=== PATIENT | female | born 1965 | race Caucasian/White ===

== ENCOUNTER 2020-04-07 02:32 | Outpatient (CLI) | payer BC, SELFPAY ==
[2020-04-07 19:47] LABS: SARS-CoV-2 RNA PCR Negative
== END 2020-04-07 02:33 | disposition home or self-care (01) ==
LOC: ANHCOVIDDT 02:33
PROVIDERS: PCP Internal Medicine; Visit Provider Podiatrist Foot & Ankle Surgery
DX: Z01.818 Encounter for other preprocedural examination (principal); Z20.828 Contact with and (suspected) exposure to other viral communicable diseases
CPT/HCPCS: 87635; C9803; U0003

== ENCOUNTER 2020-04-10 04:03 | Day surgery (SDC) | payer BC, SELFPAY ==
[2020-04-06 13:32] VITALS: BMI 35.4
--- NOTE | 2020-04-09 08:36 | WPDANESEPPF ---
Anes - Initial Pre Proc Eval Procedure: Operation Date: 04/10/20 07:30 Proposed Procedures p Lapidus Bunionectomy Left Foot, - Garcia Carrillo JR, MD s Lenard Phalangeal Osteotomy Left Hallux, Parker Shortening Second Metatarsal Osteotomy Left Foot - Garcia Carrillo JR, MD <Clarence Ortez DO - Last Filed: 04/09/20 08:37> Date/Time: 04/09/20 08:36 <Clarence Ortez DO - Last Filed: 04/09/20 08:37> Surgeon: Garcia Carrillo JR, MD <Clarence Ortez DO - Last Filed: 04/09/20 08:37> Pre Op Diagnosis: bunion left foot,metatarsaligia sub 2nd MPJ left <Clarence Ortez DO - Last Filed: 04/09/20 08:37> Patient Data Age: 54 Gender: F Height: 1.66 m Weight: 98 kg <Clarence Ortez DO - Last Filed: 04/09/20 08:37> Allergies Allergy/AdvReac Type Severity Reaction Status Date / Time No Known Allergies Allergy Unverified 04/06/20 13:29 <Clarence Ortez DO - Last Filed: 04/09/20 08:37> Home Medications Medication Instructions Recorded Confirmed Type doxepin 10 mg PO HS PRN 04/06/20 04/06/20 History escitalopram oxalate [Lexapro] 10 mg PO HS 04/06/20 04/06/20 History <Clarence Ortez DO - Last Filed: 04/09/20 08:37> Patient hx anesthesia problems: none <Gabe Avila MD - Last Filed: 04/10/20 07:03> Family hx anesthesia problems: none <Gabe Avila MD - Last Filed: 04/10/20 07:03> [facility] Past Medical History Medical History: Medical History (Updated 04/10/20 @ 07:02 by Gabe Avila MD) Depression with anxiety ETOH abuse 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 Obesity (BMI 30-39.9) Pure hypercholesterolemia <Clarence Ortez DO - Last Filed: 04/09/20 08:37> Surgical History Surgical History: Surgical History (Updated 12/20/19 @ 08:43 by Pamela Christy CMA) History of cholecystectomy <Clarence Ortez DO - Last Filed: 04/09/20 08:37> Family History Family History: Family History (Updated 10/30/17 @ 15:33 by DOCTOR UNKNOWN) Father Family history of lung cancer Family history of malignant neoplasm of kidney Family history of malignant neoplasm Other Family history of cardiovascular disease Family history of rheumatoid arthritis <Clarence Ortez DO - Last Filed: 04/09/20 08:37> Social History Social History: Social History (Updated 12/20/19 @ 08:44 by Pamela Christy [facility]) Smoking status: Never smoker Alcohol intake: current Drinks per week: 16 Substance use: never Living arrangements: with family Spiritual care concerns: No <Clarence Ortez DO - Last Filed: 04/09/20 08:37> Anes - Eval Final PreProcedure Day of Procedure 04/09/20 08:36 <Clarence Ortez DO - Last Filed: 04/09/20 08:37> Patient weight: obese <Clarence Ortez DO - Last Filed: 04/09/20 08:37> obese <Gabe Avila MD - Last Filed: 04/10/20 07:03> Heart: regular rate and rhythm <Clarence Ortez DO - Last Filed: 04/09/20 08:37> regular rate and rhythm <Gabe Avila MD - Last Filed: 04/10/20 07:03> Lungs: clear to auscultation and normal air movement <Clarence Ortez DO - Last Filed: 04/09/20 08:37> clear to auscultation and normal air movement <Gabe Avila MD - Last Filed: 04/10/20 07:03> Airway: Mallampati scale class II <Clarence Ortez DO - Last Filed: 04/09/20 08:37> Mallampati scale class II <Gabe Avila MD - Last Filed: 04/10/20 07:03> Neurological: alert and oriented <Clarence Ortez DO - Last Filed: 04/09/20 08:37> alert and oriented <Gabe Avila MD - Last Filed: 04/10/20 07:03> Last oral intake: >/= 8 hours <Clarence Ortez DO - Last Filed: 04/09/20 08:37> >/= 8 hours <Gabe Avila MD - Last Filed: 04/10/20 07:03> ASA classification: II <Clarence Ortez DO - Last Filed: 04/09/20 08:37
--- NOTE | 2020-04-09 08:37 | WPDANESPNB ---
Anes - Peripheral Nerve Block Date/Time: 04/09/20 08:37 <Clarence Ortez DO - Last Filed: 04/14/20 10:22> I have discussed with the patient/family/POA the placement of a peripheral nerve block for post-operative pain management, including associated risks, benefits, complications, and side effects. Alternative methods of post-operative analgesia were detailed. Questions were solicited and answers provided to the satisfaction of the patient/family/POA. <Clarence Ortez DO - Last Filed: 04/14/20 10:22> Time-Out: A pre-procedural Time-Out was completed immediately before starting the procedure and confirmed: Patient Identification, Site, Procedure, Patient Position and the Availability of Requisite Equipment. <Clarence Ortez DO - Last Filed: 04/14/20 10:22> Clinical Indications: Acute post-operative pain management requested by the operative surgeon. <Clarence Ortez DO - Last Filed: 04/14/20 10:22> Nerve Block Insertion Note Anes-nerve block: posterior fossa sciatic left and adductor canal left <Clarence Ortez DO - Last Filed: 04/14/20 10:22> posterior fossa sciatic (20cc) left and adductor canal (10cc) left <Gabe Avila MD - Last Filed: 04/10/20 08:22> Patient position: supine (for adductor canal) and other (right lateral for popliteal) <Clarence Ortez DO - Last Filed: 04/14/20 10:22> supine <Gabe Avila MD - Last Filed: 04/10/20 08:22> Skin prep: chlorhexidine <Clarence Ortez DO - Last Filed: 04/14/20 10:22> chlorhexidine <Gabe Avila MD - Last Filed: 04/10/20 08:22> Needle: 22 gauge, stimulating, insulated echogenic needle. <Clarence Ortez DO - Last Filed: 04/14/20 10:22> Needle length: 80 mm <Clarence Ortez DO - Last Filed: 04/14/20 10:22> 80 mm <Gabe Avila MD - Last Filed: 04/10/20 08:22> Technique: nerve stimulation lost at (mA) (for popliteal lost at 0.2) and ultrasound <Clarence Ortez DO - Last Filed: 04/14/20 10:22> ultrasound (in plane) <Gabe Avila MD - Last Filed: 04/10/20 08:22> Injectate: bupivacaine 0.5% with epi 5 mcg/ml (20 mL for popliteal, 10 mL for adductor canal) <Clarence Ortez DO - Last Filed: 04/14/20 10:22> bupivacaine 0.25% with epi 5 mcg/ml <Gabe Avila MD - Last Filed: 04/10/20 08:22> Observations: tolerated well <Clarence Ortez DO - Last Filed: 04/14/20 10:22> tolerated well <Gabe Avila MD - Last Filed: 04/10/20 08:22> Complications: none <Clarence Ortez DO - Last Filed: 04/14/20 10:22> none <Gabe Avila MD - Last Filed: 04/10/20 08:22> Procedure start time:: 725 <Gabe Avila MD - Last Filed: 04/10/20 08:22> Procedure end time:: 730 <Gabe Avila MD - Last Filed: 04/10/20 08:22>
[2020-04-10] VITALS (10 sets, daily range): BP systolic 100–137; BP diastolic 58–98; PULSE 56–83; RESP 12–18; TEMP 36.3–36.7; O2SAT 93–100
--- NOTE | ~2020-04-10 | XR_ITS ---
EXAMINATION: XR surgery orthopedic EXAM DATE: 04/10/2020 09:33 INDICATION: Left foot bunionectomy. TECHNIQUE: Fluoroscopy used during XR surgery orthopedic performed by Dr. Garcia Carrillo JR MD. The DAP for this procedure was 26 cGycm2. FINDINGS: Frontal and lateral images demonstrate an orthopedic hardware, with 1st proximal phalangea l osteotomy and internal fixation, and probably surgical changes at the 1st metatarsal head. There ar e 2 small screws in the neck of the 2nd metatarsal head. There is orthopedic hardware bridging the 1s t tarsometatarsal joint. Correlate with procedure note. IMPRESSION: Fluoroscopy used during left bunionectomy surgery. Reviewed, dictated and finalized at location A. PER BEATER
[2020-04-10] MEDS: LACTATED RINGERS 1,000 ML 30 ML IV CONT ×2 (06:40→11:03)
--- NOTE | 2020-04-10 07:18 | WPDHPUPDATE1 ---
History and Physical Update Update Date/Time: 04/10/20 07:18 History and Physical has been reviewed, including an updated exam of the patient. There are NO changes in the patient's condition. Risks, benefits, and alternatives have been discussed and questions answered. Patient agrees to proceed with procedure.
[2020-04-10] MEDS: SCOPOLAMINE 1.5 MG PATCH TRANSDERM (07:35)
[2020-04-10] MEDS: ceFAZolin 2 GM/D5W 50 ML 2 GM/50 ML BAG IVPB (07:42)
[2020-04-10] MEDS: fentaNYL CITRATE INJ (*CRX) 100 MCG/2 ML VIAL 25 MCG IV PUSH ×8 (10:12→10:29)
--- NOTE | 2020-04-10 10:13 | PM.OP ---
Procedure Note - Brief Procedure Note - Brief Date of procedure: 04/10/20 Pre-op diagnosis: bunion left foot,metatarsaligia sub 2nd MPJ left Post-op diagnosis: same Procedure performed: 1. Lapidus bunionectomy left foot 2. Lenard phalangeal osteotomy left hallux 3. Parker shortening 2nd metatarsal osteotomy left foot Anesthesia: GLMA Surgeon: Garcia Carrillo JR, DPM Estimated blood loss (mL): 1 Complications: No immediate complications Condition: stable Disposition: same day
[2020-04-10] MEDS: HYDROmorphone HCL INJ (*CRX) 1 MG/ML SYR 0.5 MG IV PUSH ×2 (10:32→10:40)
[2020-04-10] MEDS: MIDAZOLAM HCL (*CRX) 2 MG/2 ML VIAL IV PUSH (10:59)
[2020-04-10] MEDS: oxyCODONE HCL (*CRX) 5 MG TAB IR PO (12:08)
--- NOTE | 2020-04-10 14:06 | SUR.PHASEII ---
NURYS RN INSTRUCTED PT RE: SQ INJECTION OF ANTI-COAGULANT MED PRESCRIBED TODAY BY DR. MEYER; PT RETURNED DEMONSTRATION WITH GOOD TECHNIQUE.
--- NOTE | 2020-04-10 23:04 | OP_ITS ---
DATE OF PROCEDURE: 04/10/2020 PREOPERATIVE DIAGNOSES: 1. Hallux abductovalgus deformity, left foot. 2. Metatarsalgia, 2nd metatarsophalangeal joint, left foot. POSTOPERATIVE DIAGNOSES: 1. Hallux abductovalgus deformity, left foot. 2. Metatarsalgia, 2nd metatarsophalangeal joint, left foot. PROCEDURE: 1. Lapidus bunionectomy, left foot. 2. Lenard phalangeal osteotomy of the left hallux. 3. Parker shortening, 2nd metatarsal osteotomy, left foot. PATHOLOGY: None. ANESTHESIA: General with popliteal fossa block. HEMOSTASIS: Pneumatic ankle tourniquet at 250 mmHg. ESTIMATED BLOOD LOSS: Minimal. MATERIALS USED: One Treace lapiplasty system with two 4-hole plates and 8 locking screws, 1 David 8 mm Nitinol staple, 2 Norman 2.0 mm cannulated screws, 3-0 PDS, 2-0 Vicryl, 3-0 Vicryl, 4-0 Vicryl, and 4-0 Monocryl. INJECTABLES: None. COMPLICATIONS: None. PROCEDURE IN DETAIL: Under mild sedation, the patient was brought into the operative room, placed on the operating room table in the supine position. Pneumatic ankle tourniquet was placed about the patient's left ankle. Following general anesthesia and a previous popliteal fossa block, the foot was then scrubbed, prepped, and draped in the usual aseptic manner. An Esmarch bandage was then used to examine the patient's left foot and pneumatic ankle tourniquet was then inflated. Surgery began in the following manner. Attention was directed to the dorsal aspect of the 1st metatarsocuneiform joint of the left foot where a 4 cm incision was made just medial to the extensor hallucis longus tendon. Incision was continued deep down through the subcutaneous tissues using sharp and blunt dissection. All bleeders were ligated and cauterized as necessary. At this point, a full length periosteal incision was made. The full-length of the skin incision exposing the 1st metatarsal cuneiform joint. At this point, a sagittal saw blade was used to free up any adhesions to the 1st metatarsocuneiform joint. A Steinmann pin was placed along the medial aspect of the base of the 1st metatarsal and the 1st metatarsal was rotated in order to demonstrate the full frontal plane rotation of the bunion deformity could be achieved. A fulcrum was placed along the lateral aspect of the 1st metatarsal. A 1 cm incision was made along the lateral aspect of the 1st metatarsophalangeal joint. At this point, a lateral capsule release was performed. I also freed up the adductor hallucis tendon as well as the fibular sesamoid both laterally, proximally, and distally. At this point, the lateral contracture present to the bunion deformity was noted to be slightly reduced. Attention was then redirected back to the 1st metatarsocuneiform joint. The lapiplasty positioner was placed along the base of the 1st metatarsal and also through a small stab incision that was made overlying the base of the 2nd metatarsal. The positioner was tightened in order to reduce the 1st intermetatarsal angle as well as the frontal plane rotation of the 1st metatarsal. The joint seeker was placed within the 1st metatarsocuneiform joint as well as the cutting guide. Fluoroscopy was used to make sure that adequate position of the cutting guide was positioned atop the 1st metatarsocuneiform joint as well as in order to make sure that adequate resection of the base of the 1st metatarsal as well as the anterior lateral aspect of the cuneiform will be resected. After fluoroscopic imaging was used to make sure that the resection was noted, the sagittal bone saw was used to resect the articular surface to the anterior aspect of the medial cuneiform as well as the base of the 1st metatarsal. At this point, the cutting guide was removed and the resection of the articular carti
== END 2020-04-10 13:05 | disposition home or self-care (01) ==
PROVIDERS: PCP Internal Medicine; Visit Provider Podiatrist Foot & Ankle Surgery
PROC: (CPT 28299; principal; 2020-04-10 07:30)
PROC: (CPT 28750; 2020-04-10 07:30)
DX: M20.12 Hallux valgus (acquired), left foot (principal); M77.42 Metatarsalgia, left foot; G89.18 Other acute postprocedural pain
CPT/HCPCS: 28298; 28308; 28297; 64447; 64445; A9270; C1713; C9290; J0690; J1100; J1170; J1885; J2250; J2405; J2704; J3010; J7120

== ENCOUNTER 2022-02-15 07:52 | Outpatient (CLI) | payer BC, SELFPAY ==
--- NOTE | 2022-02-28 19:43 | WPDHOMESLEEP ---
Sleep Study - Home Unattended Date of Study: 02/15/22 Ordering Provider: Alexa Sosa NP Interpreting Provider: Merced Hagan, DO Home Sleep Study Type: Apnea Link Air Height: 1.65 m Weight: 88.451 kg Body Mass Index: 32.4 Neck Circumference (inches): 15.25 [place]ino: 5 Reason for Sleep Study Unable to stay asleep Sleep History The patient is a 56-year-old female with anxiety, depression, GERD, hyperlipidemia, alcohol abuse, insomnia and obesity that had a sleep study ordered by her primary care for evaluation sleep apnea. The patient rarely awakens from sleep short of breath. She occasionally awakens at night with heartburn, belching or cough. She frequently snores and is occasionally loud enough others complain. She occasionally has trouble sleeping when she has a cold. He denies waking up gasping for air throughout the night. She denies having breathing problems at night observed by herself or others. She frequently sweats excessively at night. She occasionally has heart palpitations or irregular heartbeats during the night. She rarely falls asleep during the day. She rarely falls asleep while driving. She rarely experiences loss of muscle tone when extremely emotional. She occasionally has trouble at school or work due to sleepiness. She denies feeling unable to move while waking up or falling asleep. She rarely experiences vivid dreamlike scenes upon awakening or falling asleep. She denies feeling afraid of going to sleep. She rarely has nightmares. She rarely remembers her dreams. She frequently has thoughts racing through her mind. She frequently feels sad, depressed and anxious. She rarely has muscular tension. She rarely notices parts of her body jerk. She rarely kicks during the night. She rarely has crawling and aching feelings in her legs and occasionally has leg pain during the night. He denies grinding her teeth during sleep and awakening with morning jaw pain. She denies being bothered by pain during the day and denies being awakened by pain during the night. She denies waking up feeling stiff in the morning. She denies waking up with sore achy muscles. She occasionally wakes up with pain in the neck, spine or other joints. She goes to bed at 10:00 p.m. on both weekdays and weekends. He can take her several hours to fall asleep. She wakes up several times throughout the night for unknown reasons. He can take hours for her to fall back asleep. She wakes up between 6-7 a.m. on both weekdays and weekends. She typically gets 4 hours of sleep per night. She does not stay in bed after waking up in morning. She currently lives with her . She denies consuming any caffeinated beverages within 2 hours of bedtime. She denies engaging in physical exercise before bedtime. She will watch television before falling asleep. She denies taking naps in the afternoon or She drinks 2 caffeinated beverages per day. She drinks 2-3 alcoholic beverages per day. She denies tobacco and recreational drug use. 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
[2022-02-28 19:45] VITALS: BMI 32.4
== END 2022-02-16 15:17 | disposition home or self-care (01) ==
LOC: ANHCSM 07:55
PROVIDERS: PCP Internal Medicine; Visit Provider Nurse Practitioner
DX: G47.33 Obstructive sleep apnea (adult) (pediatric) (principal)
CPT/HCPCS: 95806

== ENCOUNTER 2022-07-11 14:24 | Outpatient (CLI) | payer BC, SELFPAY ==
--- NOTE | ~2022-07-11 | XR_ITS ---
EXAMINATION: XR chest 2V 07/11/2022 14:37 INDICATION: Cough PROCEDURE: 2 view chest COMPARISON: 01/10/2015 FINDINGS: The lungs are clear. The cardiomediastinal silhouette is within normal limits. There are no pleural effusions. There is no pneumothorax suspected. IMPRESSION: 1: NO ACUTE CARDIOPULMONARY DISEASE. Reviewed, dictated and finalized at location B. PLANNER
== END 2022-07-11 14:25 ==
PROVIDERS: PCP Internal Medicine; Visit Provider Nurse Practitioner
DX: R05.9 Cough, unspecified (principal)
CPT/HCPCS: 71046

== ENCOUNTER 2022-11-17 08:29 | Outpatient (CLI) | payer BC, SELFPAY ==
--- NOTE | ~2022-11-17 | US_ITS ---
EXAMINATION: US venous doppler [facility] DATE: 11/17/2022 09:09 INDICATION: Left lower limb pain TECHNIQUE: Segal scale images without and with compression and Doppler images of the left lower extrem ity veins were obtained. COMPARISON: None FINDINGS: The left common femoral vein, profunda femoral vein, femoral vein, popliteal vein, peroneal trunk, posterior tibial veins, and greater saphenous vein are patent. There is partial thrombosis of the lesser saphenous vein. IMPRESSION: 1. No evidence of deep venous thrombosis. 2. Partial thrombosis of the lesser saphenous vein, a superficial lower extremity vein. Reviewed, dictated and finalized at location L. IMPRESSION: 1. No evidence of deep venous thrombosis. 2. Partial thrombosis of the lesser saphenous vein, a superficial lower extremi ty vein.
== END 2022-11-17 08:30 | disposition home or self-care (01) ==
PROVIDERS: PCP Internal Medicine; Visit Provider Nurse Practitioner
DX: M79.605 Pain in left leg (principal); M25.562 Pain in left knee; I82.812 Embolism and thrombosis of superficial veins of left lower extremity
CPT/HCPCS: 73564; 93971

== ENCOUNTER → 2022-11-24 09:46 | Outpatient (CLI) | payer BC, SELFPAY ==
--- NOTE | ~2022-11-24 | US_ITS ---
EXAMINATION: US venous doppler [facility] DATE: 11/24/2022 10:10 INDICATION: Embolism and thrombosis of the superficial veins of the left lower limb TECHNIQUE: Grayscale ultrasound images without and with compression and Doppler ultrasound images of the left lower extremity veins were obtained. COMPARISON: 11/17/2022 FINDINGS: The visualized portions of left common femoral vein, profunda (deep) femoral vein, femoral vein, popl iteal vein, peroneal veins, posterior tibial veins, gastrocnemius vein and greater saphenous vein out flow are patent. Noncompressible nonocclusive appearing thrombus in the left lesser saphenous vein. 2 .2 x 1.6 x 0.7 cm Lynne's cyst. IMPRESSION: 1. Persistent thrombosis of the left lesser saphenous vein which is a superficial vein. No deep veno us necrosis in the left lower limb. Reviewed, dictated and finalized at location L. IMPRESSION: 1. Persistent thrombosis of the left lesser saphenous vein which is a superfic ial vein. No deep venous necrosis in the left lower limb.
== END ==
PROVIDERS: PCP Internal Medicine; Visit Provider Nurse Practitioner
DX: I82.812 Embolism and thrombosis of superficial veins of left lower extremity (principal)
CPT/HCPCS: 93971

== ENCOUNTER 2022-11-25 10:33 | Outpatient (CLI) | payer BC, SELFPAY ==
[2022-11-25 18:31] LABS: Basophils Absolute Auto 0.1 K/mm3 (0.0-0.1); Basophils Percent Auto 1.3 % (0.2-1.2); Eosinophils Absolute Auto 0.2 K/mm3 (0-0.3); Eosinophils Percent Auto 3.4 % (0-4.4); Hematocrit 39.8 % (37.0-47.0); Hemoglobin 13.1 g/dL (12.0-15.0); Immature Granulocyte Absolute 0.01 K/mm3 (0.00-0.031); Immature Granulocyte Percent A 0.2 % (0-0.5); Lymphocytes Absolute Auto 2.09 K/mm3 (0.9-3.2); Lymphocytes Percent Auto 39.7 % (18.3-44.2); Mean Corpuscular HGB Conc 32.9 g/dl (32-36); Mean Corpuscular Hemoglobin 31.6 pg (26-34); Mean Corpuscular Volume 95.9 fl (80-100); Mean Platelet Volume 10.2 fl (7.4-10.4); Monocytes Absolute Auto 0.5 K/mm3 (0.1-0.6); Monocytes Percent Auto 8.7 % (2.6-8.5); Neutrophils Absolute Auto 2.5 K/mm3 (1.3-6.7); Neutrophils Percent Auto 46.7 % (45.5-73.1); Platelet Count Result 291 k/mm3 (150-375); Red Blood Count 4.15 M/mm3 (4.2-5.4); Red Cell Distribution Width 12.5 % (11.5-14.5); White Blood Count 5.3 K/mm3 (4.5-10.0)
[2022-11-25 18:41] LABS: Alanine Aminotransferase 26 U/L (6-35); Albumin Level 4.2 g/dL (3.5-5.1); Alkaline Phosphatase 82 U/L (38-126); Anion Gap 3 mmol/L (8-16); Aspartate Amino Transferase 29 U/L (14-36); Bilirubin,Total 0.5 mg/dL (0.2-1.3); Blood Urea Nitrogen 11 mg/dL (7-17); Calcium 9.1 mg/dL (8.4-10.2); Carbon Dioxide 34 mmol/L (22-30); Chloride 102 mmol/L (98-107); Cholesterol 223 mg/dL (0-200); Estimated Glomerular Filt Rate > 60; Glucose 105 mg/dL (65-110); HDL Direct 90 mg/dL; Potassium 4.5 mmol/L (3.4-5.0); Sodium 139 mmol/L (137-145); Triglycerides 92 mg/dL (<150)
[2022-11-25 18:56] LABS: LDL Cholesterol Direct 92 mg/dL
[2022-12-01 22:42] LABS: Factor V (Leiden) Mutation NEGATIVE
== END 2022-11-25 10:34 | disposition home or self-care (01) ==
LOC: ANHGOSHLAB 10:34
PROVIDERS: PCP Internal Medicine; Visit Provider Nurse Practitioner
DX: I82.812 Embolism and thrombosis of superficial veins of left lower extremity (principal)
CPT/HCPCS: 36415; 80053; 80061; 81241; 84443; 85025

== ENCOUNTER 2023-01-19 08:50 | Outpatient (CLI) | payer BC, SELFPAY ==
--- NOTE | ~2023-01-19 | US_ITS ---
EXAMINATION: US venous doppler [facility] DATE: 01/19/2023 09:07 INDICATION: Left lesser saphenous vein superficial venous thrombosis TECHNIQUE: Grayscale ultrasound images without and with compression and Doppler ultrasound images of the left lower extremity veins were obtained. COMPARISON: None. FINDINGS: The visualized portions of left common femoral vein, profunda (deep) femoral vein, femoral vein, popl iteal vein, peroneal veins, posterior tibial veins, gastrocnemius vein and greater saphenous vein out flow are patent. Superficial venous thrombus within the distal left lesser saphenous vein which is on ly partially compressible. The previously thrombosed or proximal left lesser saphenous vein is now pa tent and compressible. IMPRESSION: 1. Decrease in the amount of superficial venous thrombosis now isolated to the distal left lesser sap henous vein. 2. No deep venous thrombosis in the left lower limb. Reviewed, dictated and finalized at location A. IMPRESSION: 1. Decrease in the amount of superficial venous thrombosis now isolated to the distal left lesser saphenous vein. 2. No deep venous thrombosis in the left lower limb.
== END 2023-01-19 08:51 ==
LOC: GOSHIMG 08:51
PROVIDERS: PCP Internal Medicine; Visit Provider Nurse Practitioner
DX: I82.812 Embolism and thrombosis of superficial veins of left lower extremity (principal)
CPT/HCPCS: 93971

== ENCOUNTER 2023-01-31 14:55 | Outpatient (NON) | payer BC, SELFPAY ==
[2023-01-31 16:21] LABS: Toxigenic C. Diff NEGATIVE (NEGATIVE)
[2023-02-02 20:44] LABS: H pylori Ag Stool Not Detected (Not Detected)
[2023-02-06 19:03] LABS: Calprotectin, Stool 29 mcg/g
[2023-02-08 20:13] LABS: Pancreatic Elastase, Stool >500 mcg/g
== END 2023-01-31 14:56 | disposition home or self-care (01) ==
PROVIDERS: PCP Internal Medicine; Visit Provider Nurse Practitioner
DX: K52.831 Collagenous colitis (principal); R14.0 Abdominal distension (gaseous); R19.7 Diarrhea, unspecified; A04.8 Other specified bacterial intestinal infections
CPT/HCPCS: 82653; 83993; 87045; 87269; 87338; 87427; 87449; 87493

== ENCOUNTER 2023-03-02 10:37 | Outpatient (CLI) | payer BC, SELFPAY ==
--- NOTE | ~2023-03-02 | US_ITS ---
EXAMINATION: US venous doppler [facility] DATE: 03/02/2023 11:02 INDICATION: Left lower limb pain TECHNIQUE: Segal scale images without and with compression and Doppler images of the left lower extrem ity veins were obtained. COMPARISON: None FINDINGS: The left common femoral vein, profunda femoral vein, femoral vein, popliteal vein, peroneal trunk, posterior tibial veins, and greater saphenous vein are patent. The lesser saphenous vein is n ormal. IMPRESSION: 1. Patent left lower extremity veins. No evidence of deep venous thrombosis. Reviewed, dictated and finalized at location L.
== END 2023-03-02 10:38 | disposition home or self-care (01) ==
LOC: ANHIMG 10:42
PROVIDERS: PCP Internal Medicine; Visit Provider Internal Medicine
DX: M79.605 Pain in left leg (principal); I82.812 Embolism and thrombosis of superficial veins of left lower extremity
CPT/HCPCS: 93971

== ENCOUNTER 2023-04-03 09:32 | Outpatient (CLI) | payer BC, SELFPAY ==
--- NOTE | ~2023-04-03 | XR_ITS ---
Right Knee Technique: AP, lateral, and sunrise views were obtained. Clinical History: Pain Findings: No fracture or dislocation is seen. Osseous alignment is anatomic. Minimal patellar spurrin g noted. Soft tissues are unremarkable. No joint effusion is seen. Impression: Minimal patellar spurring. Reviewed, dictated and finalized at location . MING MACHINE OPERATOR Impression: Minimal patellar spurring.
--- NOTE | ~2023-04-03 | XR_ITS ---
Left Knee Technique: AP, lateral, and sunrise views were obtained. Clinical History: Pain Findings: No fracture or dislocation is seen. Osseous alignment is anatomic. Joint spaces are preserv ed without degenerative or erosive change. Small joint effusion is seen. Impression: No fracture or dislocation. Small joint effusion. Reviewed, dictated and finalized at [facility]. TRUCKER Impression: No fracture or dislocation. Small joint effusion.
--- NOTE | ~2023-04-03 | US_ITS ---
EXAMINATION: US venous doppler [facility] DATE: 04/03/2023 10:33 INDICATION: Left lower limb pain and swelling. Acute embolism and thrombosis of unspecified veins. TECHNIQUE: Grayscale ultrasound images without and with compression and Doppler ultrasound images of the left lower extremity veins were obtained. COMPARISON: Ultrasound 03/02/2023 FINDINGS: The visualized portions of left common femoral vein, profunda (deep) femoral vein, femoral vein, popl iteal vein, peroneal veins, posterior tibial veins, and greater saphenous vein outflow are patent. Th ere is a moderate-sized Lynne's cyst. IMPRESSION: 1. No deep venous thrombosis. 2. Moderate-sized Lynne's cyst. Reviewed, dictated and finalized at location A. ITY SYSTEMS TECHNICIAN
== END 2023-04-03 09:33 | disposition home or self-care (01) ==
PROVIDERS: PCP Internal Medicine; Visit Provider Internal Medicine
DX: I82.402 Acute embolism and thrombosis of unspecified deep veins of left lower extremity (principal); M25.561 Pain in right knee; M71.22 Synovial cyst of popliteal space [Baker], left knee
CPT/HCPCS: 73562; 93971

== ENCOUNTER 2023-06-01 08:33 | Outpatient (CLI) | payer BC, SELFPAY ==
[2023-06-01 15:21] LABS: Alanine Aminotransferase 20 U/L (6-35); Alkaline Phosphatase 88 U/L (38-126); Anion Gap 4 mmol/L (8-16); Aspartate Amino Transferase 41 U/L (14-36); Bilirubin,Total 0.5 mg/dL (0.2-1.3); Blood Urea Nitrogen 16 mg/dL (7-17); Calcium 9.2 mg/dL (8.4-10.2); Carbon Dioxide 32 mmol/L (22-30); Chloride 102 mmol/L (98-107); Estimated Glomerular Filt Rate > 60; Glucose 88 mg/dL (65-110); Potassium 4.3 mmol/L (3.4-5.0); Sodium 138 mmol/L (137-145)
[2023-06-01 19:44] LABS: Hemoglobin A1C 5.5 % (<5.7)
== END 2023-06-01 08:34 | disposition home or self-care (01) ==
LOC: ANHGOSHLAB 08:34
PROVIDERS: PCP Internal Medicine; Visit Provider Nurse Practitioner
DX: E66.9 Obesity, unspecified (principal)
CPT/HCPCS: 36415; 80053; 83036

== ENCOUNTER 2023-07-06 00:10 | Day surgery (SDC) | payer BC, SELFPAY ==
[2023-06-15 10:10] VITALS: BMI 31.1
--- NOTE | 2023-07-04 09:44 | SUR.PREOP ---
Patient called regarding upcoming procedure. Reviewed preop instructions, appointment times, and procedure prep.
--- NOTE | 2023-07-05 16:37 | PM.HPGS ---
History of Present Illness History of Present Illness Consent: Risks, benefits, and alternatives have been discussed and questions answered. Patient agrees to proceed with procedure. Chief complaint: diarrhea,gaseous,Collagenous colitis Narrative: Leslee Olivares is a 57 year old female with chronic diarrhea. Her last colonoscopy was 7 years ago. At that time random biopsies showed lymphocytic colitis with collagenous colitis. She has been on budesonide for that. she remembers taking budesonide for a while and got better she has been off it now for several years. She had restarted it when it was prescribed a few months ago but it ran out. It did seem to help but now her stools are again loose and frequent especially after meals, as she has been off the medication. 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 Sibling No problems noted. Other Family history of cardiovascular disease Family history of rheumatoid arthritis Social History Social History Social History: Caffeine-daily Smoking status: Never smoker Alcohol intake: current Drinks per week: 28 Alcohol use details: BEER Substance use: never Substance use type: does not use Lack of Transportation: No Lack of Food: Never True Current Housing: I Have Housing Concerned About Future Housing: No Difficulty Paying Gas/Electric Bills: No Difficulty Paying for Meds: No Currently Unemployed: No Education: Bachelor's Degree Difficulty w/ Childcare or Family Care: No Living arrangements: with family Spiritual care concerns: No Meds Home Medications and Allergies Home Medications Medication Instructions Recorded Confirmed Type vilazodone 10 mg tablet 20 mg PO DAILY 12/23/21 07/06/23 History trazodone 50 mg tablet 100 mg PO QHS 01/26/23 07/06/23 History budesonide 3 mg See Rx Instructions .Route 03/06/23 07/06/23 Rx capsule,delayed,extended release .COMPLEX #180 caps semaglutide (weight loss) 0.25 0.25 mg (0.5 mL) subcut WEEKLY #2 06/01/23 07/06/23 Rx mg/0.5 mL subcutaneous pen mL injector (Wegovy) Allergies Allergy/AdvReac Type Severity Reaction Status Date / Time No Known Allergies Allergy Verified 07/06/23 07:16 Exam Resp: Auscultation: clear to auscultation bilaterally Cardio: Rate: regular rate Rhythm: regular rhythm GI: GI Palp: Yes Soft to palpation and No Tenderness to palpation present (GI) Assessment and Plan Assessment and plan (1) Diarrhea: Qualifiers: Diarrhea type: unspecified type Qualified Code(s): R19.7 - Diarrhea, unspecified Code(s): R19.7 - Diarrhea, unspecified Status: Acute Assessment and Plan: Colonoscopy with possible biopsy or polypectomy or cautery or injection of substances.
[2023-07-06 07:19] VITALS: BP 116/76; PULSE 101; RESP 18; TEMP 36.3; O2SAT 100
[2023-07-06] MEDS: LACTATED RINGERS 1,000 ML 150 ML IV CONT (07:21)
--- NOTE | 2023-07-06 08:16 | WPDANESEPPF ---
Anes - Initial Pre Proc Eval Procedure: Operation Date: 07/06/23 08:30 Proposed Procedures p Colonoscopy - Migel Wise MD Date/Time: 07/06/23 08:16 Surgeon: Migel Wise MD Pre Op Diagnosis: diarrhea,gaseous,Collagenous colitis Patient Data Age: 57 Gender: F Height: 1.65 m Weight: 84.7 kg Last Vital Signs Temp 97.4 F L 07/06/23 07:19 Pulse 101 H 07/06/23 07:19 Resp 18 07/06/23 07:19 BP 116/76 07/06/23 07:19 Pulse Ox 100 07/06/23 07:19 O2 Del Method Room Air 07/06/23 07:19 Allergies Allergy/AdvReac Type Severity Reaction Status Date / Time No Known Allergies Allergy Verified 07/06/23 07:16 Home Medications Medication Instructions Recorded Confirmed Type vilazodone 10 mg tablet 20 mg PO DAILY 12/23/21 07/06/23 History trazodone 50 mg tablet 100 mg PO QHS 01/26/23 07/06/23 History budesonide 3 mg See Rx Instructions .Route 03/06/23 07/06/23 Rx capsule,delayed,extended release .COMPLEX #180 caps semaglutide (weight loss) 0.25 0.25 mg (0.5 mL) subcut WEEKLY #2 06/01/23 07/06/23 Rx mg/0.5 mL subcutaneous pen mL injector (Wegovy) Patient hx anesthesia problems: none Family hx anesthesia problems: none Results Review: All pre-operative results and documents have been reviewed as part of the pre-operative evaluation. 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 Sibling No problems noted. Other Family history of cardiovascular disease Family history of rheumatoid arthritis Social History Social History Social History: Caffeine-daily Smoking status: Never smoker Alcohol intake: current Drinks per week: 28 Alcohol use details: BEER Substance use: never Substance use type: does not use Lack of Transportation: No Lack of Food: Never True Current Housing: I Have Housing Concerned About Future Housing: No Difficulty Paying Gas/Electric Bills: No Difficulty Paying for Meds: No Currently Unemployed: No Education: Bachelor's Degree Difficulty w/ Childcare or Family Care: No Living arrangements: with family Spiritual care concerns: No Anes - Eval Final PreProcedure Day of Procedure 07/06/23 08:16 Patient weight: obese Heart: regular rate and rhythm Lungs: clear to auscultation Airway: Mallampati scale class II Neurological: alert and oriented Last oral intake: >/= 8 hours ASA classification: III Emergent: no Anesthetic plan: proceed Anesthesia type and monitoring: general GIVS and standard monitoring Results Review: All pre-operative results and documents have been reviewed as part of the pre-operative evaluation. Informed Consent: The patient's anesthetic plan and its attendant risks and benefits were discussed with the patient/family/POA. Questions were solicited and answers provided to the satisfaction of the patient/family/POA.
[2023-07-06 08:40] VITALS: BP 124/71; PULSE 80; RESP 22; O2SAT 100
[2023-07-06 08:50] VITALS: BP 106/69; PULSE 75; RESP 21; O2SAT 100
[2023-07-06 09:00] VITALS: BP 106/69; PULSE 73; RESP 18; O2SAT 100
[2023-07-06] MEDS: DICYCLOMINE HCL INJ 20 MG/2 ML VIAL IM (09:24)
== END 2023-07-06 09:35 | disposition home or self-care (01) ==
PROVIDERS: PCP Internal Medicine; Visit Provider Internal Medicine Gastroenterology
PROC: 0DJD8ZZ Inspection of Lower Intestinal Tract, Via Natural or Artificial Opening Endoscopic (ICD-10-PCS; CPT 45378; principal; 2023-07-06 08:30)
DX: R19.7 Diarrhea, unspecified (principal); F41.8 Other specified anxiety disorders; K21.9 Gastro-esophageal reflux disease without esophagitis; E78.00 Pure hypercholesterolemia, unspecified; F19.982 Other psychoactive substance use, unspecified with psychoactive substance-induced sleep disorder; E66.9 Obesity, unspecified; Z68.31 Body mass index [BMI] 31.0-31.9, adult; Z79.85 Long-term (current) use of injectable non-insulin antidiabetic drugs; Z90.49 Acquired absence of other specified parts of digestive tract; Z82.49 Family history of ischemic heart disease and other diseases of the circulatory system; Z80.1 Family history of malignant neoplasm of trachea, bronchus and lung; Z80.51 Family history of malignant neoplasm of kidney
CPT/HCPCS: 45380; 88305; J0500; J2704; J7120

== ENCOUNTER 2023-07-24 09:06 | Outpatient (CLI) | payer BC, SELFPAY ==
--- NOTE | ~2023-07-24 | MR_ITS ---
EXAMINATION: MR knee LT wo con DATE: 07/24/2023 10:02 INDICATION: Chondromalacia of the left patellofemoral joint TECHNIQUE: Magnetic resonance imaging (MRI) of the left knee was performed without intravenous contra st. Sequences included coronal PD-weighted FSE, coronal PD-weighted FS FSE, sagittal T2-weighted FSE , sagittal PD-weighted FS FSE and axial PD weighted fat saturated FSE. COMPARISON: None. FINDINGS: Medial compartment: Full-thickness radial tear at the lateral side of the posterior horn of the medial meniscus. Full-thi ckness chondral ulceration and fissuring with chondral surface irregularity and underlying subarticul ar edema-like signal change along the anterior to central weightbearing medial femoral condyle and an terior third of the medial tibial plateau. Lateral compartment: Lateral meniscus is normal. Partial-thickness chondral ulceration involving up to 50% the cartilage t hickness with smooth chondral surface and without degenerative subchondral changes at the medial side of the junction of the mid to posterior weightbearing medial femoral condyle. Remaining cartilage ap pears relatively preserved. Patellofemoral compartment: There is deep chondral ulceration and fissuring at the patella centered along the apical ridge and im mediately adjacent medial and lateral patellar facets. There is some underlying subarticular edema-li ke signal change. Additional deep chondral ulceration and fissuring with subtle underlying cortical i rregularity at the trochlear groove and medial trochlea and without degenerative subchondral changes at the medial side of the lateral trochlea. Ligaments and tendons: Anterior and posterior cruciate ligaments are normal. The medial collateral ligament and fibular sadaf ateral ligament complex are normal. The extensor mechanism is normal. The visualized medial and later al hamstring tendons as well as the iliotibial band are normal. Fluid: Moderate-sized knee joint effusion with scattered synovitis at the suprapatellar pouch on the posteri or margin of Hoffa's fat pad. There is some soft tissue edema along the margins of a 5.8 x 2.6 x 2.4 cm Lynne's cyst at the medial side of the popliteal fossa. No loose osteochondral bodies identified. Osseous/other: Bone alignment is normal. No fracture or pathologic marrow replacing process. IMPRESSION: 1. Full-thickness radial tear at the posterior horn of the medial meniscus. 2. Tricompartmental osteoarthritis, moderate severity with high-grade chondral malacia in the medial compartment, mild to moderate with additional high-grade chondral malacia in the patellofemoral belem rtment and mild with small region of moderate grade chondral malacia the lateral compartment. 3. Moderate-sized left knee joint effusion and moderate-sized Lynne's cyst. Reviewed, dictated and finalized at location A. [facility] IMPRESSION: 1. Full-thickness radial tear at the posterior horn of the medial meniscus. 2. Tricompartmental osteoarthritis, moderate severity with high-grade chondral malacia in the medial compartment, mild to moderate with additional high-grade chondral malacia in the patellofemoral compartment and mild with small region o f moderate grade chondral malacia the lateral compartment. 3. Moderate-sized left knee joint effusion and moderate-sized Lynne's cyst.
== END 2023-07-24 09:07 ==
LOC: GOSHIMG 09:08
PROVIDERS: PCP Family Medicine Sports Medicine; Visit Provider Family Medicine Sports Medicine
DX: M22.42 Chondromalacia patellae, left knee (principal); M71.22 Synovial cyst of popliteal space [Baker], left knee; M25.462 Effusion, left knee; S83.242A Other tear of medial meniscus, current injury, left knee, initial encounter; X58.XXXA Exposure to other specified factors, initial encounter; M17.12 Unilateral primary osteoarthritis, left knee
CPT/HCPCS: 73721

== ENCOUNTER 2023-09-04 08:52 | Outpatient (CLI) | payer BC, SELFPAY ==
[2023-09-04 11:01] LABS: Alanine Aminotransferase 19 U/L (6-35); Albumin Level 4.5 g/dL (3.5-5.1); Alkaline Phosphatase 78 U/L (38-126); Anion Gap 4 mmol/L (4-12); Aspartate Amino Transferase 34 U/L (14-36); Bilirubin,Total 0.5 mg/dL (0.2-1.3); Blood Urea Nitrogen 15 mg/dL (7-17); Calcium 9.4 mg/dL (8.4-10.2); Carbon Dioxide 30 mmol/L (22-30); Chloride 103 mmol/L (98-107); Estimated Glomerular Filt Rate > 60; Glucose 109 mg/dL (65-110); Potassium 4.4 mmol/L (3.4-5.0); Sodium 137 mmol/L (137-145)
[2023-09-04 12:04] LABS: Basophils Percent Auto 0.6 % (0.2-1.2); Eosinophils Absolute Auto 0.3 K/mm3 (0-0.3); Eosinophils Percent Auto 6.4 % (0-4.4); Hematocrit 39.5 % (37.0-47.0); Hemoglobin 12.5 g/dL (12.0-15.0); Immature Granulocyte Absolute 0.01 K/mm3 (0.00-0.031); Immature Granulocyte Percent A 0.2 % (0-0.5); Lymphocytes Absolute Auto 1.22 K/mm3 (0.9-3.2); Lymphocytes Percent Auto 25.4 % (18.3-44.2); Mean Corpuscular HGB Conc 31.6 g/dl (32-36); Mean Corpuscular Hemoglobin 31.2 pg (26-34); Mean Corpuscular Volume 98.5 fl (80-100); Mean Platelet Volume 10.6 fl (7.4-10.4); Monocytes Absolute Auto 0.7 K/mm3 (0.1-0.6); Monocytes Percent Auto 13.7 % (2.6-8.5); Neutrophils Absolute Auto 2.6 K/mm3 (1.3-6.7); Neutrophils Percent Auto 53.7 % (45.5-73.1); Platelet Count Result 263 k/mm3 (150-375); Red Blood Count 4.01 M/mm3 (4.2-5.4); Red Cell Distribution Width 12.6 % (11.5-14.5); White Blood Count 4.8 K/mm3 (4.5-10.0)
== END 2023-09-04 08:53 | disposition home or self-care (01) ==
PROVIDERS: PCP Internal Medicine; Visit Provider Clinical Nurse Specialist
DX: F10.90 Alcohol use, unspecified, uncomplicated (principal); Z01.818 Encounter for other preprocedural examination
CPT/HCPCS: 36415; 80053; 85025

== ENCOUNTER 2023-09-06 00:22 | Day surgery (SDC) | payer BC, SELFPAY ==
[2023-08-30 09:40] VITALS: BMI 31.1
--- NOTE | 2023-08-30 09:45 | PC.NURSE ---
Report to the Outpatient Waiting Room, entrance under the green pavilion located off [facility], at time 1000 on date 09/06/23. Planned Procedure Time: 1200. Time changes happen often and if your time is changed the preop area will call you the afternoon before. - You and your visitor will be asked to self-screen and do not enter if you have any COVID symptoms. - A mask is optional within the hospital at this time. Patients may have clear liquids (water, carbonated beverages, clear teas, apple juice) until 3 hours prior to surgery with a maximum of 20 ounces. - No food from midnight until time of surgery Take the following medications with a SIP of water the morning of surgery: VILAZODONE DO NOT STOP ANY OF YOUR OTHER PRESCRIPTION MEDICATIONS PRIOR TO SURGERY ?EXCEPT THE FOLLOWING Medications to discontinue per physician: MELOXICAM Date to take last dose: PER DR. EWING Please no make-up, nail frisian, hairspray, perfume, deodorant, or body powder the day of surgery. No jewelry (including any body piercings) or valuables the day of surgery, leave them at home. Please take a shower or bath the night before, or the morning of, surgery with an antibacterial soap. Wear comfortable, loose fitting clothing. - Jewelry must be removed prior to entering the operating room. Rings and piercings that are not removed may be cut off. - The hospital will not accept responsibility for valuables. - Please leave all valuables, including medications, at home the day of surgery. If you are going home after surgery, a licensed car driver must drive you home. - NO public transportation without another adult if you receive anesthesia. - We recommend that an adult stay with you for 24 hours following discharge. - We also recommend that you do not drive, make important decision, drink alcoholic beverages, or take any drugs that were not prescribed by your health care provider for at least 24 hours after your discharge time. Follow any additional instructions given to you from your surgeon. If you or anyone in your household have experienced Covid symptoms in the past week, please notify your surgeon or the nurse liaison at the phone number below for possible testing. Telephone instructions given to PT - BO and asked if any additional questions and then verbalized understanding. Patient advised to call surgeon office or pre surgery nurse liaison [phone] if any additional questions.
[2023-09-06] VITALS (11 sets, daily range): BP systolic 102–131; BP diastolic 68–78; PULSE 67–74; RESP 9–20; TEMP 36.2–36.3; O2SAT 99–100
--- NOTE | 2023-09-06 07:09 | WPDHPUPDATE1 ---
History and Physical Update Update Date/Time: 09/06/23 07:09 History and Physical has been reviewed, including an updated exam of the patient. There are NO changes in the patient's condition. Risks, benefits, and alternatives have been discussed and questions answered. Patient agrees to proceed with procedure.
[2023-09-06] MEDS: ACETAMINOPHEN 500 MG TABLET 1000 MG PO (10:58)
[2023-09-06] MEDS: CELECOXIB 200 MG CAPSULE PO (10:58)
[2023-09-06] MEDS: LACTATED RINGERS 1,000 ML 30 ML IV CONT ×2 (11:12→13:29)
--- NOTE | 2023-09-06 11:20 | WPDANESEPPF ---
Anes - Initial Pre Proc Eval Procedure: Operation Date: 09/06/23 12:00 Proposed Procedures p Left Knee Arthroscopy - Александр Rodas MD Date/Time: 09/06/23 11:20 Surgeon: Александр Rodas MD Pre Op Diagnosis: left knee medial meniscus tear Patient Data Age: 57 Gender: F Height: 1.66 m Weight: 87 kg Last Vital Signs Temp 97.2 F L 09/06/23 11:13 Pulse 73 09/06/23 11:13 Resp 16 09/06/23 11:13 BP 102/78 09/06/23 11:13 Pulse Ox 100 09/06/23 11:13 O2 Del Method Room Air 09/06/23 11:13 Allergies Allergy/AdvReac Type Severity Reaction Status Date / Time No Known Allergies Allergy Verified 09/06/23 10:35 Home Medications Medication Instructions Recorded Confirmed Type vilazodone 10 mg tablet 20 mg PO DAILY 12/23/21 09/06/23 History trazodone 50 mg tablet 100 mg PO QHS 01/26/23 09/06/23 History chlorhexidine gluconate 4 % 1 applic topical ONCE #237 mL 08/30/23 09/06/23 Rx topical liquid (Hibiclens) meloxicam 15 mg tablet 15 mg PO DAILY PRN Pain 08/30/23 09/06/23 History hydrocodone 5 mg-acetaminophen 325 1 tablet PO Q12H PRN pain #20 tabs 09/06/23 Rx mg tablet Patient hx anesthesia problems: post op nausea/vomiting Family hx anesthesia problems: none Results Review: All pre-operative results and documents have been reviewed as part of the pre-operative evaluation. 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 Sibling No problems noted. Other Family history of cardiovascular disease Family history of rheumatoid arthritis Social History Social History Social History: Caffeine-daily Smoking status: Never smoker Alcohol intake: current Drinks per week: 8 Alcohol use details: BEER Substance use: never Substance use type: does not use Lack of Transportation: No Lack of Food: Never True Current Housing: I Have Housing Concerned About Future Housing: No Difficulty Paying Gas/Electric Bills: No Difficulty Paying for Meds: No Currently Unemployed: No Education: Bachelor's Degree Difficulty w/ Childcare or Family Care: No Living arrangements: with family Occupation/Education: occupation 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 ) Neurological: alert and oriented and unresponsive Last oral intake: >/= 8 hours ASA classification: II Emergent: no Anesthetic plan: proceed Anesthesia type and monitoring: general LMA and standard monitoring Results Review: All pre-operative results and documents have been reviewed as part of the pre-operative evaluation. ETOH use, typically 6 beers/day. Informed Consent: The patient's anesthetic plan and its attendant risks and benefits were discussed with the patient/family/POA. Questions were solicited and answers provided to the satisfaction of the patient/family/POA.
[2023-09-06] MEDS: ceFAZolin 2 GM/D5W 50 ML 2 GM/50 ML BAG IVPB (12:08)
[2023-09-06] MEDS: BUPivacaine HCL 0.5% 10 ML AMP 30 ML INFILTRATE (12:45)
[2023-09-06] MEDS: methylPREDNISolone ACETATE 80 MG/ML VIAL IM (12:45)
--- NOTE | 2023-09-06 13:31 | P.OP_ITS ---
Procedure Note - Detailed Date of Procedure 09/06/23 Pre-op Diagnosis left knee medial meniscus tear Post-op Diagnosis Other (medial and patello femoral djd) Procedure Performed LEFT KNEE SCOPE Surgeon Александр Rodas MD Anesthesia General Description of Procedure PATIENT WAS TAKEN TO THE OR. LEFT LEG WAS PREPPED AND DRAPED STERILE. TROCARS WERE PLACED IN THE USUAL FASHION. CAMERA WAS INTRODUCED. THERE WAS CHONDROMALACIA TO THE PATELLA FEMORAL JOINT. THERE WERE AREAS OF FULL THICKNESS CARTILAGE LOSS IN THE TROCHLEA AND PATELLA. THERE WAS A LOT OF SYNOVITIS IN ALL COMPARTMENTS. THE MEDIAL COMPARTMENT SHOWED CHONDROMALACIA TO THE MEDIAL FEMORAL CONDYLE. THERE WAS AN AREA OF FULL THICKNESS CARTILAGE LOSS AROUND THE WEIGHT BEARING REGION OF THE MEDIAL FEMORAL CONDYLE. A SHAVER WAS USED TO PREFORM A CHONDROPLASTY. THERE WAS A COMPLEX MEDIAL MENISCUS TEAR IN THE POSTERIOR HORN OF THE MENISCUS.THIS WAS RESECTED WITH A BITER AND A SHAVER DOWN TO A SMOOTH BASE. THE ACL WAS INTACT. THE LATERAL MENISCUS WAS NOT TORN. THE LAT COMPARTMENT HAD MINIMAL CHONDROMALACIA. CHONDROPLASTY WAS PREFORMED. A SY NOVECTOMY WAS PREFORMED WELL. THE PATELLO FEMORAL JOINT UNDERWENT CHONDROPLASTY. THERE WAS GRADE 2 CHONDROMALACIA IN PART OF THE TROCHLEA AND PART OF THE PATELLA. SYNOVECTOMY WAS PREFORMED IN THE SUPERIOR MEDIAL COMPARTMENT. THE WOUNDS WERE APPROXIMATED WITH 4.0 NYLON. STERILE DRESSING WAS APPLIED. PATIENT WAS EXTUBATED. Estimated Blood Loss 5 Complications No immediate complications Condition Stable Disposition PACU
[2023-09-06] MEDS: fentaNYL CITRATE INJ (*CRX) 100 MCG/2 ML VIAL 25 MCG IV PUSH ×8 (13:41→15:45)
[2023-09-06] MEDS: fentaNYL CITRATE INJ (*CRX) 100 MCG/2 ML VIAL 50 MCG IV PUSH (13:46)
--- NOTE | 2023-09-06 13:46 | SUR.PHASEI ---
50 MCG FENTANYL GIVEN IVP BY CONNIE FOSTER CRNA.
[2023-09-06] MEDS: CALCIUM CARBONATE (TUMS) 500 MG (200 MG ELEMENTAL) PO ×2 (14:26→14:39)
[2023-09-06] MEDS: KETOROLAC 30 MG/ML VIAL (*BKC) IV PUSH (15:08)
[2023-09-06] MEDS: oxyCODONE HCL (*CRX) 5 MG TAB IR PO (15:09)
--- NOTE | 2023-09-06 15:52 | SUR.PHASEII ---
1551 - dr. yeung in room talking with pt and pt's family
== END 2023-09-06 16:20 | disposition home or self-care (01) ==
PROVIDERS: PCP Internal Medicine; Visit Provider Orthopaedic Surgery
PROC: (CPT 29870; principal; 2023-09-06 12:00)
DX: S83.232A Complex tear of medial meniscus, current injury, left knee, initial encounter (principal); M65.862 Other synovitis and tenosynovitis, left lower leg; M17.12 Unilateral primary osteoarthritis, left knee; M22.42 Chondromalacia patellae, left knee; W19.XXXA Unspecified fall, initial encounter; F41.8 Other specified anxiety disorders
CPT/HCPCS: 29881; 29876; 36415; 80053; 85025; A9270; J0690; J1010; J1100; J1885; J2250; J2704; J3010; J7120

== ENCOUNTER 2023-12-29 10:39 | Outpatient (CLI) | payer BC, SELFPAY ==
--- NOTE | 2023-12-29 11:04 | ECG_ITS ---
Test Date: 2023-12-29 11:09:05 Measurements Intervals Petal Rate: 61 P: 21 RI: 157 QRS: 13 QRSD: 102 T: 18 QT: 409 QTc: 413 Interpretive Statements SINUS RHYTHM NORMAL ELECTROCARDIOGRAM No previous ECG available for comparison Electronically Signed On 12-29-2023 15:03:20 CDT by Michael Everett M.D.
[2023-12-29 11:17] LABS: Basophils Absolute Auto 0.1 K/mm3 (0.0-0.1); Basophils Percent Auto 1.4 % (0.2-1.2); Eosinophils Absolute Auto 0.1 K/mm3 (0-0.3); Eosinophils Percent Auto 2.8 % (0-4.4); Hematocrit 39.4 % (37.0-47.0); Hemoglobin 12.8 g/dL (12.0-15.0); Immature Granulocyte Absolute 0.01 K/mm3 (0.00-0.031); Immature Granulocyte Percent A 0.2 % (0-0.5); Lymphocytes Absolute Auto 2.11 K/mm3 (0.9-3.2); Lymphocytes Percent Auto 41.5 % (18.3-44.2); Mean Corpuscular HGB Conc 32.5 g/dl (32-36); Mean Corpuscular Hemoglobin 32.2 pg (26-34); Mean Corpuscular Volume 99.2 fl (80-100); Mean Platelet Volume 9.9 fl (7.4-10.4); Monocytes Absolute Auto 0.5 K/mm3 (0.1-0.6); Monocytes Percent Auto 9.2 % (2.6-8.5); Neutrophils Absolute Auto 2.3 K/mm3 (1.3-6.7); Neutrophils Percent Auto 44.9 % (45.5-73.1); Platelet Count Result 306 k/mm3 (150-375); Red Blood Count 3.97 M/mm3 (4.2-5.4); Red Cell Distribution Width 13.1 % (11.5-14.5); White Blood Count 5.1 K/mm3 (4.5-10.0)
[2023-12-29 11:35] LABS: Anion Gap 9 mmol/L (4-12); Blood Urea Nitrogen 18 mg/dL (7-17); Calcium 9.3 mg/dL (8.4-10.2); Carbon Dioxide 27 mmol/L (22-30); Chloride 102 mmol/L (98-107); Estimated Glomerular Filt Rate > 60; Glucose 100 mg/dL (65-110); Potassium 4.5 mmol/L (3.4-5.0); Sodium 138 mmol/L (137-145)
[2023-12-29 11:43] LABS: Add Urine Microscopic? NO; Appearance Urine Clear (Clear); Bilirubin Urine Negative (Negative); Blood Urine Negative (Negative); Color Urine Yellow (Yellow); Glucose Urine UA Negative (Negative); Ketones Urine Negative (Negative); Leukocyte Esterase Ur Negative LEU/UL (Negative); Nitrate Urine Negative (Negative); Protein Urine Negative (Negative); Specific Grav Ur 1.023 (1.001-1.035); Urobilinogen Urine 0.2 mg/dL (<2.0); pH Urine 5.5 (5.0-9.0)
== END 2023-12-29 10:40 | disposition home or self-care (01) ==
LOC: ANHLAB 10:42
PROVIDERS: PCP Internal Medicine; Visit Provider Orthopaedic Surgery
DX: M17.12 Unilateral primary osteoarthritis, left knee (principal); E66.9 Obesity, unspecified; Z01.818 Encounter for other preprocedural examination
CPT/HCPCS: 36415; 80048; 81003; 85025; 93005

== ENCOUNTER 2024-02-29 08:04 | Outpatient (CLI) | payer BC, SELFPAY ==
[2024-02-29 09:07] LABS: Basophils Absolute Auto 0.1 K/mm3 (0.0-0.1); Basophils Percent Auto 1.1 % (0.2-1.2); Eosinophils Absolute Auto 0.2 K/mm3 (0-0.3); Hematocrit 41.4 % (37.0-47.0); Hemoglobin 13.3 g/dL (12.0-15.0); Lymphocytes Absolute Auto 1.81 K/mm3 (0.9-3.2); Lymphocytes Percent Auto 34.4 % (18.3-44.2); Mean Corpuscular HGB Conc 32.1 g/dl (32-36); Mean Corpuscular Hemoglobin 31.7 pg (26-34); Mean Corpuscular Volume 98.8 fl (80-100); Mean Platelet Volume 9.9 fl (7.4-10.4); Monocytes Absolute Auto 0.4 K/mm3 (0.1-0.6); Monocytes Percent Auto 8.4 % (2.6-8.5); Neutrophils Absolute Auto 2.7 K/mm3 (1.3-6.7); Neutrophils Percent Auto 52.1 % (45.5-73.1); Platelet Count Result 285 k/mm3 (150-375); Red Blood Count 4.19 M/mm3 (4.2-5.4); Red Cell Distribution Width 12.8 % (11.5-14.5); White Blood Count 5.3 K/mm3 (4.5-10.0)
[2024-02-29 09:08] LABS: Add Urine Microscopic? NO; Appearance Urine Clear (Clear); Bilirubin Urine Negative (Negative); Blood Urine Negative (Negative); Color Urine Yellow (Yellow); Glucose Urine UA Negative (Negative); Ketones Urine Negative (Negative); Leukocyte Esterase Ur Negative LEU/UL (Negative); Nitrate Urine Negative (Negative); Protein Urine Negative (Negative); Specific Grav Ur 1.016 (1.001-1.035); Urobilinogen Urine 0.2 mg/dL (<2.0)
[2024-02-29 09:18] LABS: INR 0.9; Prothrombin Time 13.1 Seconds (11.1-14.7)
[2024-02-29 09:19] LABS: Partial Thromboplastin Time 25.1 Seconds (22.3-36.8)
[2024-02-29 09:21] LABS: Albumin Level 4.5 g/dL (3.5-5.1); Anion Gap 5 mmol/L (4-12); Blood Urea Nitrogen 13 mg/dL (7-17); Calcium 9.3 mg/dL (8.4-10.2); Carbon Dioxide 31 mmol/L (22-30); Chloride 101 mmol/L (98-107); Estimated Glomerular Filt Rate > 60; Glucose 105 mg/dL (65-110); Potassium 4.2 mmol/L (3.4-5.0); Sodium 137 mmol/L (137-145)
[2024-02-29 09:28] LABS: Urine Cotinine NEGATIVE
[2024-02-29 10:09] LABS: Hemoglobin A1C 5.3 % (<5.7)
[2024-02-29 10:51] LABS: MRSA (PCR) NOT DETECTED (NOT DETECTE)
== END 2024-02-29 08:05 | disposition home or self-care (01) ==
LOC: ANHSURGERY 08:07
PROVIDERS: PCP Internal Medicine; Visit Provider Orthopaedic Surgery
DX: M17.12 Unilateral primary osteoarthritis, left knee (principal); Z01.818 Encounter for other preprocedural examination
CPT/HCPCS: 80048; 80307; 81003; 82040; 83036; 85025; 85610; 85730; 86850; 86900; 86901; 87641

== ENCOUNTER 2024-03-13 16:19 | Observation (INO) | payer BC, SELFPAY ==
[2024-02-29 08:10] VITALS: BMI 31.1
--- NOTE | 2024-02-29 08:33 | PC.NURSE ---
Report to the Outpatient Waiting Room, entrance under the green pavilion located off [facility], at time 10 AM on date 03/12/24 . Planned Procedure Time: __1200 NOON .? Time changes happen often and if your time is changed the preop area will call you the afternoon before. - You and your visitor will be asked to self-screen and do not enter if you have any COVID symptoms. Please call surgeon if you need to reschedule. - A mask is optional within the hospital at this time. Patients may have clear liquids (water, carbonated beverages, clear teas, apple juice) until 3 hours prior to surgery( 9AM) with a maximum of 20 ounces. - No food from midnight until time of surgery and no smoking - Infants may have breast milk until 4 hours before surgery, infant formula 6 hours prior to surgery. - Children will be allowed to drink immediately following surgery.? If applicable, please bring a bottle or sippy cup to assist with drinking. Juice, water, soda, and popsicles are readily available.? For infants on formula, please bring formula the day of surgery.? Pacifiers are allowed. Take only the following medications with a SIP of water on the morning of surgery: ___NONE DO NOT STOP ANY OF YOUR OTHER PRESCRIPTION MEDICATIONS PRIOR TO SURGERY EXCEPT THE FOLLOWING Medications to discontinue per physician ____HOLD MELOXICAM PER DR EWING Please no make-up, nail yakut, hairspray, perfume, deodorant, or body powder the day of surgery.? No jewelry (including any body piercings) or valuables the day of surgery, leave them at home.? Please take a shower or bath the night before, or the morning of, surgery with an antibacterial soap.? Wear comfortable, loose fitting clothing.? Children are encouraged to wear pajamas. - Jewelry must be removed prior to entering the operating room.? Rings and piercings that are not removed may be cut off. - The hospital will not accept responsibility for valuables.? - Please leave all valuables, including medications, at home the day of surgery. If you are going home after surgery, a licensed taxi driver must drive you home.? - NO public transportation without another adult if you receive anesthesia. - We recommend that an adult stay with you for 24 hours following discharge. - We also recommend that you do not drive, make important decision, drink alcoholic beverages, or take any drugs that were not prescribed by your health care provider for at least 24 hours after your discharge time Follow any additional instructions given to you from your surgeon. VERBAL AND WRITTEN instructions given to __PATIENT and asked if any additional questions and then verbalized understanding. Patient advised to call surgeon office or pre surgery nurse liaison [phone] if any additional questions.
[2024-02-29 08:44] VITALS: BP 120/89; PULSE 66; RESP 18; TEMP 36.9; O2SAT 100
[2024-03-12] VITALS (14 sets, daily range): BP systolic 110–168; BP diastolic 65–98; PULSE 70–90; RESP 12–18; TEMP 36.4–36.8; O2SAT 97–100; BMI 31.0
--- NOTE | 2024-03-12 08:49 | WPDHPUPDATE1 ---
History and Physical Update Update Date/Time: 03/12/24 08:49 History and Physical has been reviewed, including an updated exam of the patient. There are NO changes in the patient's condition. Risks, benefits, and alternatives have been discussed and questions answered. Patient agrees to proceed with procedure.
[2024-03-12] MEDS: ACETAMINOPHEN 500 MG TABLET 1000 MG PO (11:01)
[2024-03-12] MEDS: TRANEXAMIC ACID 1,000MG/ISO100 1,000 MG/100 ML BAG 200 MG IVPB (11:55)
[2024-03-12] MEDS: ceFAZolin 2 GM/D5W 50 ML 2 GM/50 ML BAG IVPB ×2 (13:31→21:53)
--- NOTE | 2024-03-12 13:32 | WPDANESPNB ---
Anes - Peripheral Nerve Block Date/Time: 03/12/24 13:32 I have discussed with the patient/family/POA the placement of a peripheral nerve block for post-operative pain management, including associated risks, benefits, complications, and side effects. Alternative methods of post-operative analgesia were detailed. Questions were solicited and answers provided to the satisfaction of the patient/family/POA. Time-Out: A pre-procedural Time-Out was completed immediately before starting the procedure and confirmed: Patient Identification, Site, Procedure, Patient Position and the Availability of Requisite Equipment. Clinical Indications: Acute post-operative pain management requested by the operative surgeon. Nerve Block Insertion Note Anes-nerve block: adductor canal left Patient position: supine Skin prep: chlorhexidine Needle: 22 gauge, stimulating, insulated echogenic needle. Needle length: 80 mm Technique: ultrasound Injectate: other (Bupiv 0.5%, 15 mls. ) Observations: tolerated well Complications: none Procedure start time:: 1323 Procedure end time:: 1330
--- NOTE | 2024-03-12 13:33 | WPDANESEPPF ---
Anes - Initial Pre Proc Eval Procedure: Operation Date: 03/12/24 12:00 Proposed Procedures p Left Total Knee Arthroplasty - Александр Rodas MD Date/Time: 03/12/24 13:33 Surgeon: Александр Rodas MD Pre Op Diagnosis: Lt Knee DJD Patient Data Age: 58 Gender: F Height: 1.66 m Weight: 86 kg Last Vital Signs Temp 97.5 F L 03/12/24 10:59 Pulse 70 03/12/24 10:59 Resp 16 03/12/24 10:59 BP 119/73 03/12/24 10:59 Pulse Ox 98 03/12/24 10:59 O2 Del Method Room Air 03/12/24 10:59 Allergies Allergy/AdvReac Type Severity Reaction Status Date / Time No Known Allergies Allergy Verified 03/12/24 10:30 Home Medications Medication Instructions Recorded Confirmed Type trazodone 50 mg tablet 100 mg PO QHS 01/26/23 03/04/24 History meloxicam 15 mg tablet 15 mg PO PRN PRN Pain 08/30/23 03/04/24 History chlorhexidine gluconate 4 % 1 applic topical ONCE #237 mL 02/28/24 03/04/24 Rx topical liquid (Hibiclens) vilazodone 40 mg tablet 40 mg PO QPM 02/29/24 03/04/24 History Patient hx anesthesia problems: post op nausea/vomiting Family hx anesthesia problems: none Results Review: All pre-operative results and documents have been reviewed as part of the pre-operative evaluation. 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 Sibling No problems noted. Other Family history of cardiovascular disease Family history of rheumatoid arthritis Social History Social History Social History: Caffeine-daily Smoking status: Never smoker Additional smoking assessment comments: DENIES ANY FORM OF TOBACCO USE Alcohol intake: current Drinks per week: 28 Alcohol use details: BEER/WINE Substance use: never Substance use type: does not use Lack of Transportation: No Lack of Food: Never True Current Housing: I Have Housing Concerned About Future Housing: No Difficulty Paying Gas/Electric Bills: No Difficulty Paying for Meds: No Currently Unemployed: No Education: Bachelor's Degree Difficulty w/ Childcare or Family Care: No Living arrangements: with family Occupation/Education: occupation Additional occupation/education comments: executive- [employer] Gender identity (if verbalized by the patient): Female Spiritual care concerns: No Anes - Eval Final PreProcedure Day of Procedure 03/12/24 13:33 Patient weight: obese Heart: regular rate and rhythm Lungs: clear to auscultation Airway: Mallampati scale and special considerations (Upper and lower crowns. ) Neurological: alert and oriented Last oral intake: >/= 8 hours ASA classification: III Emergent: no Anesthetic plan: proceed Anesthesia type and monitoring: general ETT and standard monitoring Results Review: All pre-operative results and documents have been reviewed as part of the pre-operative evaluation. MATTHEW, never started CPAP, anxiety, ETOH use (6-7 beers/day plus wine). Informed Consent: The patient's anesthetic plan and its attendant risks and benefits were discussed with the patient/family/POA. Questions were solicited and answers provided to the satisfaction of the patient/family/POA.
[2024-03-12] MEDS: TRANEXAMIC ACID 1,000 MG/10 ML AMPUL 1000 MG IV PUSH (14:15)
[2024-03-12] MEDS: SODIUM CHLORIDE 0.9% IV 37.7 ML, MORPHINE SULFATE INJ (*CRX) 2 MG, ROPivacaine HCL 1% 2... INFILTRATE (14:24)
[2024-03-12] MEDS: LACTATED RINGERS 1,000 ML 30 ML IV CONT ×2 (16:06→16:52)
--- NOTE | 2024-03-12 16:11 | P.OP_ITS ---
Procedure Note - Detailed Date of Procedure 03/12/24 Pre-op Diagnosis Lt Knee DJD Post-op Diagnosis Same Procedure Performed L TKA Surgeon Александр Rodas MD Anesthesia General Description of Procedure THE LEFT KNEE WAS PREPPED AND DRAPED IN THE STERILE FASHION. A MIDLINE SKIN INCISION WAS MADE. A MEDIAL PARAPATELLAR ARTHROTOMY WAS MADE. THE PATELLA WAS EVERTED. THERE WAS TRICOMPARTMENT DJD. THERE WAS MINIMAL PATELLA DJD. AN INTRAMEDULLARY ARETHA WAS PLACED IN THE FEMUR. A DISTAL FEMORAL CUT WAS MADE IN 5 DEGREES OF VALGUS REMOVING APPROXIMATELY 9 MM OF BONE FROM THE DISTAL FEMUR. THE FEMUR WAS SIZED TO 4. A 4 FEMORAL CUTTING BLOCK WAS PLACED IN 3 DEGREES OF EXTERNAL ROTATION AND IN ALIGNMENT WITH ALONDRA'S LINE AND THE TRANSEPICONDYLAR AXIS. ANTERIOR POSTERIOR AND CHAMFER CUTS WERE MADE. THE CUTS WERE EXCELLENT. NEXT AN INTRAMEDULLARY CUTTING GUIDE WAS PLACED IN THE TIBIA. A TRANS TIBIAL CUT WAS MADE ALONG THE LONG AXIS OF THE TIBIA. APPROXIMATELY 8 MM OF BONE WAS REMOVED FROM THE HIGH SIDE OF THE TIBIA. THE TIBIA WAS THEN PLANED TO A SMOOTH SURFACE. POSTERIOR FEMORAL OSTEOPHYTES WERE REMOVED FROM THE FEMORAL CONDYLES. A 4 TIBIAL TRIAL WAS PLACED IN ALIGNMENT WITH THE 1/3 MEDIAL ASPECT OF THE TIBIAL TUBERCLE. THEN A 4 FEMORAL TRIAL COMPONENT WAS PLACED. BOTH HAD EXCELLENT FITS. EVENTUALLY A 10 CS POLYETHYLENE TRIAL COMPONENT WAS PLACED. THE KNEE WAS TAKEN THROUGH A RANGE OF MOTION. THE KNEE CAME OUT TO FULL EXTENSION. THERE WAS NO ABNORMAL TILT TO THE PATELLA. THERE WAS GOOD A/P AND VARUS/VALGUS STABILITY. THERE WAS NO EXCESSIVE ROLL BACK WITH FLEXION. THE TRIAL COMPONENTS WERE REMOVED. THEN A DEL 4 FEMORAL COMPONENT AND 4 TIBIAL COMPONENT WITH A 10 CS POLYETHYLENE COMPONENT WERE PRESS FIT INTO PLACE. THE KNEE WAS TAKEN THROUGH A ROM AGAIN AND FOUND TO BE STABLE WITH NO PATELLA TILT NO EXCESSIVE ROLL BACK WITH FLEXION AND GOOD STABILITY WITH COMPLETE AND FULL EXTENSION. THE KNEE WAS IRRIGATED WITH STERILE BETADINE AND WATER FOR ABOUT 3 MINUTES. THE BLEEDERS WERE CAUTERIZED. THE ARTHROTOMY WAS REPAIRED WITH NUMBER 1 VICRYL AND QUIL. THE SUB CUTANEOUS LAYER WITH 2-0 VICRYL AND THE SKIN WITH 3- 0 QUIL AND DERMABOND. THE WOUND WAS WASHED AND A STERILE DRESSING WAS APPLIED. PATIENT WAS EXTUBATED. Estimated Blood Loss -150.0 Pathology None sent Complications No immediate complications Condition Stable Disposition PACU
[2024-03-12] MEDS: KETOROLAC 30 MG/ML VIAL (*BKC) IV PUSH (16:20)
[2024-03-12] MEDS: fentaNYL CITRATE INJ (*CRX) 100 MCG/2 ML VIAL 25 MCG IV PUSH ×6 (16:24→16:54)
[2024-03-12] MEDS: diazePAM INJ (*CRX) 10 MG/2 ML SYRINGE 5 MG IV PUSH (16:42)
--- NOTE | 2024-03-12 17:36 | ADMGEN ---
This patient, Leslee Olivares, was admitted to Medical Room 247-. Patient/family oriented to hospital policies and general routines including ID bracelet, bed and alarms, visiting hours, pain management, procedures, bathroom and other care routines, personal items, smoking policy, room service/diet, and visiting hours. Information on how to activate the Rapid Response Team has been discussed. Patient/Family are encouraged to report perceived risks to care and to ask questions if they do not understand what they are told or what they should do.
[2024-03-12] MEDS: SENNA/DOCUSATE SODIUM TABLET 2 TAB PO (17:42)
[2024-03-12] MEDS: oxyCODONE/ACETAMINOPHEN (*CRX) 10-325 MG TABLET 1 TAB PO (17:42)
[2024-03-12] MEDS: SODIUM CHLORIDE 0.9% IV 1,000 ML 125 ML IV CONT (17:43)
[2024-03-12] MEDS: KETOROLAC 15 MG/ML VIAL (*BKC) IV PUSH (17:43)
[2024-03-12] MEDS: HYDROmorphone HCL INJ (*CRX) 1 MG/ML SYR IV PUSH ×2 (18:36→20:05)
[2024-03-12] MEDS: traZODone HCL 50 MG TABLET 100 MG PO (20:20)
[2024-03-12] MEDS: FAMOTIDINE 20 MG TABLET PO (20:20)
[2024-03-12] MEDS: RIVAROXABAN 10 MG TABLET PO (21:53)
[2024-03-12] MEDS: diphenhydrAMINE HCl INJ 50 MG/ML VIAL 25 MG IV PUSH (23:41)
[2024-03-12] MEDS: ONDANSETRON INJ 4 MG/2 ML VIAL IV PUSH (23:47)
[2024-03-13] VITALS (7 sets, daily range): BP systolic 91–109; BP diastolic 52–68; PULSE 71–88; RESP 12–20; TEMP 36–37.3; O2SAT 94–99
--- NOTE | ~2024-03-13 | US_ITS ---
LEFT LOWER EXTREMITY VENOUS ULTRASOUND Ordering provider: Александр Rodas MD History: . rule out bood clot . Comparison: None. FINDINGS: --COMMON FEMORAL: Patent and free of thrombus. Normal compressibility, phasic flow and augmentation. --PROXIMAL SUPERFICIAL FEMORAL: Patent and free of thrombus. Normal compressibility, phasic flow and augmentation. --DISTAL SUPERFICIAL FEMORAL: Patent and free of thrombus. Normal compressibility, phasic flow and au gmentation. --POPLITEAL: Patent and free of thrombus. Normal compressibility, phasic flow and augmentation. --POSTERIOR TIBIAL: Patent and free of thrombus. Normal compressibility, phasic flow and augmentation . IMPRESSION: Negative left lower extremity venous US. No deep vein thrombosis. Reviewed, dictated and finalized at location A.
--- NOTE | ~2024-03-13 | XR_ITS ---
EXAMINATION: [id number] DATE: 03/12/2024 16:52 CDT INDICATION: Left total knee arthroplasty TECHNIQUE: 2 views left knee FINDINGS: There is a left total knee arthroplasty in expected position. Subcutaneous gas with fluid and air in the joint and overlying skin destini are consistent with recent surgery. No evidence of pe riprosthetic fracture. IMPRESSION: 1. Recent left total knee arthroplasty. Reviewed, dictated and finalized at location B.
[2024-03-13] MEDS: KETOROLAC 15 MG/ML VIAL (*BKC) IV PUSH ×4 (00:05→17:51)
--- NOTE | 2024-03-13 00:22 | PC.NURSE ---
Patient up to bathroom with 2 stand-by assist, gait belt and walker. Sat in chair at 2330 for 30 minutes, tolerated weight bearing as tolerated with left total knee replacement. Back to bed 0005, bed in lowest position, call light within reach, and ice therapy left knee and pillow below knee to support leg..
[2024-03-13] MEDS: HYDROmorphone HCL INJ (*CRX) 1 MG/ML SYR IV PUSH ×2 (01:29→16:04)
[2024-03-13 05:32] LABS: Basophils Percent Auto 0.4 % (0.2-1.2); Eosinophils Percent Auto 0.1 % (0-4.4); Hematocrit 30.8 % (37.0-47.0); Hemoglobin 9.5 g/dL (12.0-15.0); Immature Granulocyte Absolute 0.03 K/mm3 (0.00-0.031); Immature Granulocyte Percent A 0.4 % (0-0.5); Lymphocytes Absolute Auto 0.97 K/mm3 (0.9-3.2); Lymphocytes Percent Auto 13.5 % (18.3-44.2); Mean Corpuscular HGB Conc 30.8 g/dl (32-36); Mean Corpuscular Hemoglobin 32.3 pg (26-34); Mean Corpuscular Volume 104.8 fl (80-100); Mean Platelet Volume 10.2 fl (7.4-10.4); Monocytes Absolute Auto 0.6 K/mm3 (0.1-0.6); Monocytes Percent Auto 8.2 % (2.6-8.5); Neutrophils Absolute Auto 5.6 K/mm3 (1.3-6.7); Neutrophils Percent Auto 77.4 % (45.5-73.1); Platelet Count Result 223 k/mm3 (150-375); Red Blood Count 2.94 M/mm3 (4.2-5.4); Red Cell Distribution Width 12.5 % (11.5-14.5); White Blood Count 7.2 K/mm3 (4.5-10.0)
[2024-03-13 05:45] LABS: Anion Gap 3 mmol/L (4-12); Blood Urea Nitrogen 9 mg/dL (7-17); Calcium 8.2 mg/dL (8.4-10.2); Carbon Dioxide 30 mmol/L (22-30); Chloride 101 mmol/L (98-107); Estimated CRCL calculation 115 ml/min; Estimated Glomerular Filt Rate > 60; Glucose 137 mg/dL (65-110); Potassium 3.7 mmol/L (3.4-5.0); Sodium 134 mmol/L (137-145)
[2024-03-13] MEDS: ceFAZolin 2 GM/D5W 50 ML 2 GM/50 ML BAG IVPB ×2 (05:52→13:43)
[2024-03-13] MEDS: diphenhydrAMINE HCl INJ 50 MG/ML VIAL 25 MG IV PUSH (06:10)
[2024-03-13] MEDS: SENNA/DOCUSATE SODIUM TABLET 2 TAB PO ×2 (07:41→17:51)
[2024-03-13] MEDS: FAMOTIDINE 20 MG TABLET PO ×2 (07:41→20:00)
[2024-03-13] MEDS: polyethylene glycoL 3350 17 GM POWD.PACK PO (07:42)
[2024-03-13] MEDS: oxyCODONE/ACETAMINOPHEN (*CRX) 10-325 MG TABLET 1 TAB PO ×3 (07:42→23:55)
[2024-03-13] MEDS: ONDANSETRON INJ 4 MG/2 ML VIAL IV PUSH (08:21)
[2024-03-13] MEDS: diazePAM (*CRX) 5 MG TABLET PO (09:42)
[2024-03-13] MEDS: HYDROmorphone HCL INJ (*CRX) 1 MG/ML SYR 0.5 MG IV PUSH (11:55)
--- NOTE | 2024-03-13 12:24 | PM.PNORT ---
Progress Note: A&P Assessment and Plan (1) Left knee DJD: Code(s): M17.12 - Unilateral primary osteoarthritis, left knee Status: Acute Plan POD 1 WITH PAIN CONTROL ISSUES. WE WILL TRY AND GET HER PAIN BETTER CONTROLLED AND SEE IF SHE CAN BE DISCHARGED TODAY AFTER PT. IF NOT SHE WILL NEED TO STAY ANOTHER DAY. SHE IS STILL REQUIRING DILAUDID FOR PAIN CONTROL. Subjective Subjective Date/Time Seen: 03/13/24 12:24 Interval history: POD 1 DOING WELL WITH PT. SHE IS HAVING PAIN CONTROL ISSUES. DOES NOT APPEAR THAT HER FEMORAL NERVE BLOCK IS WORKING, NO CALF PAIN Exam Extrem: Other: VSS AFEBRILE DRESSING DRY NV INTACT NEG HOMANS SIGN, CALF AND THIGH SOFT NON TENDER Objective Data Vital Signs Vital Signs: Vital Signs - 24 hr 03/12/24 16:06 03/12/24 16:20 03/12/24 16:35 Temperature 36.6 C Pulse Rate 90 85 88 Respiratory Rate 12 15 17 Blood Pressure 113/90 126/82 122/98 H Pulse Oximetry 100 100 100 Oxygen Delivery Simple Face Mask Simple Face Mask Simple Face Mask Oxygen Flow Rate 8 8 8 03/12/24 16:50 03/12/24 17:05 03/12/24 17:13 Temperature 36.4 C L Pulse Rate 80 72 90 Respiratory Rate 14 12 16 Blood Pressure 123/79 118/71 125/76 Pulse Oximetry 99 99 100 Oxygen Delivery Room Air Nasal Cannula Nasal Cannula Oxygen Flow Rate 1 1 03/12/24 17:30 03/12/24 17:45 03/12/24 18:15 Temperature 36.5 C 36.6 C 36.6 C Pulse Rate 82 73 78 Respiratory Rate 18 16 18 Blood Pressure 137/83 168/91 H 138/80 Pulse Oximetry 100 100 100 Oxygen Delivery Oxygen Flow Rate 03/12/24 17:35 03/12/24 19:01 03/12/24 20:15 Temperature 36.8 C Pulse Rate 73 Respiratory Rate 16 Blood Pressure 110/65 Pulse Oximetry 100 100 100 Oxygen Delivery Nasal Cannula Nasal Cannula Oxygen Flow Rate 1 1 03/12/24 23:01 03/13/24 03:01 03/13/24 06:49 Temperature 36.8 C 36.4 C Pulse Rate 70 80 Respiratory Rate 16 20 Blood Pressure 111/70 101/60 Pulse Oximetry 97 99 99 Oxygen Delivery Room Air Oxygen Flow Rate 03/13/24 07:48 03/13/24 07:01 03/13/24 07:40 Temperature 36.0 C L Pulse Rate 71 Respiratory Rate 12 Blood Pressure 96/57 L Pulse Oximetry 98 Oxygen Delivery Room Air Room Air Oxygen Flow Rate 03/13/24 11:01 Temperature 36.1 C L Pulse Rate 80 Respiratory Rate 16 Blood Pressure 100/52 L Pulse Oximetry 98 Oxygen Delivery Oxygen Flow Rate Intake/Output Intake/Output: Intake & Output 03/10/24 03/11/24 03/12/24 03/13/24 23:59 23:59 23:59 23:59 Intake Total 520 290 Output Total 400 500 Balance 120 -210 Meds/Results Medications: Active Medications Generic Name Dose Route Start Last Admin Trade Name Freq PRN Reason Stop Dose Admin Acetaminophen 500 mg 03/12/24 17:16 Acetaminophen 500 Mg Tablet PO Q6H PRN Pain Rated 1-3 Diazepam 5 mg 03/12/24 17:16 03/13/24 09:42 Diazepam (*Crx) 5 Mg Tablet PO 5 mg Q8H PRN Administration Spasms Diphenhydramine HCl 25 mg 03/12/24 17:16 03/13/24 06:10 Diphenhydramine Hcl Inj 50 Mg/Ml Vial IV PUSH 25 mg Q6H PRN Administration Itching Famotidine 20 mg 03/12/24 21:00 03/13/24 07:41 Famotidine 20 Mg Tablet PO 20 mg Q12HR ELOISA Administration Hydromorphone HCl 1 mg 03/12/24 17:16 03/13/24 01:29 Hydromorphone Hcl Inj (*Crx) 1 Mg/Ml Syr IV PUSH 1 mg Q2H PRN Administration Breakthrough Pain Rated 7-10 or NPO Hydromorphone HCl 0.5 mg 03/12/24 17:16 03/13/24 11:55 Hydromorphone Hcl Inj (*Crx) 1 Mg/Ml Syr IV PUSH 0.5 mg Q2H PRN Administration Breakthrough Pain Rated 4-6 or NPO Hydroxyzine Pamoate 100 mg 03/13/24 06:54 Hydroxyzine Pamoate 25 Mg Capsule PO Q6HR PRN Itching Cefazolin Sodium 2 gm in 50 mls @ 100 mls/hr 03/12/24 22:00 03/13/24 06:22 Ancef 2 Gm/D5w 50 Ml IVPB 03/13/24 14:29 Infused Q8H [facility] Infusion Ibuprofen 800 mg in 200 mls @ 400 mls/hr 03/14/24 00:00 Caldolor 800 Mg/200 Ml IVPB Q6H PRN Breakthrough Pain Rated 1-3 or NPO Ketorolac Tromethamine 15 mg 03/12/24 18:00 03/13/24 11:52 Ketorolac 15 Mg/Ml Vial (*Bkc) IV PUSH 03/13/24 18:01 15 mg Q6HR ELOISA Administration Miscellaneous Information 1 each 03/13/24 00:01 Med Rec Order Clarification XX 04/12/24 00:00 CLARIFY [facility] Miscellaneous Information 1 each 03/13/24 00:01 Med Rec Order Clarification XX 04/12/24 00:00 CLARIFY [facility] Naloxone HCl 0.1 mg 03/12/24 17:16 Naloxone Hcl 0.4 Mg/Ml Vial IV PUSH Q2M PRN Opiate Reversal Non-Formulary Medication 15 mg 03/12/24 17:16 Meloxicam PO PRN PRN Pain Non-Formulary Medication 40 mg 03/12/24 18:00 Vilazodone PO 04/11/24 17:59 QPM [facility] Ondansetron HCl 4 mg 03/12/24 17:16 03/13/24 08:21 Ondansetron Inj 4 Mg/2 Ml Vial IV PUSH 4 mg Q4H PRN Administration Nausea And Vomiting Oxycodone/Acetaminophen 1 tablet 03/12/24 17:16 Oxycodone/Acetaminophen (*Crx) 5-325 Mg Tablet PO Q4H PRN Pain Rated 4-6 Oxycodone/Acetaminophen 1 tab 03/12/24 17:16 03/13/24 07:42 Oxycodone/Acetaminophen (*Crx) 10-325 Mg Tablet PO 1 tab Q6H PRN Administration Pain Rated 7-10 Polyethylene Glycol 17 gm 03/13/24 09:00 03/13/24 07:42 Polyethylene Glycol 3350 17 Gm Powd.Pack PO 17 gm QAM [facility] Administration Rivaroxaban 10 mg 03/12/24 22:00 03/12/24 21:53 Rivaroxaban 10 Mg Tablet PO 03/23/24 17:01 10 mg DAILY@17 [facility] Administration Senna/Docusate Sodium 2 tab 03/12/24 17:16 03/13/24 07:41 Senna/Docusate Sodium Tablet PO 2 tab BID ELOISA Administration Trazodone HCl 100 mg 03/12/24 21:00 03/12/24 20:20 Trazodone Hcl 50 Mg Tablet PO 100 mg QHS ELOISA Administration Radiology Results: ITS Impressions Knee X-Ray 03/12/24 16:52 IMPRESSION: 1. Recent left total knee arthroplasty. Labs Labs: Laboratory Results - last 24 hr 03/13/24 04:59 WBC 7.2 RBC 2.94 L Hgb 9.5 L D Hct 30.8 L MCV 104.8 H MCH 32.3 MCHC 30.8 L RDW 12.5 Plt Count 223 MPV 10.2 Immature Gran % (Auto) 0.4 Neut % (Auto) 77.4 H Lymph % (Auto) 13.5 L Swain % (Auto) 8.2 Eos % (Auto) 0.1 Baso % (Auto) 0.4 Lymph # (Auto) 0.97 Swain # (Auto) 0.6 Eos # (Auto) 0.0 Baso # (Auto) 0.0 Abs Immat Gran (auto) 0.03 Absolute Neuts (auto) 5.6 Absolute Nucleated RBC 0.000 Nucleated RBC % 0.0 Sodium 134 L Potassium 3.7 Chloride 101 Carbon Dioxide 30 Anion Gap 3 L BUN 9 Creatinine 0.50 L Estim Creat Clear Calc 115 Estimated GFR > 60 Glucose 137 H Calcium 8.2 L
[2024-03-13] MEDS: hydrOXYzine pamoate 25 MG CAPSULE 100 MG PO (12:47)
--- NOTE | 2024-03-13 14:15 | WPDANESPN ---
Anes - Prog Note Post-Op Date/Time: 03/13/24 14:15 Cardiovascular status: normal Respiratory status: normal Airway patency: baseline Mental status: baseline Post-Op hydration status: normal Vital Signs: Last Vital Signs Temp 36.1 C L 03/13/24 11:01 Pulse 80 03/13/24 11:01 Resp 16 03/13/24 11:01 BP 100/52 L 03/13/24 11:01 Pulse Ox 98 03/13/24 11:01 O2 Del Method Room Air 03/13/24 07:48 O2 Flow Rate 1 03/12/24 20:15 Pain Score (VAS): Patient asleep, no nonverbals of pain present at this time. I/O: Intake & Output 03/12/24 03/13/24 03/13/24 23:59 07:59 15:59 Intake Total 470 50 480 Output Total 400 500 Balance 70 -450 480 Laboratory Tests 03/13/24 04:59 03/13/24 04:59 03/13/24 04:59 WBC 7.2 RBC 2.94 L Hgb 9.5 L D Hct 30.8 L MCV 104.8 H MCH 32.3 MCHC 30.8 L RDW 12.5 Plt Count 223 MPV 10.2 Immature Gran % (Auto) 0.4 Neut % (Auto) 77.4 H Lymph % (Auto) 13.5 L Mcdowell % (Auto) 8.2 Eos % (Auto) 0.1 Baso % (Auto) 0.4 Lymph # (Auto) 0.97 Mcdowell # (Auto) 0.6 Eos # (Auto) 0.0 Baso # (Auto) 0.0 Abs Immat Gran (auto) 0.03 Absolute Neuts (auto) 5.6 Absolute Nucleated RBC 0.000 Nucleated RBC % 0.0 Sodium 134 L Potassium 3.7 Chloride 101 Carbon Dioxide 30 Anion Gap 3 L BUN 9 Creatinine 0.50 L Estim Creat Clear Calc 115 Estimated GFR > 60 Glucose 137 H Calcium 8.2 L Post-procedural complaints: none Patient Feedback: Patient satisfied with anesthetic care.
[2024-03-13] MEDS: RIVAROXABAN 10 MG TABLET PO (17:51)
--- NOTE | 2024-03-13 19:56 | PHAR ---
Addendum entered by Adonis Chawla.Ph. 03/14/24 21:06: VILAZODONE 20MG Color:?[place] Shape:?Oval Imprint:??MV?;?15 Form:?Oral Tablet Original Note: PHARMACY VERIFIED HOME MED VILAZODONE 20 MG TAB #1 PILL DUE TO MEDICATION STORED IN A WEEKLY PILL CONTAINER
[2024-03-13] MEDS: traZODone HCL 50 MG TABLET 100 MG PO (20:00)
[2024-03-13] MEDS: oxyCODONE/ACETAMINOPHEN (*CRX) 5-325 MG TABLET 1 TABLET PO (20:00)
[2024-03-13] MEDS: VILAZODONE HCL 20 MG 1 EACH PO (20:04)
[2024-03-14] MEDS: oxyCODONE/ACETAMINOPHEN (*CRX) 5-325 MG TABLET 1 TABLET PO ×2 (04:40→21:35)
[2024-03-14 08:20] VITALS: BP 105/60
[2024-03-14 08:21] VITALS: BP 92/49; PULSE 94; RESP 18; TEMP 37; O2SAT 91
[2024-03-14] MEDS: oxyCODONE/ACETAMINOPHEN (*CRX) 10-325 MG TABLET 1 TAB PO ×2 (08:41→14:12)
[2024-03-14] MEDS: FAMOTIDINE 20 MG TABLET PO ×2 (08:41→21:35)
[2024-03-14] MEDS: SENNA/DOCUSATE SODIUM TABLET 2 TAB PO ×2 (08:42→17:47)
[2024-03-14] MEDS: polyethylene glycoL 3350 17 GM POWD.PACK PO (08:42)
--- NOTE | 2024-03-14 08:50 | PCOTNOTE ---
Attempted to see Patient for OT treatment session this session. Patient states she is in 9/10 pain lying in the bed. Patient's breakfast has arrived and therapist talked her into getting out of bed to eat. Patient performed bed to chair transfer with Contact Guard Assist. Patient sat and reqfused to stay in the chair and went right back to bed. Patient refusign to participate due to pain is not managed.
[2024-03-14 09:05] LABS: Hematocrit 24.3 % (37.0-47.0); Hemoglobin 7.9 g/dL (12.0-15.0); Mean Corpuscular HGB Conc 32.5 g/dl (32-36); Mean Corpuscular Hemoglobin 32.6 pg (26-34); Mean Corpuscular Volume 100.4 fl (80-100); Mean Platelet Volume 9.9 fl (7.4-10.4); Platelet Count Result 175 k/mm3 (150-375); Red Blood Count 2.42 M/mm3 (4.2-5.4); Red Cell Distribution Width 12.1 % (11.5-14.5); White Blood Count 5.1 K/mm3 (4.5-10.0)
[2024-03-14] MEDS: IBUPROFEN IV 800 MG/200 ML 800 MG/200 ML BAG 400 MG IVPB (09:15)
[2024-03-14 09:16] LABS: Anion Gap 3 mmol/L (4-12); Blood Urea Nitrogen 9 mg/dL (7-17); Calcium 8.3 mg/dL (8.4-10.2); Carbon Dioxide 27 mmol/L (22-30); Chloride 102 mmol/L (98-107); Estimated CRCL calculation 97 ml/min; Estimated Glomerular Filt Rate > 60; Glucose 110 mg/dL (65-110); Potassium 3.4 mmol/L (3.4-5.0); Sodium 132 mmol/L (137-145)
--- NOTE | 2024-03-14 09:55 | PM.PNORT ---
Progress Note: A&P Assessment and Plan (1) S/P total knee arthroplasty: Qualifiers: Laterality: left Qualified Code(s): Z96.652 - Presence of left artificial knee joint Code(s): Z96.659 - Presence of unspecified artificial knee joint Status: Acute Assessment and Plan: POD #2 :Left TKA Continue PT/OT. WBAT. Walker. HIGH FALL RISK. Continue pain control. Ice Knee. Protect skin. DVT prophylaxis with Xarelto due to history of DVT after a flight. Doppler of the LLE obtained today, negative for DVT. Plan to HOLD Xarelto per Dr. Rodas. Will decrease to 81mg Aspirin BID. Pending resolution of pain, will plan to increase to 325 mg Aspirin BID. SCDs. Incentive Spirometry Use reviewed. Monitor Dressing. Change prior to discharge. Bowel Regimen. HgB 7.9 today. Will repeat CBC in the AM. Dispo: Home with Home Health pending progress with PT/OT and improvement in pain control Time Spent With Patient Time: Reviewed history, exam, radiographs and current labs with attending MD and covering surgeon, Dr. Rodas, who agrees with current plan as indicated above. Dr. Rodas present for assessment and decision for plan of care. No further recommendations from Dr. Rodas at this time. Subjective Subjective Date/Time Seen: 03/14/24 09:55 Post Op day: 2 Principal diagnosis: Left Knee DJD Interval history: POD #2: Left TKA Patient having difficulty with pain control and slow progress with PT/OT. Requiring IV pain medication. Limited ability to work with PT due to pain and/or sitting for a prolonged period of time due to pain in the LLE and buttocks. Review of Systems Review of Systems: All systems reviewed & are unremarkable except as noted in HPI and below Constitutional: Constitutional: Denies fever(s) and Denies headache(s) ENT: Denies headache(s) Cardiovascular: Cardiovascular: Denies chest pain, Denies diaphoresis, Reports lightheadedness, Denies palpitations and Denies dyspnea Respiratory: Respiratory: Denies dyspnea Gastrointestinal: Gastrointestinal: Denies abdominal pain, Denies constipation, Denies nausea and Denies vomiting Genitourinary: Genitourinary: Reports nocturia and Denies dysuria Musculoskeletal: Musculoskeletal: Reports arthralgias (Left Knee ), Reports joint swelling (Left Knee ) and Reports limited range of motion (ROM limited due to recent surgical intervention LEFT Knee ) Neurologic: Denies headache(s) Endocrine: Endocrine: Denies palpitations Exam Const: General: comfortable and no acute distress Resp: Effort & Inspection: normal respiratory effort Cardio: Rate: regular rate Rhythm: regular rhythm GI: GI Palp: Yes Soft to palpation, No Tenderness to palpation present (GI) and No Guarding due to palpation present (GI) Skin: General skin exam: wounds noted (see extremity assessment ) Wounds: wounds noted (see extremity assessment ) Neuro: Cognition (Neuro): normal cognition Other: NV intact aside from block. Moves toes. Sensation intact to light touch. +ankle dorsiflexion/plantarflexion. Extrem: Left lower extremity: normal to inspection, normal capillary refill, knee Details: tenderness (diffuse ) Location: of the patella, swelling (moderate consistent to recent surgery ), abnormal ROM (limited due to recent surgery ) Details: pain with active ROM and pain with passive ROM and ecchymosis (as expected with recent surgery. NO hematoma. ), lower leg (Negative Susan's Sign ), ankle (+ankle dorsiflexion/plantarflexion ) Details: normal to inspection, no edema and normal ROM; no tenderness and no swelling and foot Details: normal capillary refill, toes with normal ROM, vascular exam Details: dorsalis pedis pulse present and motor-sensory exam light-touch normal; no tenderness Other: Incision left TKA dressing c/d/i. Left knee swelling, soft. Thigh soft. No signs of infection. No wound dehiscence. Psych: Mental Status: mental status grossly normal Objective Data Vital Signs Vital Signs: Vital Signs - 24 hr 03/13/24 11:01 03/13/24 15:01 03/13/24 19:01 Temperature 36.1 C L 36.3 C L 37.3 C Pulse Rate 80 83 88 Respiratory Rate 16 16 18 Blood Pressure 100/52 L 91/52 L 100/68 Pulse Oximetry 98 99 94 Oxygen Delivery 03/13/24 20:02 03/14/24 08:20 03/14/24 08:21 Temperature 37.3 C 37.0 C Pulse Rate 88 94 Respiratory Rate 18 18 Blood Pressure 109/68 105/60 92/49 L Pulse Oximetry 94 91 Oxygen Delivery 03/14/24 08:40 Temperature Pulse Rate Respiratory Rate Blood Pressure Pulse Oximetry Oxygen Delivery Room Air Intake/Output Intake/Output: Intake & Output 03/11/24 03/12/24 03/13/24 03/14/24 23:59 23:59 23:59 23:59 Intake Total 520 530 Output Total 400 500 Balance 120 30 Meds/Results Medications: Active Medications Generic Name Dose Route Start Last Admin Trade Name Freq PRN Reason Stop Dose Admin Acetaminophen 500 mg 03/12/24 17:16 Acetaminophen 500 Mg Tablet PO Q6H PRN Pain Rated 1-3 Diazepam 5 mg 03/12/24 17:16 03/13/24 09:42 Diazepam (*Crx) 5 Mg Tablet PO 5 mg Q8H PRN Administration Spasms Diphenhydramine HCl 25 mg 03/12/24 17:16 03/13/24 06:10 Diphenhydramine Hcl Inj 50 Mg/Ml Vial IV PUSH 25 mg Q6H PRN Administration Itching Famotidine 20 mg 03/12/24 21:00 03/14/24 08:41 Famotidine 20 Mg Tablet PO 20 mg Q12HR ELOISA Administration Hydromorphone HCl 1 mg 03/12/24 17:16 03/13/24 16:04 Hydromorphone Hcl Inj (*Crx) 1 Mg/Ml Syr IV PUSH 1 mg Q2H PRN Administration Breakthrough Pain Rated 7-10 or NPO Hydromorphone HCl 0.5 mg 03/12/24 17:16 03/13/24 11:55 Hydromorphone Hcl Inj (*Crx) 1 Mg/Ml Syr IV PUSH 0.5 mg Q2H PRN Administration Breakthrough Pain Rated 4-6 or NPO Hydroxyzine Pamoate 100 mg 03/13/24 06:54 03/13/24 12:47 Hydroxyzine Pamoate 25 Mg Capsule PO 100 mg Q6HR PRN Administration Itching Ibuprofen 800 mg in 200 mls @ 400 mls/hr 03/14/24 00:00 03/14/24 09:15 Caldolor 800 Mg/200 Ml IVPB 400 mls/hr Q6H PRN Administration Breakthrough Pain Rated 1-3 or NPO Miscellaneous Information 1 each 03/13/24 00:01 Med Rec Order Clarification XX 04/12/24 00:00 CLARIFY [facility] Miscellaneous Information 1 each 03/13/24 00:01 Med Rec Order Clarification XX 04/12/24 00:00 [facility] Naloxone HCl 0.1 mg 03/12/24 17:16 Naloxone Hcl 0.4 Mg/Ml Vial IV PUSH Q2M PRN Opiate Reversal Non-Formulary Medication 15 mg 03/12/24 17:16 Meloxicam PO PRN PRN Pain Ondansetron HCl 4 mg 03/12/24 17:16 03/13/24 08:21 Ondansetron Inj 4 Mg/2 Ml Vial IV PUSH 4 mg Q4H PRN Administration Nausea And Vomiting Oxycodone/Acetaminophen 1 tablet 03/12/24 17:16 03/14/24 04:40 Oxycodone/Acetaminophen (*Crx) 5-325 Mg Tablet PO 1 tablet Q4H PRN Administration Pain Rated 4-6 Oxycodone/Acetaminophen 1 tab 03/12/24 17:16 03/14/24 08:41 Oxycodone/Acetaminophen (*Crx) 10-325 Mg Tablet PO 1 tab Q6H PRN Administration Pain Rated 7-10 Polyethylene Glycol 17 gm 03/13/24 09:00 03/14/24 08:42 Polyethylene Glycol 3350 17 Gm Powd.Pack PO 17 gm QAM ELOISA Administration Rivaroxaban 10 mg 03/12/24 22:00 03/13/24 17:51 Rivaroxaban 10 Mg Tablet PO 03/23/24 17:01 10 mg DAILY@17 ELOISA Administration Senna/Docusate Sodium 2 tab 03/12/24 17:16 03/14/24 08:42 Senna/Docusate Sodium Tablet PO 2 tab BID ELOISA Administration Trazodone HCl 100 mg 03/12/24 21:00 03/13/24 20:00 Trazodone Hcl 50 Mg Tablet PO 100 mg QHS ELOISA Administration Radiology Results: ITS Impressions Knee X-Ray 03/12/24 16:52 IMPRESSION: 1. Recent left total knee arthroplasty. Labs Labs: Laboratory Results - last 24 hr 03/14/24 09:00 WBC 5.1 RBC 2.42 L Hgb 7.9 L Hct 24.3 L MCV 100.4 H MCH 32.6 MCHC 32.5 RDW 12.1 Plt Count 175 MPV 9.9 Sodium 132 L Potassium 3.4 Chloride 102 Carbon Dioxide 27 Anion Gap 3 L BUN 9 Creatinine 0.60 L Estim Creat Clear Calc 97 Estimated GFR > 60 Glucose 110 Calcium 8.3 L Quality VTE Prophylaxis VTE prophylaxis: pharmacologic ordered
--- NOTE | 2024-03-14 10:52 | PCOTNOTE ---
The patient treatment was not able to be completed. Patient doing testing. Will plan to continue treatment per plan of care.
[2024-03-14 12:00] VITALS: BP 110/60; PULSE 74; RESP 20; TEMP 36.5; O2SAT 94
[2024-03-14] MEDS: ONDANSETRON INJ 4 MG/2 ML VIAL IV PUSH (14:12)
[2024-03-14] MEDS: TRANEXAMIC ACID 1,000MG/ISO100 1,000 MG/100 ML BAG 150 MG IVPB (14:47)
--- NOTE | 2024-03-14 14:47 | PCOTNOTE ---
Attempted again this afternoon. Patient recently finished PT session, back into bed and getting pain medications and an IV hung at this time. Patient refusefd to participate in OT services, stated she is not leaving this date, will be here in the morning and will participate in dressing. Patient states she is in to much pain.
[2024-03-14 15:48] LABS: Hematocrit 22.7 % (37.0-47.0); Hemoglobin 7.4 g/dL (12.0-15.0); Mean Corpuscular HGB Conc 32.6 g/dl (32-36); Mean Corpuscular Hemoglobin 32.7 pg (26-34); Mean Corpuscular Volume 100.4 fl (80-100); Mean Platelet Volume 9.6 fl (7.4-10.4); Platelet Count Result 164 k/mm3 (150-375); Red Blood Count 2.26 M/mm3 (4.2-5.4)
[2024-03-14 15:58] LABS: Anion Gap 2 mmol/L (4-12); Blood Urea Nitrogen 8 mg/dL (7-17); Calcium 8.3 mg/dL (8.4-10.2); Carbon Dioxide 33 mmol/L (22-30); Chloride 102 mmol/L (98-107); Estimated CRCL calculation 85 ml/min; Estimated Glomerular Filt Rate > 60; Glucose 99 mg/dL (65-110); Potassium 3.6 mmol/L (3.4-5.0); Sodium 137 mmol/L (137-145)
[2024-03-14 16:10] VITALS: BP 103/57; PULSE 81; RESP 18; TEMP 36.4; O2SAT 97
[2024-03-14] MEDS: ASPIRIN 81 MG ENTERIC TABLET PO (17:47)
[2024-03-14] MEDS: diazePAM (*CRX) 5 MG TABLET PO (17:47)
[2024-03-14] MEDS: IBUPROFEN IV 800 MG/200 ML 800 MG/200 ML BAG 150 MG IVPB (17:50)
[2024-03-14 19:40] VITALS: BP 109/65; PULSE 83; RESP 18; TEMP 36.9; O2SAT 97
[2024-03-14] MEDS: traZODone HCL 50 MG TABLET 100 MG PO (21:35)
[2024-03-15] MEDS: oxyCODONE/ACETAMINOPHEN (*CRX) 5-325 MG TABLET 1 TABLET PO ×3 (01:57→14:10)
[2024-03-15] MEDS: IBUPROFEN IV 800 MG/200 ML 800 MG/200 ML BAG 300 MG IVPB (05:51)
[2024-03-15 07:30] VITALS: BP 109/55; PULSE 83; RESP 12; O2SAT 94
[2024-03-15] MEDS: SENNA/DOCUSATE SODIUM TABLET 2 TAB PO (08:45)
[2024-03-15] MEDS: FAMOTIDINE 20 MG TABLET PO (08:46)
[2024-03-15] MEDS: ASPIRIN 81 MG ENTERIC TABLET PO (08:46)
[2024-03-15] MEDS: diazePAM (*CRX) 5 MG TABLET PO (08:46)
[2024-03-15] MEDS: polyethylene glycoL 3350 17 GM POWD.PACK PO (08:46)
--- NOTE | 2024-03-15 08:47 | PM.PNORT ---
Progress Note: A&P Assessment and Plan (1) S/P total knee arthroplasty: Qualifiers: Laterality: left Qualified Code(s): Z96.652 - Presence of left artificial knee joint Code(s): Z96.659 - Presence of unspecified artificial knee joint Status: Acute Assessment and Plan: postoperative day 3 left knee arthroplasty. Expected amount of swelling about the knee. No signs infection. Negative Homans sign and Doppler negative. Continue pain control. Continue PT/OT. Weightbear as tolerated. We will see how she does today. If her pain is under control and she is able to mobilize plan for home with home health. (2) Acute postoperative anemia due to expected blood loss: Code(s): D62 - Acute posthemorrhagic anemia Status: Acute Assessment and Plan: H&H trending down however remains stable. Will continue To monitor. Subjective Subjective Date/Time Seen: 03/15/24 08:47 Post Op day: 3 Principal diagnosis: Left knee arthritis Interval history: patient reports pain and swelling left knee. Difficulty moving the leg. Difficulty getting out of bed. Reports swelling slightly improved today. Pain better with IV ibuprofen. Exam Const: General: comfortable and no acute distress Resp: Effort & Inspection: normal respiratory effort Cardio: Rate: regular rate Rhythm: regular rhythm Extrem: Left lower extremity: normal to inspection, normal capillary refill, knee Details: tenderness (diffuse ) Location: of the patella, swelling (moderate consistent to recent surgery ), abnormal ROM (limited due to recent surgery ) Details: pain with active ROM and pain with passive ROM and ecchymosis (as expected with recent surgery. NO hematoma. ), lower leg (Negative Susan's Sign ), ankle (+ankle dorsiflexion/plantarflexion ) Details: normal to inspection, no edema and normal ROM; no tenderness and no swelling and foot Details: normal capillary refill, toes with normal ROM, vascular exam Details: dorsalis pedis pulse present and motor-sensory exam light-touch normal; no tenderness Other: Incision left TKA dressing Clean, dry and intact. Left knee swelling, soft. Thigh soft. No signs of infection. No wound dehiscence. moves toes. Good capillary refill and sensation to touch throughout. Negative Homans sign Psych: Mental Status: mental status grossly normal Objective Data Vital Signs Vital Signs: Vital Signs - 24 hr 03/14/24 12:00 03/14/24 16:10 03/14/24 19:40 Temperature 97.7 F 97.6 F 98.5 F Pulse Rate 74 81 83 Respiratory Rate 20 18 18 Blood Pressure 110/60 103/57 L 109/65 Pulse Oximetry 94 97 97 Intake/Output Intake/Output: Intake & Output 03/12/24 03/13/24 03/14/24 03/15/24 23:59 23:59 23:59 23:59 Intake Total 520 530 640 200 Output Total 400 500 Balance 120 30 640 200 Meds/Results Medications: Active Medications Generic Name Dose Route Start Last Admin Trade Name Freq PRN Reason Stop Dose Admin Acetaminophen 500 mg 03/12/24 17:16 Acetaminophen 500 Mg Tablet PO Q6H PRN Pain Rated 1-3 Aspirin 81 mg 03/14/24 17:00 03/15/24 08:46 Aspirin 81 Mg Enteric Tablet PO 81 mg BID ELOISA Administration Diazepam 5 mg 03/12/24 17:16 03/15/24 08:46 Diazepam (*Crx) 5 Mg Tablet PO 5 mg Q8H PRN Administration Spasms Diphenhydramine HCl 25 mg 03/12/24 17:16 03/13/24 06:10 Diphenhydramine Hcl Inj 50 Mg/Ml Vial IV PUSH 25 mg Q6H PRN Administration Itching Famotidine 20 mg 03/12/24 21:00 03/15/24 08:46 Famotidine 20 Mg Tablet PO 20 mg Q12HR ELOISA Administration Hydromorphone HCl 1 mg 03/12/24 17:16 03/13/24 16:04 Hydromorphone Hcl Inj (*Crx) 1 Mg/Ml Syr IV PUSH 1 mg Q2H PRN Administration Breakthrough Pain Rated 7-10 or NPO Hydromorphone HCl 0.5 mg 03/12/24 17:16 03/13/24 11:55 Hydromorphone Hcl Inj (*Crx) 1 Mg/Ml Syr IV PUSH 0.5 mg Q2H PRN Administration Breakthrough Pain Rated 4-6 or NPO Hydroxyzine Pamoate 100 mg 03/13/24 06:54 03/13/24 12:47 Hydroxyzine Pamoate 25 Mg Capsule PO 100 mg Q6HR PRN Administration Itching Ibuprofen 800 mg in 200 mls @ 400 mls/hr 03/14/24 00:00 03/15/24 06:31 Caldolor 800 Mg/200 Ml IVPB Infused Q6H PRN Infusion Breakthrough Pain Rated 1-3 or NPO Miscellaneous Information 1 each 03/13/24 00:01 Med Rec Order Clarification XX 04/12/24 00:00 CLARIFY [facility] Miscellaneous Information 1 each 03/13/24 00:01 Med Rec Order Clarification XX 04/12/24 00:00 CLARIFY [facility] Naloxone HCl 0.1 mg 03/12/24 17:16 Naloxone Hcl 0.4 Mg/Ml Vial IV PUSH Q2M PRN Opiate Reversal Non-Formulary Medication 15 mg 03/12/24 17:16 Meloxicam PO PRN PRN Pain Ondansetron HCl 4 mg 03/12/24 17:16 03/14/24 14:12 Ondansetron Inj 4 Mg/2 Ml Vial IV PUSH 4 mg Q4H PRN Administration Nausea And Vomiting Oxycodone/Acetaminophen 1 tablet 03/12/24 17:16 03/15/24 08:46 Oxycodone/Acetaminophen (*Crx) 5-325 Mg Tablet PO 1 tablet Q4H PRN Administration Pain Rated 4-6 Oxycodone/Acetaminophen 1 tab 03/12/24 17:16 03/14/24 14:12 Oxycodone/Acetaminophen (*Crx) 10-325 Mg Tablet PO 1 tab Q6H PRN Administration Pain Rated 7-10 Polyethylene Glycol 17 gm 03/13/24 09:00 03/15/24 08:46 Polyethylene Glycol 3350 17 Gm Powd.Pack PO 17 gm QAM ELOISA Administration Rivaroxaban 10 mg 03/12/24 22:00 03/13/24 17:51 Rivaroxaban 10 Mg Tablet PO 10 mg DAILY@17 [facility] Administration Senna/Docusate Sodium 2 tab 03/12/24 17:16 03/15/24 08:45 Senna/Docusate Sodium Tablet PO 2 tab BID ELOISA Administration Trazodone HCl 100 mg 03/12/24 21:00 03/14/24 21:35 Trazodone Hcl 50 Mg Tablet PO 100 mg QHS ELOISA Administration Radiology Results: ITS Impressions Knee X-Ray 03/12/24 16:52 IMPRESSION: 1. Recent left total knee arthroplasty. Venous Doppler Study 03/14/24 11:42 IMPRESSION: Negative left lower extremity venous US. No deep vein thrombosis. Labs Labs: Laboratory Results - last 24 hr 03/14/24 03/14/24 09:00 15:36 WBC 5.1 4.0 L RBC 2.42 L 2.26 L Hgb 7.9 L 7.4 L Hct 24.3 L 22.7 L MCV 100.4 H 100.4 H MCH 32.6 32.7 MCHC 32.5 32.6 RDW 12.1 12.0 Plt Count 175 164 MPV 9.9 9.6 Sodium 132 L 137 Potassium 3.4 3.6 Chloride 102 102 Carbon Dioxide 27 33 H Anion Gap 3 L 2 L BUN 9 8 Creatinine 0.60 L 0.70 Estim Creat Clear Calc 97 85 Estimated GFR > 60 > 60 Glucose 110 99 Calcium 8.3 L 8.3 L
[2024-03-15 08:50] LABS: Basophils Percent Auto 0.6 % (0.2-1.2); Eosinophils Absolute Auto 0.2 K/mm3 (0-0.3); Eosinophils Percent Auto 2.4 % (0-4.4); Hematocrit 24.7 % (37.0-47.0); Hemoglobin 7.8 g/dL (12.0-15.0); Immature Granulocyte Absolute 0.02 K/mm3 (0.00-0.031); Immature Granulocyte Percent A 0.3 % (0-0.5); Lymphocytes Absolute Auto 1.03 K/mm3 (0.9-3.2); Lymphocytes Percent Auto 15.6 % (18.3-44.2); Mean Corpuscular HGB Conc 31.6 g/dl (32-36); Mean Corpuscular Hemoglobin 31.8 pg (26-34); Mean Corpuscular Volume 100.8 fl (80-100); Mean Platelet Volume 9.5 fl (7.4-10.4); Monocytes Absolute Auto 0.7 K/mm3 (0.1-0.6); Monocytes Percent Auto 10.5 % (2.6-8.5); Neutrophils Absolute Auto 4.7 K/mm3 (1.3-6.7); Neutrophils Percent Auto 70.6 % (45.5-73.1); Platelet Count Result 201 k/mm3 (150-375); Red Blood Count 2.45 M/mm3 (4.2-5.4); Red Cell Distribution Width 11.9 % (11.5-14.5); White Blood Count 6.6 K/mm3 (4.5-10.0)
[2024-03-15 09:01] LABS: Alanine Aminotransferase 72 U/L (6-35); Albumin Level 3.7 g/dL (3.5-5.1); Alkaline Phosphatase 106 U/L (38-126); Anion Gap 6 mmol/L (4-12); Aspartate Amino Transferase 75 U/L (14-36); Bilirubin,Total 0.7 mg/dL (0.2-1.3); Blood Urea Nitrogen 6 mg/dL (7-17); Calcium 8.4 mg/dL (8.4-10.2); Carbon Dioxide 32 mmol/L (22-30); Chloride 98 mmol/L (98-107); Estimated CRCL calculation 97 ml/min; Estimated Glomerular Filt Rate > 60; Glucose 109 mg/dL (65-110); Potassium 3.2 mmol/L (3.4-5.0); Sodium 136 mmol/L (137-145)
[2024-03-15] MEDS: ACETAMINOPHEN 500 MG TABLET PO (11:29)
--- NOTE | 2024-03-15 13:43 | PM.PNORT ---
Progress Note: A&P Assessment and Plan (1) S/P total knee arthroplasty: Qualifiers: Laterality: left Qualified Code(s): Z96.652 - Presence of left artificial knee joint Code(s): Z96.659 - Presence of unspecified artificial knee joint Status: Acute Assessment and Plan: Postoperative day 3 left total knee arthroplasty. Patient reports pain improved today. Discussion with physical therapy - patient passed therapy for discharge home. Leg lift strap dispensed. Reviewed activity limitations and recommendations. Per floor nursing- patient stable for discharge. Patient would like to be discharged to return home. home health with therapy in place. Discharge home. Discharge instructions reviewed. Valium p.r.n. muscle spasm added to medication regimen. Subjective Subjective Date/Time Seen: 03/15/24 13:43 Objective Data Vital Signs Vital Signs: Vital Signs - 24 hr 03/14/24 16:10 03/14/24 19:40 03/15/24 07:30 Temperature 97.6 F 98.5 F Pulse Rate 81 83 83 Respiratory Rate 18 18 12 Blood Pressure 103/57 L 109/65 109/55 L Pulse Oximetry 97 97 94 Oxygen Delivery 03/15/24 08:46 Temperature Pulse Rate Respiratory Rate Blood Pressure Pulse Oximetry Oxygen Delivery Room Air Intake/Output Intake/Output: Intake & Output 03/12/24 03/13/24 03/14/24 03/15/24 23:59 23:59 23:59 23:59 Intake Total 520 530 640 200 Output Total 400 500 Balance 120 30 640 200 Meds/Results Medications: Active Medications Generic Name Dose Route Start Last Admin Trade Name Freq PRN Reason Stop Dose Admin Acetaminophen 500 mg 03/12/24 17:16 03/15/24 11:29 Acetaminophen 500 Mg Tablet PO 500 mg Q6H PRN Administration Pain Rated 1-3 Aspirin 81 mg 03/14/24 17:00 03/15/24 08:46 Aspirin 81 Mg Enteric Tablet PO 81 mg BID ELOISA Administration Diazepam 5 mg 03/12/24 17:16 03/15/24 08:46 Diazepam (*Crx) 5 Mg Tablet PO 5 mg Q8H PRN Administration Spasms Diphenhydramine HCl 25 mg 03/12/24 17:16 03/13/24 06:10 Diphenhydramine Hcl Inj 50 Mg/Ml Vial IV PUSH 25 mg Q6H PRN Administration Itching Famotidine 20 mg 03/12/24 21:00 03/15/24 08:46 Famotidine 20 Mg Tablet PO 20 mg Q12HR ELOISA Administration Hydromorphone HCl 1 mg 03/12/24 17:16 03/13/24 16:04 Hydromorphone Hcl Inj (*Crx) 1 Mg/Ml Syr IV PUSH 1 mg Q2H PRN Administration Breakthrough Pain Rated 7-10 or NPO Hydromorphone HCl 0.5 mg 03/12/24 17:16 03/13/24 11:55 Hydromorphone Hcl Inj (*Crx) 1 Mg/Ml Syr IV PUSH 0.5 mg Q2H PRN Administration Breakthrough Pain Rated 4-6 or NPO Hydroxyzine Pamoate 100 mg 03/13/24 06:54 03/13/24 12:47 Hydroxyzine Pamoate 25 Mg Capsule PO 100 mg Q6HR PRN Administration Itching Ibuprofen 800 mg in 200 mls @ 400 mls/hr 03/14/24 00:00 03/15/24 06:31 Caldolor 800 Mg/200 Ml IVPB Infused Q6H PRN Infusion Breakthrough Pain Rated 1-3 or NPO Miscellaneous Information 1 each 03/13/24 00:01 Med Rec Order Clarification XX 04/12/24 00:00 CLARIFY [facility] Miscellaneous Information 1 each 03/13/24 00:01 Med Rec Order Clarification XX 04/12/24 00:00 CLARIFY [facility] Naloxone HCl 0.1 mg 03/12/24 17:16 Naloxone Hcl 0.4 Mg/Ml Vial IV PUSH Q2M PRN Opiate Reversal Non-Formulary Medication 15 mg 03/12/24 17:16 Meloxicam PO PRN PRN Pain Ondansetron HCl 4 mg 03/12/24 17:16 03/14/24 14:12 Ondansetron Inj 4 Mg/2 Ml Vial IV PUSH 4 mg Q4H PRN Administration Nausea And Vomiting Oxycodone/Acetaminophen 1 tablet 03/12/24 17:16 03/15/24 08:46 Oxycodone/Acetaminophen (*Crx) 5-325 Mg Tablet PO 1 tablet Q4H PRN Administration Pain Rated 4-6 Oxycodone/Acetaminophen 1 tab 03/12/24 17:16 03/14/24 14:12 Oxycodone/Acetaminophen (*Crx) 10-325 Mg Tablet PO 1 tab Q6H PRN Administration Pain Rated 7-10 Polyethylene Glycol 17 gm 03/13/24 09:00 03/15/24 08:46 Polyethylene Glycol 3350 17 Gm Powd.Pack PO 17 gm QAM EOLISA Administration Rivaroxaban 10 mg 03/12/24 22:00 03/13/24 17:51 Rivaroxaban 10 Mg Tablet PO 10 mg DAILY@17 [facility] Administration Senna/Docusate Sodium 2 tab 03/12/24 17:16 03/15/24 08:45 Senna/Docusate Sodium Tablet PO 2 tab BID ELOISA Administration Trazodone HCl 100 mg 03/12/24 21:00 03/14/24 21:35 Trazodone Hcl 50 Mg Tablet PO 100 mg QHS ELOISA Administration Radiology Results: ITS Impressions Knee X-Ray 03/12/24 16:52 IMPRESSION: 1. Recent left total knee arthroplasty. Venous Doppler Study 03/14/24 11:42 IMPRESSION: Negative left lower extremity venous US. No deep vein thrombosis. Labs Labs: Laboratory Results - last 24 hr 03/14/24 03/15/24 15:36 08:42 WBC 4.0 L 6.6 RBC 2.26 L 2.45 L Hgb 7.4 L 7.8 L Hct 22.7 L 24.7 L MCV 100.4 H 100.8 H MCH 32.7 31.8 MCHC 32.6 31.6 L RDW 12.0 11.9 Plt Count 164 201 MPV 9.6 9.5 Immature Gran % (Auto) 0.3 Neut % (Auto) 70.6 Lymph % (Auto) 15.6 L [place] % (Auto) 10.5 H Eos % (Auto) 2.4 Baso % (Auto) 0.6 Lymph # (Auto) 1.03 [place] # (Auto) 0.7 H Eos # (Auto) 0.2 Baso # (Auto) 0.0 Abs Immat Gran (auto) 0.02 Absolute Neuts (auto) 4.7 Absolute Nucleated RBC 0.000 Nucleated RBC % 0.0 Sodium 137 136 L Potassium 3.6 3.2 L Chloride 102 98 Carbon Dioxide 33 H 32 H Anion Gap 2 L 6 BUN 8 6 L Creatinine 0.70 0.60 L Estim Creat Clear Calc 85 97 Estimated GFR > 60 > 60 Glucose 99 109 Calcium 8.3 L 8.4 Total Bilirubin 0.7 AST 75 H ALT 72 H Alkaline Phosphatase 106 Total Protein 7.0 Albumin 3.7
== END 2024-03-15 14:10 | disposition home health service (06) ==
LOC: ANHSURGERY 03-14 08:27 → ANH2MED 03-14 08:27
PROVIDERS: Nurse Practitioner Family; Admitting Provider Orthopaedic Surgery; PCP Internal Medicine; Visit Provider Orthopaedic Surgery
PROC: (CPT 27447; principal; 2024-03-12 12:00)
DX: M17.12 Unilateral primary osteoarthritis, left knee (principal); D62 Acute posthemorrhagic anemia; G89.18 Other acute postprocedural pain; F41.8 Other specified anxiety disorders; E66.9 Obesity, unspecified; Z68.31 Body mass index [BMI] 31.0-31.9, adult; Z86.718 Personal history of other venous thrombosis and embolism
CPT/HCPCS: 27447; 64447; 36415; 73560; 80048; 80053; 85025; 85027; 93971; 97110; 97116; 97161; 97165; 97530; 97535; A9270; C1713; C1776; G0378; J0171; J0690; J1100; J1171; J1200; J1741; J1885; J2003; J2250; J2270; J2405; J2704; J2795; J3010; J3360; J3370; J7030; J7120

== ENCOUNTER 2024-03-18 12:23 | Outpatient (CLI) | payer BC, SELFPAY ==
--- NOTE | ~2024-03-18 | US_ITS ---
EXAMINATION: US venous doppler [facility] DATE: 03/18/2024 13:12 INDICATION: Lower limb pain. TECHNIQUE: Grayscale ultrasound images without and with compression and Doppler ultrasound images of the bilateral lower extremity veins were obtained. COMPARISON: Ultrasound 03/14/2024 FINDINGS: The visualized portions of right common femoral vein, profunda (deep) femoral vein, femoral vein, pop liteal vein, peroneal veins, posterior tibial veins, and greater saphenous vein outflow are patent. The visualized portions of left common femoral vein, profunda femoral vein, femoral vein, popliteal v ein, peroneal veins, posterior tibial veins, and greater saphenous vein outflow are patent. IMPRESSION: 1. No deep venous thrombosis. Reviewed, dictated and finalized at location B.
== END 2024-03-18 12:24 | disposition home or self-care (01) ==
LOC: ANHIMG 12:26
PROVIDERS: PCP Internal Medicine; Visit Provider Orthopaedic Surgery
DX: M79.661 Pain in right lower leg (principal); M79.662 Pain in left lower leg
CPT/HCPCS: 93970

== ENCOUNTER 2024-04-04 10:31 | Outpatient (CLI) | payer BC, SELFPAY ==
[2024-04-04 13:58] LABS: Add Urine Microscopic? NO; Appearance Urine Clear (Clear); Bilirubin Urine Negative (Negative); Blood Urine Negative (Negative); Color Urine Yellow (Yellow); Glucose Urine UA Negative (Negative); Ketones Urine Negative (Negative); Leukocyte Esterase Ur Negative LEU/UL (Negative); Nitrate Urine Negative (Negative); Protein Urine Negative (Negative); Specific Grav Ur 1.022 (1.001-1.035); pH Urine 6.5 (5.0-9.0)
[2024-04-04 14:04] LABS: Basophils Absolute Auto 0.1 K/mm3 (0.0-0.1); Basophils Percent Auto 1.7 % (0.2-1.2); Eosinophils Absolute Auto 0.2 K/mm3 (0-0.3); Eosinophils Percent Auto 3.1 % (0-4.4); Hemoglobin 11.1 g/dL (12.0-15.0); Immature Granulocyte Absolute 0.02 K/mm3 (0.00-0.031); Immature Granulocyte Percent A 0.3 % (0-0.5); Lymphocytes Absolute Auto 1.72 K/mm3 (0.9-3.2); Lymphocytes Percent Auto 29.9 % (18.3-44.2); Mean Corpuscular HGB Conc 30.8 g/dl (32-36); Mean Corpuscular Hemoglobin 30.2 pg (26-34); Mean Corpuscular Volume 98.1 fl (80-100); Mean Platelet Volume 9.5 fl (7.4-10.4); Monocytes Absolute Auto 0.5 K/mm3 (0.1-0.6); Monocytes Percent Auto 8.2 % (2.6-8.5); Neutrophils Absolute Auto 3.3 K/mm3 (1.3-6.7); Neutrophils Percent Auto 56.8 % (45.5-73.1); Platelet Count Result 569 k/mm3 (150-375); Red Blood Count 3.67 M/mm3 (4.2-5.4); Red Cell Distribution Width 12.9 % (11.5-14.5); White Blood Count 5.8 K/mm3 (4.5-10.0)
[2024-04-04 14:26] LABS: Alanine Aminotransferase 24 U/L (6-35); Albumin Level 4.5 g/dL (3.5-5.1); Alkaline Phosphatase 103 U/L (38-126); Anion Gap 6 mmol/L (4-12); Aspartate Amino Transferase 54 U/L (14-36); Bilirubin,Total 0.5 mg/dL (0.2-1.3); Blood Urea Nitrogen 13 mg/dL (7-17); Calcium 9.4 mg/dL (8.4-10.2); Carbon Dioxide 29 mmol/L (22-30); Chloride 103 mmol/L (98-107); Estimated Glomerular Filt Rate > 60; Glucose 102 mg/dL (65-110); Potassium 4.6 mmol/L (3.4-5.0); Sodium 138 mmol/L (137-145)
[2024-04-04 14:32] LABS: Erythrocyte Sedimentation Rate 61 mm/hr (0-20)
[2024-04-04 15:16] LABS: Rheumatoid Factor < 12.0 IU/ML (<12)
[2024-04-08 12:58] LABS: Anti Cyclic Citrullinated Pept <16 UNITS
== END 2024-04-04 10:32 | disposition home or self-care (01) ==
LOC: ANHGOSHLAB 10:32
PROVIDERS: PCP Internal Medicine; Visit Provider Orthopaedic Surgery
DX: R53.83 Other fatigue (principal); M06.9 Rheumatoid arthritis, unspecified
CPT/HCPCS: 36415; 80053; 81003; 85025; 85652; 86038; 86039; 86200; 86430

== ENCOUNTER 2024-07-22 08:34 | Outpatient (CLI) | payer BC, SELFPAY ==
[2024-07-22 14:00] LABS: Basophils Absolute Auto 0.1 K/mm3 (0.0-0.1); Basophils Percent Auto 1.1 % (0.2-1.2); Eosinophils Absolute Auto 0.2 K/mm3 (0-0.3); Eosinophils Percent Auto 4.3 % (0-4.4); Hematocrit 41.2 % (37.0-47.0); Hemoglobin 13.2 g/dL (12.0-15.0); Immature Granulocyte Absolute 0.02 K/mm3 (0.00-0.031); Immature Granulocyte Percent A 0.4 % (0-0.5); Lymphocytes Percent Auto 39.5 % (18.3-44.2); Mean Corpuscular Hemoglobin 30.3 pg (26-34); Mean Corpuscular Volume 94.7 fl (80-100); Mean Platelet Volume 10.2 fl (7.4-10.4); Monocytes Absolute Auto 0.5 K/mm3 (0.1-0.6); Monocytes Percent Auto 10.2 % (2.6-8.5); Neutrophils Absolute Auto 2.4 K/mm3 (1.3-6.7); Neutrophils Percent Auto 44.5 % (45.5-73.1); Platelet Count Result 311 k/mm3 (150-375); Red Blood Count 4.35 M/mm3 (4.2-5.4); Red Cell Distribution Width 14.3 % (11.5-14.5); White Blood Count 5.3 K/mm3 (4.5-10.0)
[2024-07-22 15:00] LABS: Alanine Aminotransferase 23 U/L (6-35); Albumin Level 4.4 g/dL (3.5-5.1); Alkaline Phosphatase 82 U/L (38-126); Anion Gap 6 mmol/L (4-12); Aspartate Amino Transferase 38 U/L (14-36); Bilirubin,Total 0.5 mg/dL (0.2-1.3); Blood Urea Nitrogen 16 mg/dL (7-17); Calcium 9.8 mg/dL (8.4-10.2); Carbon Dioxide 32 mmol/L (22-30); Chloride 100 mmol/L (98-107); Cholesterol 236 mg/dL (0-200); Estimated Glomerular Filt Rate > 60; Glucose 92 mg/dL (65-110); HDL Direct 101 mg/dL; Potassium 4.6 mmol/L (3.4-5.0); Sodium 138 mmol/L (137-145); Triglycerides 61 mg/dL (<150)
[2024-07-22 15:11] LABS: LDL Cholesterol Direct 90 mg/dL
[2024-07-22 21:51] LABS: Hemoglobin A1C 5.6 % (<5.7)
== END 2024-07-22 08:35 | disposition home or self-care (01) ==
LOC: ANHGOSHLAB 08:35
PROVIDERS: PCP Internal Medicine; Visit Provider Clinical Nurse Specialist
DX: R73.9 Hyperglycemia, unspecified (principal); E78.00 Pure hypercholesterolemia, unspecified; R53.83 Other fatigue; Z13.29 Encounter for screening for other suspected endocrine disorder
CPT/HCPCS: 36415; 80053; 80061; 82306; 83036; 84443; 85025

== ENCOUNTER 2024-12-13 10:08 | Outpatient (CLI) | payer BC, SELFPAY ==
--- OUTSIDE RECORDS SUMMARY | 2024-12-13 10:13 | XMS_ITS | Referral Summary ---
Author Organization [facility] [place] [address] Address [address] [place] [id number] Care Team Providers Care Pocketed Spring Machine Operator Name Role Phone Bree Montemayor MD Unavailable [phone] Dick Kent DO Primary Care Provider [phone] Allergies No known active allergies Medications vilazodone (VIIBRYD) 10 mg tablet Take 1 tablet (10 mg total) by mouth every morning 3 Active traZODone (DESYREL) 100 mg tablet Take 1 tablet (100 mg total) by mouth nightly Active meloxicam (MOBIC) 15 mg tabletIndications:C hondromalacia of left patellofemoral joint,Synovial cyst of left popliteal space,Acute pain of left knee TAKE 1 TABLET (15 MG TOTAL) BY MOUTH DAILY WITH FOOD NEEDED FOR PAIN 30 tablet 4 Active Active Problems Problem Noted Date Diagnosed Date Chondromalacia of left patellofemoral joint 04/22 Family history of rheumatoid arthritis 3 Synovial cyst of left popliteal space 05/05/2023 Social History Tobacco Use Types Packs/Day Years Used Date Smoking Tobacco: Never Smokeless Tobacco: Never Tobacco Cessation:Counseling Given: Not Answered Comments Unknown Sex and Gender Information Value Date Recorded Sex Assigned at Not on file Legal Sex Female 3:06 AM QUALITY ASSURANCE DIRECTOR Gender Identity Female 05/11/2021 11:56 PM QUALITY ASSURANCE DIRECTOR Sexual Orientation Straight 05/11/2021 11 :56 PM QUALITY ASSURANCE DIRECTOR Last Filed Vital Signs Vital Sign Reading Time Taken Comments Blood Pressure 126/87 08/25/2023 10:12 AM CDT Pulse 69 08/25/2023 10:12 AM CDT Temperature - - Respiratory Rate - - Oxygen Saturation - - Inhaled Oxygen Concentration - - Weight 89 kg (196 lb 3.2 oz) 08/25/2023 10:12 AM CDT Height 166.4 cm (5' 5.5) 08/25/2023 10:12 AM CD T Body Mass Index 32.15 08/25/2023 10:12 AM CDT Plan of Treatment Not on file Procedures Procedure Name Priority Date/Time Associated Diagnosis Comments SCREENING MAMMOGRAM BILATERAL W PANCHO Schedule Routine, Read Routine (OP Routine) 05/07/2024 9:44 AM QUALITY ASSURANCE DIRECTOR Screening mammogram, encounter for from Last 3 Months or Most Recently Relevant to Health Maintenance Results * Screening Mammogram Bilateral W Pancho (05/07/2024 9:44 AM QUALITY ASSURANCE DIRECTOR) Anatomical Region Laterality Modality Breast Bilateral Mammography Narrative 05/08/2024 9:52 AM QUALITY ASSURANCE DIRECTOR Mammogram Technique: Bilateral Digital Breast Tomosynthesis, Bilateral C-view 2D Screening mammogram. Views obtained: bilateral craniocaudal and bilateral mediolateral oblique. Computer Aided Detection was performed. Mammogram Findings: The present examination has been compared to prior imaging studies performed at [facility] on 01/16/2021, 03/31/2022 and 05/02/2023. There are scattered areas of fibroglandular density. There is no suspicious abnormality in either breast. Impression: There is no mammographic evidence of malignancy. Annual screening mammography is recommended. OVERALL FINAL ASSESSMENT: BI-RADS CATEGORY 1: Negative. Procedure Note Víctor Gaines MD - 05/08/2024 Mammogram Technique: Bilateral Digital Breast Tomosynthesis, Bilateral C-view 2D Screening mammogram. Views obtained: bilateral craniocaudal and bilateral mediolateral oblique. Computer Aided Detection was performed. Mammogram Findings: The present examination has been compared to prior imaging studies performed at [facility] on 01/16/2021, 03/31/2022 and 05/02/2023. There are scattered areas of fibroglandular density. There is no suspicious abnormality in either breast. Impression: There is no mammographic evidence of malignancy. Annual screening mammography is recommended. OVERALL FINAL ASSESSMENT: BI-RADS CATEGORY 1: Negative. us Self Screening Mammogram IMG MAMMO PROCEDURES Fi nal Result from Last 3 Months or Most Recently Relevant to Health Maintenance Insurance [employer] ACCESS CHOICE [employer] ACCESS CHOICE [facility] ACCESS CHOICE Care Teams Pocketed Spring Machine Operator Relationship Specialty Start Date End Date Dick Kent DO [address] [place], [place] [id number] PCP - General Internal Medicine 05/02/23 Bree Montemayor MD [address] [place] [address] Referring Physician Gynecology 03/31/22
--- OUTSIDE RECORDS SUMMARY | 2024-12-13 10:13 | XMS_ITS | Clinical Summary ---
Author Organization [facility] [place] [address] Address [address] [place] [id number] Care Team Providers Care Credit Risk Specialist Name Role Phone Bree Montemayor MD Unavailable [phone] Dick Kent DO Primary Care Provider [phone] Allergies No known active allergies Medications vilazodone [...] Synovial cyst of left popliteal space 05/05/2023 Surgical History Surgery Date Site/Laterality Comments CHOLECYSTECTOMY BUNIONECTOMY Left Medical History Medical History Date Comments Deep vein thrombosis (HCC) Family History Medical History Relation Name Comments Arthritis Father Cancer Father Cancer Other Rheum arthritis Other Heart disease Paternal Grandmother Relation Name Status Comments Father Other Paternal Grandmother Social History Tobacco Use Types Packs/Day Years Used Date Smoking Tobacco: Never Smokeless Tobacco: Never Tobacco Cessation:Counseling Given: Not Answered Comments Unknown Sex and Gender Information Value Date Recorded Sex Assigned at Not on file Legal Sex Female 3:06 AM MARINE PILOT Gender Identity Female 05/11/2021 11:56 PM MARINE PILOT Sexual Orientation Straight 05/11/2021 11 :56 PM MARINE PILOT Obstetrics History Last Filed Vital Signs Vital Sign Reading [...] 08/25/2023 10:12 AM CDT Plan of Treatment Health Maintenance Due Date Last Done Comments Cervical Cancer Screening 1967 Colon Cancer Screening-Colonoscopy 1967 Depression Screening 1967 Hepatitis C Screening 1967 Hepatitis B Screening 10/17/1985 Regular Well Visit/Exam 18-64 10/17/1985 Zoster Vaccine (1 of 2) 10/17/2017 Influenza Vaccine (#1) 2025 03/01/2018 Breast Cancer Screening-Mammogram 05/07/2025 05/07/2024, 05/02/2023, 03/31/2022, Additional history exists DTaP/Tdap/Td Vaccine (2 - Td or Tdap) 04/30/2027 04/30/2017 Pneumococcal vaccine <65 Aged Out No longer eligible based on patient's age to complete this topic Procedures Procedure Name Priority Date/Time Associated Diagnosis Comments SCREENING MAMMOGRAM BILATERAL W PANCHO Schedule Routine, Read Routine (OP Routine) 05/07/2024 9:44 AM MARINE PILOT Screening mammogram, encounter for from Last 3 Months or Most Recently Relevant to Health Maintenance Results * Screening Mammogram Bilateral W Pancho (05/07/2024 9:44 AM MARINE PILOT) Anatomical Region Laterality Modality Breast Bilateral Mammography Narrative 05/08/2024 9:52 AM MARINE PILOT Mammogram Technique: Bilateral Digital Breast Tomosynthesis, Bilateral C-view 2D Screening mammogram. Views obtained: bilateral craniocaudal and bilateral mediolateral oblique. Computer Aided Detection was performed. Mammogram Findings: The present examination has been compared to prior imaging studies performed at [facility] on 01/16/2021, 03/31/2022 and 05/02/2023. There are [...] compared to prior imaging studies performed at [facility] on 01/16/2021, 03/31/2022 and 05/02/2023. There are scattered areas of fibroglandular density. There is no suspicious abnormality in either breast. Impression: There is no mammographic evidence of malignancy. Annual screening mammography is recommended. OVERALL FINAL ASSESSMENT: BI-RADS CATEGORY 1: Negative. us Self Screening Mammogram IMG MAMMO PROCEDURES Fi nal Result from Last 3 Months or Most Recently Relevant to Health Maintenance Insurance [employer] ACCESS CHOICE [employer] ACCESS CHOICE [employer] ACCESS CHOICE Care Teams Credit Risk Specialist Relationship Specialty Start Date End Date Dick Kent DO [address] [place] [address] PCP - General Internal Medicine 05/02/23 Bree Montemayor MD [address] [place] [address] Referring Physician Gynecology 03/31/22
--- OUTSIDE RECORDS SUMMARY | 2024-12-13 10:14 | XMS_ITS | Clinical Summary ---
Author Organization [facility] Address [address], [address] [place] [address] [address] Phone Care Team Providers Care Machine Bunch Maker Name Role Phone Dick Kent DO Primary Care Provider Aliya Cabral DRILLING MANAGER, BIOMEDICAL ENGINEERING AIDE Unavailable Allergies No known active allergies Medications sertraline (ZOLOFT) 100 MG Tablet Take 100 mg by mouth daily. Active dicyclomine (BENTYL) 20 MG Tablet Take 1 Tab by mouth every 6 hours as needed. 120 Tab 1 7 Active metroNIDAZOLE (FLAGYL) 500 MG Tablet Take 1 Tab by mouth 3 times daily. 30 Tab 0 7 Active folic acid (FOLVITE) 1 MG Tablet Take 1 Tab by mouth daily. 30 Tab 11 7 Active Vitamin B-1 (THIAMINE) 100 MG Tablet Take 1 Tab by mouth daily. 30 Tab 3 7 Active polyethylene glycol (MIRALAX) Powder Use entire 255g bottle with 64oz of clear liquid as directed for colonoscopy prep. 255 g 0 7 Active Active Problems No known active problems Family History Medical History Relation Name Comments Cancer Father lung Depression Mother w/Anxiety Relation Name Status Comments Father Mother Social History Tobacco Use Types Packs/Day Years Used Date Smoking Tobacco: Never Alcohol Use Standard Drinks/Week Comments Yes 20 (1 standard drink = 0.6 oz pu re alcohol) daily Comments No Sex and Gender Information Value Date Recorded Sex Assigned at Not on file Legal Sex Female 11:04 PM CDT Gender Identity Not on file Sexual Orientation Not on file Last Filed Vital Signs Vital Sign Reading Time Taken Comments Blood Pressure 110/70 07/12/2016 9:38 AM VICE PRESIDENT CLIENT SERVICES Pulse 62 07/12/2016 9:38 AM VICE PRESIDENT CLIENT SERVICES Temperature 37 C (98.6 F) 07/12/2016 9:38 AM VICE PRESIDENT CLIENT SERVICES Respiratory Rate 14 07/12/2016 9:38 AM VICE PRESIDENT CLIENT SERVICES Oxygen Saturation 96% 07/12/2016 9:38 AM VICE PRESIDENT CLIENT SERVICES Inhaled Oxygen Concentration - - Weight 85.3 kg (188 lb) 07/12/2016 9:38 AM VICE PRESIDENT CLIENT SERVICES Height 152.4 cm (5') 07/12/2016 9:38 AM VICE PRESIDENT CLIENT SERVICES Body Mass Index 36.72 07/12/2016 9:38 AM VICE PRESIDENT CLIENT SERVICES Plan of Treatment Health Maintenance Due Date Last Done Comments Hepatitis C Virus (HCV) Screening 1965 Mammogram 1965 TdaP Immunization 1967 Hepatitis B Immunization (1 of 3 - 19+ 3-dose series) 10/17/1986 Pap Smear 10/17/1988 Cervical Cancer Screening (CCS) 10/17/1997 HPV/Cotest 10/17/1997 Cologuard 10/17/2012 Immunochemical Fecal Occult Blood 10/17/2012 Pneumococcal Immunization (5 0+ years) (1 of 1 - PCV) 10/17/2017 Zoster Immunization (1 of 2) 10/17/2017 SARS-COV-2 Immunization (1 - season) 2024 Influenza Immunization (#1) 2025 Colonoscopy 10/13/2026 10/13/2016, 07/06/2011 Colorectal Cancer Screening 10/13/2026 Respiratory Syncytial Virus (RSV) Immunization (Adult) (1 - 1-dose 75+ series) 10/17/2042 Human Papillomavirus (HPV) Immunization Aged Out No longer eligible b ased on patient's age to complete this topic Meningococcal Immunization (ACWY) Aged Out No longer eligible b ased on patient's age to complete this topic Rotavirus Immunization Aged Out No lo nger eligible based on patient's age to complete this topic Procedures Procedure Name Priority Date/Time Associated Diagnosis Comments COLONOSCOPY Routine 10/13/2016 from Last 3 Months or Most Recently Relevant to Health Maintenance Results * HM COLONOSCOPY (10/13/2016) Dick Kent DO PROCEDURE/MINOR SURGICA L ORDERABLES Edited Result - Final from Last 3 Months or Most Recently Relevant to Health Maintenance Insurance [facility] Care Teams Machine Bunch Maker Relationship Specialty Start Date End Date Dick Kent DO [address] [place] [address] [place] [address] PCP - General Internal Medicine 03/31/16 Aliya Cabral APRN, BIOMEDICAL ENGINEERING AIDE [address] [place] [address] [place] [address] Nurse Practitioner Advanced Practice Nurse 07/12/16
--- OUTSIDE RECORDS SUMMARY | 2024-12-13 10:14 | XMS_ITS | Patient Health Record ---
Author Organization [facility] As Ang[facility] List Address [address] [place] [address] Care Team Providers Care Retreader Name Role Phone Yoli SMITH Dick Primary Care Provider Briana Dallas Unavailable [phone] Allergies No Known Allergies Reason For Referral No Information Medications Medication SIG (Take, Route, Frequency, Duration) Notes Start Date End Date Status traZODone HCl 150 MG 1 tablet at bedtime Oral at bedtime; Duration: 90 days appt needed Active Wegovy 1 MG/0.5ML 1 MG (0.5 ML) SUBCUTANEOUSLY WEEKLY ADMINISTER WEEKS 9 THROUGH 12 OF THERAPY Subcutaneous; Duration: 28 Days Active HYDROcodone-Aceta minophen 5-325 MG Oral 08/25/2023 Not-Taking Soolantra 1 % External 08/25/2023 Not-T aking hydrOXYzine HCl 10 MG TAKE 1 TABLET BY MOUTH TWICE A DAY FOR 30 DAYS; Duration: 90 Active traZODone HCl 50 MG TAKE 1 TABLET BY MOUTH AT BEDTIME FOR 90 DAYS Oral; Duration: 90 Days Active D3-50 1.25 MG (26749 UT) TAKE 1 CAPSULE BY MOUTH WEEKLY Oral; Duration: 28 Days Active ID Now COVID-19 In Vitro *Reorder from [employer] for eRx and Interaction Alerts* 08/25/2023 Not-Taking Azelastine HCl 137 MCG/SPRAY Nasal 08/25/2023 Active Famotidine 20 MG Oral 08/25/2023 No t-Taking Budesonide 3 MG Oral 08/25/2023 Not -Taking Minocycline HCl 100 MG Oral 08/25/2023 Not-Taking Meloxicam 15 MG TAKE 1 TABLET (15 MG TOTAL) BY MOUTH DAILY WITH FOOD NEEDED FOR PAIN Oral; Duration: 30 Days Active Aspirin Low Dose 81 MG TAKE 1 TABLET BY MOUTH TWICE A DAY FOR 28 DAYS Oral; Duration: 28 Days Active Omeprazole 40 MG Oral 08/25/2023 No t-Taking Eliquis 5 MG Oral 08/25/2023 Not-Ta haresh Vilazodone HCl 40 MG TAKE 1 TABLET BY MOUTH EVERY DAY WITH FOOD; Duration: 90 appointment needed Active Immunizations Vaccine Route Administration Date Status Comme nts Moderna Covid-19 Vaccine 1st dose Unknown 08/21/2020 Ad ministered Moderna Covid-19 Vaccine 1st dose Unknown 09/18/2020 Ad ministered Moderna Covid-19 Vaccine 1st dose Unknown 05/12/2021 Ad ministered Tdap Unknown 03/06/2023 Administered Social History Sex Assigned At : Social History Observation Description Sex Assigned At Female Household Question Answer Notes Marital status: Number of adults in household: 2 Number of children in household: 1 daughter- lives in [place] has 2 children Level of education: finished college 4 year Sexual History Question Answer Notes Had sex in the past 12 months (vaginal, oral, or anal)? Yes with Men only AUDIT-C (Standard) Question Answer Notes Did you have a drink contain ing alcohol in the past year? Yes How often did you have six o r more drinks on one occasion in the past year? 4 or more times a week (4 points) How many drinks did you have on a typical day when you were drinking in the past year? 3 or 4 drinks (1 point) How often did you have a dri nk containing alcohol in the past year? Daily or almost daily (4 points) Points 9 Interpretation Positive Problems Problem Type SNOMED Code ICD Code Onset Dates Problem Status W/U Status Risk Notes Problem Alcohol dependence (76447971) Alcohol dependence, uncomplicated (F10.20) 4 Active confirmed Problem Severe recurrent major depression without psychotic features (40991511) Major depressive disorder, recurrent severe without psychotic features (F33.2) 4 Active confirmed Problem Generalized anxiety disorder (16484514) Generalized anxiety disorder (F41.1) 4 Active confirmed Problem Insomnia disorder related to another mental disorder (81315885) Insomnia due to other mental disorder (F51.05) Active confirmed Problem Depression Screening (831184144) Encounter for screening for depression (Z13.31) Active confirmed Problem Moderate recurrent major depression (48223587) MDD (major depressive disorder), recurrent episode, moderate (F33.1) Active confirmed Vital Signs Heart Rate 85 /min 09/06/2024 Height-cm 165.10 cm 09/06/2024 Blood pressure diastolic 82 mm Hg 09/06/2024 Weight-kg 80.29 kg 09/06/2024 Height 65.00 in 09/06/2024 Blood pressure systolic 117 mm Hg 09/06/2024 Weight 177 lbs 09/06/2024 BMI 29.45 kg/m2 09/06/2024 Encounters Encounter Location Date Provider Diagnosis [facility] [employer] [address] [address] 02/26/2024 Briana England Major depressive disorder, recurrent severe without psychotic features F33.2 ; Generalized anxiety disorder F41.1 ; Insomnia due to other mental disorder F51.05 and Alcohol dependence, uncomplicated F10.20 [facility] [employer] [address] [address] 09/06/2024 Briana England Generalized anxiety disorder F41.1 ; MDD (major depressive disorder), recurrent episode, moderate F33.1 ; Insomnia due to other mental disorder F51.05 ; Alcohol dependence, uncomplicated F10.20 and Encounter for screening for depression Z13.31 [facility] [employer] [address] [address] 05/02/2024 Briana nEgland Assessments Encounter Date Diagnosis (ICD Code) Assessment Notes Treatment Notes Treatment Clinical Notes Section Notes 02/26/2024 Major depressive disorder, recurrent severe without psychotic features (ICD-10 - F33.2) Preventing Depression From Coming Back: Care Instructions material was published, Learning About How to Get Help During a Mental Health Crisis material was published, Learning About Depression material was published, Learning About Depression Screening material was published Depression- havning more depression and anxiety- Will increase Viibyrd 40 mg daily - eat 350 calories with rx Anxiety- Viibyrd 40 mg daily Insomnia- Trazodone 100 mg - patient takes 2 - 50 mg tabs- sleep hygiene educated to take Melatonin 3-5 mg at night OTC Alcohol use- working on decrease use to stop refer to therapy - Lety hx Naltrexone monitor B/P SURGERY PLANNED LT KNEE= 03/17/24 02/26/2024 Generalized anxiety disorder (ICD-10 - F41.1) Learning About Generalized Anxiety Disorder material was published, Generalized Anxiety Disorder: Care Instructions material was published Depression- havning more depression and anxiety- Will increase Viibyrd 40 mg daily - eat 350 calories with rx Anxiety- Viibyrd 40 mg daily Insomnia- Trazodone 100 mg - patient takes 2 - 50 mg tabs- sleep hygiene educated to take Melatonin 3-5 mg at night OTC Alcohol use- working on decrease use to stop refer to therapy - Lety hx Naltrex[employer] monitor B/P SURGERY PLANNED LT KNEE= 03/17/24 09/06/2024 Generalized anxiety disorder (ICD-10 - F41.1) Learning About Generalized Anxiety Disorder material was published, Generalized Anxiety Disorder: Care Instructions material was published, Learning About Generalized Anxiety Disorder material was published, Generalized Anxiety Disorder: Care Instructions material was published, Learning About Transcranial Magnetic Stimulation (TMS) material was published, Learning About Anxiety Disorders material was published 1. Depression- Viibyrd 40 mg daily - eat 350 calories with rx 2.Anxiety- Viibyrd 40 mg daily discuss and educated on adding Vistaril 10 mg twice a day PRN for anxiety and panic 3.Insomnia- continue to have sleep disturbances Increase Trazodone 150 mg - sleep hygiene educated to take Melatonin 3-5 mg at night OTC 4.Alcohol use- working on decrease use to stop discuss AA Therapy support groups refer to therapy - Lety hx N[employer] monitor B/P educated on all medications, benefits, side effects and risk, and educated on depression, anxiety, and ADHD, mood d/o and educated on compliance of medications, metabolic and movement d/o education appointment is, continue therapy discussion with patient about course of treatment and patient instructions. education on serotonin syndrome SSRI/SNRI side effects discussed including but not limited to, gastric upset, nausea, vomiting, diarrhea and/or constipation, weight changes, sexual side effects including loss of libido, increased suicidal thoughts/behavi ors in children and young adults, and serotonin syndrome Medication Management and Follow-Up - Plan: - Schedule follow-up appointments every 1-3 months to monitor the patient's response to the medication regimen. - Reinforce the importance of avoiding recreational drug use due to potential neurotoxicity and interactions with prescribed medications. http_s://www.ni .nih.gov/heal th/topics/menta f-cdwjzc-zgyvph tions http_s://www.na mi.org/About-Me ntal-Illness/Tr eatments/Mental -Health-Medicat ions http_s://www.na mi.org/About-Me ntal-Illness/Me ujhr-Fbrrfl-Uec ditions http_s://psychc entral.com/depr ession/the-cogn itive-symptoms- of-depression#t reatments http__s://www.[facility].nih.gov/hea lt/topics/ment yx-mcafyp-exsys ations http__s://www.[facility].org/About-M ental-Illness/T reatments/Menta v-Opvdzk-Pwnapn tions 09/06/2024 MDD (major depressive disorder), recurrent episode, moderate (ICD-10 - F33.1) Preventing Depression From Coming Back: Care Instructions material was published, Learning About Depression Screening material was published, Learning About Depression material was published 1. Depression- Viibyrd 40 mg daily - eat 350 calories with rx 2.Anxiety- Viibyrd 40 mg daily discuss and educated on adding Vistaril 10 mg twice a day PRN for anxiety and panic 3.Insomnia- continue to have sleep disturbances Increase Trazodone 150 mg - sleep hygiene educated to take Melatonin 3-5 mg at night OTC 4.Alcohol use- working on decrease use to stop discuss AA Therapy support groups refer to therapy - Lety Camacho monitor B/P educated on all medications, benefits, side effects and risk, and educated on depression, anxiety, and ADHD, mood d/o and educated on compliance of medications, metabolic and movement d/o education appointment is, continue therapy discussion with patient about course of treatment and patient instructions. education on serotonin syndrome SSRI/SNRI side effects discussed including but not limited to, gastric upset, nausea, vomiting, diarrhea and/or constipation, weight changes, sexual side effects including loss of libido, increased suicidal thoughts/behavi ors in children and young adults, and serotonin syndrome Medication Management and Follow-Up - Plan: - Schedule follow-up appointments every 1-3 months to monitor the patient's response to the medication regimen. - Reinforce the importance of avoiding recreational drug use due to potential neurotoxicity and interactions with prescribed medications. http_s://www.ni .nih.gov/heal th/topics/menta e-qkunpc-dzdhvh tions http_s://www. mi.org/About-Me ntal-Illness/Tr eatments/Mental -Health-Medicat ions http_s://www.na mi.org/About-Me ntal-Illness/Me josf-Ibyork-Mht ditions http_s://psychc entrElepago.com/depr ession/the-cogn itive-symptoms- of-depression#t reatments http__s://www.[facility].rust.gov/hea [facility]/topics/ment sy-orrcdn-nigcs ations http__s://www.[facility].org/About-M ental-Illness/T reatments/Menta y-Oxpnpd-Ileqdw tions 09/06/2024 Insomnia due to other mental disorder (ICD-10 - F51.05) 1. Depression- Viibyrd 40 mg daily - eat 350 calories with rx 2.Anxiety- Viibyrd 40 mg daily discuss and educated on adding Vistaril 10 mg twice a day PRN for anxiety and panic 3.Insomnia- continue to have sleep disturbances Increase Trazodone 150 mg - sleep hygiene educated to take Melatonin 3-5 mg at night OTC 4.Alcohol use- working on decrease use to stop discuss AA Therapy support groups refer to therapy - Lety Camacho monitor B/P educated on all medications, benefits, side effects and risk, and educated on depression, anxiety, and ADHD, mood d/o and educated on compliance of medications, metabolic and movement d/o education appointment is, continue therapy discussion with patient about course of treatment and patient instructions. education on serotonin syndrome SSRI/SNRI side effects discussed including but not limited to, gastric upset, nausea, vomiting, diarrhea and/or constipation, weight changes, sexual side effects including loss of libido, increased suicidal thoughts/behavi ors in children and young adults, and serotonin syndrome Medication Management and Follow-Up - Plan: - Schedule follow-up appointments every 1-3 months to monitor the patient's response to the medication regimen. - Reinforce the importance of avoiding recreational drug use due to potential neurotoxicity and interactions with prescribed medications. http_s://www.ni .nih.gov/heal th/topics/menta g-jdxajb-elgmkt tions http_s://www.na mi.org/About-Me ntal-Illness/Tr eatments/Mental -Health-Medicat ions http_s://www.na mi.org/About-Me ntal-Illness/Me ocoz-Dwbvkd-Fdp ditions http_s://psychc entral.com/depr ession/the-cogn itive-symptoms- of-depression#t reatments http__s://www.[facility].nih.gov/hea lt/topics/ment ls-klxxbd-ykwjn ations http__s://www.[facility].org/About-M ental-Illness/T reatments/Menta l-Dmebnl-Zyzxza tions 02/26/2024 Insomnia due to other mental disorder (ICD-10 - F51.05) Depression- havning more depression and anxiety- Will increase Viibyrd 40 mg daily - eat 350 calories with rx Anxiety- Viibyrd 40 mg daily Insomnia- Trazodone 100 mg - patient takes 2 - 50 mg tabs- sleep hygiene educated to take Melatonin 3-5 mg at night OTC Alcohol use- working on decrease use to stop refer to therapy - Lety cruz Naltrexone monitor B/P SURGERY PLANNED LT KNEE= 03/17/24 09/06/2024 Alcohol dependence, uncomplicated (ICD-10 - F10.20) Learning About Alcohol Use Disorder material was published, 9 Ways to Cut Back on Drinking material was published, Learning About Alcohol Withdrawal material was published, Alcohol Detoxification and Withdrawal: Care Instructions material was published, Learning About Alcohol Use Disorder material was published, Learning About Alcohol Withdrawal material was published, 9 Ways to Cut Back on Drinking material was published, Alcohol Detoxification and Withdrawal: Care Instructions material was published 1. Depression- Viibyrd 40 mg daily - eat 350 calories with rx 2.Anxiety- Viibyrd 40 mg daily discuss and educated on adding Vistaril 10 mg twice a day PRN for anxiety and panic 3.Insomnia- continue to have sleep disturbances Increase Trazodone 150 mg - sleep hygiene educated to take Melatonin 3-5 mg at night OTC 4.Alcohol use- working on decrease use to stop discuss AA Therapy support groups refer to therapy - Lety cruz Naltrexone monitor B/P educated on all medications, benefits, side effects and risk, and educated on depression, anxiety, and ADHD, mood d/o and educated on compliance of medications, metabolic and movement d/o education appointment is, continue therapy discussion with patient about course of treatment and patient instructions. education on serotonin syndrome SSRI/SNRI side effects discussed including but not limited to, gastric upset, nausea, vomiting, diarrhea and/or constipation, weight changes, sexual side effects including loss of libido, increased suicidal thoughts/behavi ors in children and young adults, and serotonin syndrome Medication Management and Follow-Up - Plan: - Schedule follow-up appointments every 1-3 months to monitor the patient's response to the medication regimen. - Reinforce the importance of avoiding recreational drug use due to potential neurotoxicity and interactions with prescribed medications. http_s://www.[facility].nih.gov/heal th/topics/menta l-csyrvi-uurbpg tions http_s://www.[facility].org/About-Me ntal-Illness/Tr eatments/Mental -Health-Medicat ions http_s://www.[facility].org/About-Me ntal-Illness/Me mbjb-Yddkpo-Nwh ditions http_s://psychc entrElepago.com/depr ession/the-cogn itive-symptoms- of-depression#t reatments http__s://www.[facility].rust.gov/hea [facility]/topics/ment lc-vscteb-jqhvu ations http__s://www.[facility].org/About-M ental-Illness/T reatments/Menta c-Eumpuu-Wamkmk tions 02/26/2024 Alcohol dependence, uncomplicated (ICD-10 - F10.20) Learning About Alcohol Use Disorder material was published, 9 Ways to Cut Back on Drinking material was published, Learning About Alcohol Withdrawal material was published, Alcohol Detoxification and Withdrawal: Care Instructions material was published Depression- havning more depression and anxiety- Will increase Viibyrd 40 mg daily - eat 350 calories with rx Anxiety- Viibyrd 40 mg daily Insomnia- Trazodone 100 mg - patient takes 2 - 50 mg tabs- sleep hygiene educated to take Melatonin 3-5 mg at night OTC Alcohol use- working on decrease use to stop refer to therapy - Lety hx Naltrexone monitor B/P SURGERY PLANNED LT KNEE= 03/17/24 09/06/2024 Encounter for screening for depression (ICD-10 - Z13.31) 1. Depression- Viibyrd 40 mg daily - eat 350 calories with rx 2.Anxiety- Viibyrd 40 mg daily discuss and educated on adding Vistaril 10 mg twice a day PRN for anxiety and panic 3.Insomnia- continue to have sleep disturbances Increase Trazodone 150 mg - sleep hygiene educated to take Melatonin 3-5 mg at night OTC 4.Alcohol use- working on decrease use to stop discuss AA Therapy support groups refer to therapy - Lety cruz Naltrexone monitor B/P educated on all medications, benefits, side effects and risk, and educated on depression, anxiety, and ADHD, mood d/o and educated on compliance of medications, metabolic and movement d/o education appointment is, continue therapy discussion with patient about course of treatment and patient instructions. education on serotonin syndrome SSRI/SNRI side effects discussed including but not limited to, gastric upset, nausea, vomiting, diarrhea and/or constipation, weight changes, sexual side effects including loss of libido, increased suicidal thoughts/behavi ors in children and young adults, and serotonin syndrome Medication Management and Follow-Up - Plan: - Schedule follow-up appointments every 1-3 months to monitor the patient's response to the medication regimen. - Reinforce the importance of avoiding recreational drug use due to potential neurotoxicity and interactions with prescribed medications. http_s://www.ni .nih.gov/heal th/topics/menta a-fybzys-dvvnrp tions http_s://www.na mi.org/About-Me ntal-Illness/Tr eatments/Mental -Health-Medicat ions http_s://www.na mi.org/About-Me ntal-Illness/Me zlhs-Azqsao-Onj ditions http_s://psychc entral.com/depr ession/the-cogn itive-symptoms- of-depression#t reatments http__s://www.[facility].nih.gov/hea [facility]/topics/ment kj-orvvdw-hjpil ations http__s://www.n ami.org/About-M ental-Illness/T reatments/Kin h-Vcxaxe-Gonyhk tions 02/26/2024 Other Vilazodone Oral Tablet (VILAZODONE - ORAL) material was published, Trazodone Oral Tablet (TRAZODONE - ORAL) material was published, Insomnia: Care Instructions material was published, Learning About Sleeping Well material was published Depression- havning more depression and anxiety- Will increase Viibyrd 40 mg daily - eat 350 calories with rx Anxiety- Viibyrd 40 mg daily Insomnia- Trazodone 100 mg - patient takes 2 - 50 mg tabs- sleep hygiene educated to take Melatonin 3-5 mg at night OTC Alcohol use- working on decrease use to stop refer to therapy - Lety cruz Naltrexone monitor B/P SURGERY PLANNED LT KNEE= 03/17/24 09/06/2024 Other Preventing Depression From Coming Back: Care Instructions material was published, Learning About How to Get Help During a Mental Health Crisis material was published, Learning About Depression material was published, Learning About Depression Screening material was published, Vilazodone material was published, Hydroxyzine material was published, Trazodone material was published, Learning About Sleeping Well material was published, Insomnia: Care Instructions material was published, Panic Attacks: Care Instructions material was published, Acute Stress Disorder (ASD): Care Instructions material was published, Learning About Acute Stress Disorder (ASD) material was published 1. Depression- Viibyrd 40 mg daily - eat 350 calories with rx 2.Anxiety- Viibyrd 40 mg daily discuss and educated on adding Vistaril 10 mg twice a day PRN for anxiety and panic 3.Insomnia- continue to have sleep disturbances Increase Trazodone 150 mg - sleep hygiene educated to take Melatonin 3-5 mg at night OTC 4.Alcohol use- working on decrease use to stop discuss AA Therapy support groups refer to therapy - Lety cruz Naltrexone monitor B/P educated on all medications, benefits, side effects and risk, and educated on depression, anxiety, and ADHD, mood d/o and educated on compliance of medications, metabolic and movement d/o education appointment is, continue therapy discussion with patient about course of treatment and patient instructions. education on serotonin syndrome SSRI/SNRI side effects discussed including but not limited to, gastric upset, nausea, vomiting, diarrhea and/or constipation, weight changes, sexual side effects including loss of libido, increased suicidal thoughts/behavi ors in children and young adults, and serotonin syndrome Medication Management and Follow-Up - Plan: - Schedule follow-up appointments every 1-3 months to monitor the patient's response to the medication regimen. - Reinforce the importance of avoiding recreational drug use due to potential neurotoxicity and interactions with prescribed medications. http_s://www.ni .nih.gov/heal th/topics/menta l-piebvb-fjzaff tions http_s://www.na mi.org/About-Me ntal-Illness/Tr eatments/Mental -Health-Medicat ions http_s://www.na mi.org/About-Me ntal-Illness/Me dyrb-Untjow-Pfi ditions http_s://[facility] [employer]Foodist/depr ession/the-cogn itive-symptoms- of-depression#t reatments http__s://www.[facility].rust.gov/hea [facility]/topics/ment mv-kghgkb-hhvpm ations http__s://www.[facility].org/About-M ental-Illness/T reatments/Menta e-Aaasfd-Nbeawn tions Plan Of Treatment No Information Insurance Providers Payer Name Payer Address Payer Phone Subscriber Number Group Number Insured Name Patient Relationship to Insured Coverage Start Date Coverage End Date [facility] [address] [place] [address] [id number] MIRABO GOLDSTEIN Self - patient is the insured Medical (General) History Medical History History ICD Code Problems: Alcohol dependence Generalized anxiety disorder Insomnia disorder related to another men bucky disorder Severe alcohol dependence Severe recurrent major depression , Surgical History Surgery Date(Month/Year) Removal of gallbladder (65109) 5
--- OUTSIDE RECORDS SUMMARY | 2024-12-13 10:14 | XMS_ITS | Clinical Summary ---
Author Organization [facility] Address [address] [place] [address] Care Team Providers Care Wine Maker Name Role Phone Jose Key Primary Care Provider Un available Source Comments [facility],non-owned Affiliates and Associated Physician Practices is amultiple site organization consisting of ambulatory clinics and hospital sitesin [place], [place], [place] and [place]. This disclosure is being madepursuant to the Care Everywhere program and may not contain all information available regarding this patient. Last updated 18.[facility] Allergies No known active allergies Medications * Be aware that medications may not be up to date on this document. Alwaysverify current medications with the patient. apixaban (Eliquis) 5 MG tablet Oral 4 Active aspirin EC (Ecotrin) 81 MG tablet Take 1 (one) tablet by mouth as needed Only when flies Active Cholecalcifero l 1.25 MG (30114 UT) TAKE 1 CAPSULE BY MOUTH WEEKLY Oral for 28 Days Active meloxicam (Mobic) 15 MG tablet TAKE 1 TABLET (15 MG TOTAL) BY MOUTH DAILY WITH FOOD NEEDED FOR PAIN Oral for 30 Days 4 Active ondansetron, disintegrating , (Zofran ODT) 4 MG tablet TAKE 1 TABLET EVERY 6 HOURS NEEDED FOR NAUSEA AND VOMITING 4 Active Wegovy 2.4 MG/0.75ML pen INJECT 2.4 MG (0.75 ML) SUBCUTANEOUSLY WEEKLY 5 Active traZODone (Desyrel) 150 MG tablet 1 tablet at bedtime Oral at bedtime for 90 days Active vilazodone (Viibryd) 40 MG tablet TAKE 1 TABLET BY MOUTH EVERY DAY WITH FOOD 5 Active Active Problems Problem Noted Date Diagnosed Date Primary osteoarthritis invol ving multiple joints (right knee, both mid feet and 1st MTP joints) 10/21/2024 Assessment & Plan (10/21/2024 2:42 PM CDT): No suspicion of RA or other systemic inflammatory arthritis. Recommend if Rt knee becomes swollen to aspirate and submit fluid for cell count (>2000 WBC would be concerning). Positive VERONIKA (antinuclear an tibody) 1:40 borderline positive result with cytoplasmic pattern 10/21/2024 Overview (10/21/2024): Likely incidental finding without clinical significance but cytoplasmic VERONIKA can be associated with autoimmune chronic hepatitis (see lab orders). Assessment & Plan (10/21/2024 2:49 PM CDT): Likely incidental finding without clinical significance but cytoplasmic VERONIKA can be associated with autoimmune chronic hepatitis (see lab orders). By itself, a positive VERONIKA test does not indicate the presence of an autoimmune disease or the need for therapy. Approximately 15% of the normal population will have a positive VERONIKA test;and can also be seen in other conditions, such as thyroid diseases, viral infections or caused by some medications. The finding of a positive antinuclear antibody (VERONIKA), especially with a low pretest probability for an associated connective tissue disease, is currently considered to be of undetermined clinical significance (often referred to as a false positive result) with her historical elements/symptoms reviewed, current clinical examination findings, and additional available laboratory results reviewed, regarding this result not consistent with a specific diagnosis of a defined systemic connective tissue disease including systemic lupus erythematosus or systemic inflammatory rheumatic disorder by [employer] (ACR) diagnostic classification criteria at this time. Bo Meyers lacks features of any systemic autoimmune VERONIKA-related connective tissue disease. VERONIKA positivity is present in up to 30% of the normal population . Since the prevalence of SLE is only ~0.1%, most positive VERONIKA results can be attributed to other etiologies or considered represent f alse-positive results. VERONIKA positivity increases in prevalence with female gender, older age, and numerous other conditions. Antinuclear antibody overview: A test for antinuclear antibodies (VERONIKA) is common in people who are suspected of having an autoimmune or systemic connective tissue disease disorder. Antibodies are proteins that are made as part of the immune response. The result of an VERONIKA test may be used in 1 or more ways: To aid in diagnosis of an autoimmune or connective tissue disease disorder, to rule out autoimmune or connective tissue disease disorders in people presenting only with a few symptoms, to measure disease activity, and order to determine the specific type of disease that affects the patient. Of people with the following disorders or characteristics may have positive VERONIKA test results including systemic lupus erythematosus, scleroderma, mixed connective tissue disease, polymyositis/dermatomyositis, rheumatoid arthritis, rheumatoid vasculitis, Sjogren syndrome, drug-induced lupus, discoid lupus, possibly articular juvenile chronic idiopathic arthritis or ANCA related vasculitic syndromes. In addition, some people with autoimmune diseases that affect the gastrointestinal tract, thyroid gland, liver, or lung (including Pato's thyroiditis, Graves disease, autoimmune hepatitis, primary biliary cirrhosis, primary autoimmune cholangitis, inflammatory bowel disease including Crohn's disease or ulcerative colitis, and idiopathic pulmonary arterial hypertension) can have a positive VERONIKA test. Additionally, certain chronic infectious diseases, such as mononucleosis/EBV, hepatitis C virus infection, subacute bacterial endocarditis, tuberculosis, lymphoproliferative diseases, and human immunodeficiency virus (HIV) may also produce a positive VERONIKA test. As such, a positive VERONIKA does not necessarily mean that the person has lupus or another systemic connective tissue disease disorder. As noted earlier, many healthy people may have a positive VERONIKA test. The VERONIKA test is said to be a f alse positive test result when a person test positive but does not have any other features of autoimmune disease. This situation occurs more often in women and elderly people especially when tested in individuals with a low pretest probability for systemic lupus erythematosus or other systemic rheumatic connective tissue disease. Certain medications also may increase the chance of having a positive VERONIKA test which may or may not represent a drug-induced lupus type syndrome. Depending on the symptoms that led to the initial VERONIKA screening testing may be necessary and ordered for further evaluation may or may not be recommended for 1 or more of the disorders that can be associated with a positive VERONIKA. Elevated AST (SGOT) 10/21/2024 Assessment & Plan (10/21/2024 2:49 PM CDT): Alcohol related? Doubt autoimmune chronic hepatitis but with low positive VERONIKA detected with cytoplasmic pattern would follow up with anti-Smooth muscle/antimitochondrial Ab testing. Encounters Date Type Department Care Team Description 10/21/2024 2:00 PM CDT Office Visit [facility] - Rheumatology [address], [address] [place] [address] Rommel Bangura DO Primary osteoarthritis involving multiple joints (right knee, both mid feet and 1st MTP joints) (Primary Dx); Positive VERONIKA (antinuclear antibody) 1:40 borderline positive result with cytoplasmic pattern; Elevated sedimentation rate measurement (61 mm/hour as noted 3 weeks after left TKA surgery); Elevated AST (SGOT) from Last 3 Months Social History Tobacco Use Types Packs/Day Years Used Date Smoking Tobacco: Never Assessed PHQ-2 Answer Date Recorded Patient Health Questionnaire-2 Score 0 10/21/2024 Comments Unknown Sex and Gender Information Value Date Recorded Sex Assigned at Not on file Legal Sex Female 5:26 PM REBAR BENDER Gender Identity Not on file Sexual Orientation Not on file Last Filed Vital Signs Vital Sign Reading Time Taken Comments Blood Pressure 100/70 10/21/2024 2:00 PM CDT Pulse 72 10/21/2024 2:00 PM CDT Temperature 36.1 C (97 F) 10/21/2024 2:00 PM CDT Respiratory Rate 16 10/21/2024 2:00 PM CDT Oxygen Saturation 98% 10/21/2024 2:00 PM CDT Inhaled Oxygen Concentration - - Weight 81.6 kg (180 lb) 10/21/2024 2:00 PM CDT Height - - Body Mass Index - - Plan of Treatment Health Maintenance Due Date Last Done Comments COLOGUARD (AGES 45-75) - COLON CA SCREENING 1967 COLON MONITORING 1967 COLONOSCOPY - COLON CA SCREENING 1967 CT COLONOGRAPHY - COLON CA SCREENING 1967 Colorectal Cancer Screening 1967 FIT - COLON CA SCREENING 1967 FLEX SIG - COLON CA SCREENING 1967 LIPID TESTING 1967 HIV SCREENING 10/17/1982 HEPATITIS C SCREENING 10/13/1985 DTAP/TDAP/TD VACCINES (1 - Tdap) 10/17/1986 HEPATITIS B VACCINE (1 of 3 - 19+ 3-dose series) 10/17/1986 PAP SMEAR 10/17/1988 PNEUMOCOCCAL VACCINE 50+ (1 of 1 - PCV) 10/17/2017 ZOSTER VACCINE (1 of 2) 10/17/2017 COVID-19 VACCINE (4 - season) 2024 05/12/2021, 09/18/2020, 08/21/2020 INFLUENZA VACCINE (#1) 2025 MAMMOGRAM 05/07/2026 05/07/2024, 04/21, 05/02/2023, Additional history exists DEPRESSION SCREENING Completed 10/21/2024 HIB VACCINE Aged Out No longer eligi ble based on patient's age to complete this topic HPV VACCINE Aged Out No longer eligi ble based on patient's age to complete this topic MENINGOCOCCAL (Group B) VACCINE SHARED DECISION-MAKING Aged Out No longer eligible based on patient's age to complete this topic MENINGOCOCCAL GROUPS A/C/Y/W VACCINE Aged Out No longer eligible based on patient's age to complete this topic Insurance SELF PAY NO INSURANCE Member Subscriber Plan / Payer (Ef fective for All Dates) Name:Bo Meyers Member ID:Not on file Relation to Subscriber:Not on file Name:BO MEYERS Subscriber ID:Not on file Address: [address] [place] [id number] Payer ID:Not on file Group ID:Not on file Type:Self Pay Address: [facility] SELF PAY NO INSURANCE Member Subscriber Plan / Payer (Ef fective for All Dates) Name:Bo Meyers Member ID:Not on file Relation to Subscriber:Not on file Name:BO MEYERS Subscriber ID:Not on file Address: [address] [place] [address] Payer ID:Not on file Group ID:Not on file Type:Self Pay Address: [place], [place] SELF PAY NO INSURANCE Member Subscriber Plan / Payer (Ef fective for All Dates) Name:Bo Meyers Member ID:Not on file Relation to Subscriber:Not on file Name:BO MEYERS Subscriber ID:Not on file Address: [address] [place] [address] Payer ID:Not on file Group ID:Not on file Type:Self Pay Address: [place], [place] SELF PAY NO INSURANCE Member Subscriber Plan / Payer (Ef fective for All Dates) Name:Bo Meyers Member ID:Not on file Relation to Subscriber:Not on file Name:BO MEYERS Subscriber ID:Not on file Address: [address] [place] [address] Payer ID:Not on file Group ID:Not on file Type:Self Pay Address: [place], [place] SELF PAY NO INSURANCE Member Subscriber Plan / Payer (Ef fective for All Dates) Name:Bo Meyers K Member ID:Not on file Relation to Subscriber:Not on file Name:BO MEYERS Subscriber ID:Not on file Address: [address] [place] [address] Payer ID:Not on file Group ID:Not on file Type:Self Pay Address: [place], [place] * Guarantor: BO MEYERS Account Type Relation to Patient Date of Phone Billing Address Personal/Family Spouse Care Teams Wine Maker Relationship Specialty Start Date End Date Jose Key PCP - General 10/21/24
== END 2024-12-13 10:09 | disposition home or self-care (01) ==
LOC: ANHGOSHLAB 10:10
PROVIDERS: PCP Internal Medicine; Visit Provider Internal Medicine Rheumatology
DX: R70.0 Elevated erythrocyte sedimentation rate (principal)
CPT/HCPCS: 36415; 85652; 86381

== ENCOUNTER 2025-03-26 09:00 | Outpatient (RCR) | payer BC, SELFPAY ==
--- NOTE | 2025-01-10 09:04 | OPREHPOC ---
Outpatient Therapy Plan of Care This is a Multidisciplinary Plan of Care that may contain components documented by all disciplines (PT, OT, and ST.) PT Problem 1 PT Problem #1 Knowledge Deficit PT Goal 1 Goal / Goal Update Patient to demonstrate independence with HEP for improved self-reliance of symptom management. Target Visit 5 PT Problem 2 PT Problem #2 Pain PT Goal 1 Goal / Goal Update 1. Patient to decrease subjective reports of pain to <5/10 when negotiating stairs for improved ADL tolerance. 2. Patient to decrease subjective reports of pain to <5/10 when getting in/out of vehicle for improved ADL tolerance. 3. Pt will increase LEFS score by at least 9 points in order to demonstrate the minimal clinically important difference (MCID) in functional improvement. Target Visit 10 PT Problem 3 PT Problem #3 Impaired Gait PT Goal 1 Goal / Goal Update Patient to improve gait mechanics and stair negotiation to mild noted deficit and reciprocal pattern for improved community navigation. Target Visit 10 PT Problem 4 PT Problem #4 Impaired Strength PT Goal 1 Goal / Goal Update 1. Patient to demonstrate L knee extension strength >=4+/5 with no pain provocation for improved functional stability required for ADLs. 2. Patient to demonstrate VERITO hip strength >=5/5 for improved functional stability required for ADLs. Target Visit 10
--- NOTE | 2025-01-10 09:04 | PTOPEVAL1 ---
Assessment and note entered by Karey Neal, PT Evaluation Information Assessment Status Evaluation ICD-10 Condition Codes (PT) Pain in left knee M25.562 Subjective Information Primary Complaint: L Knee Pain History of current condition: Pt has a L TKA 03/14 after she tried a scope in August of that year. She has had a lot of issues with her knee after the replacement. She kept her own kneecap during the surgery. She is having a lot of grinding in the kneecap. She is very frustrate that she continues to have so many issues and just wants to get better. 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 the only thing that has gotten better after her replacement is her ability to walk on even floors without pain. She is worried about her upcoming trip to [place]. Sxs made worse with: stairs, inclines, changing pace, weight bearing, squatting, getting in/out of car, swinging golf club Sxs improved with: avoiding the use of her L leg CLOF: unable to climb normal stairs, unable to increase pace PLOF: no limitations Reported Pain Level Pain Score 0: Self Report Additional Pain Score Comments has to move the knee fast through ROM due to pain to get it out of that position Assessment PT Clinical Summary Pt is a 59 year old female who presents to physical therapy with a primary complaint of L knee pain after recovery from L TKA in February 2024. Pt demonstrates L knee and VERITO hip weakness, pain with increased weight bearing, decreased general mobility, gait deficit, difficulty negotiating stairs and decreased flexibility that limit their ability to perform ADLs. She also exhibits mild quadriceps atrophy and tenderness upon palpation to the quad tendon. Pt will benefit from skilled physical therapy to address the above listed deficits and return to PLOF. HEP instructed and written handout provided, EX tolerated well with no adverse effects to note post-session. Pt was educated on importance of adherence to HEP. Pt was also educated on anatomy, prognosis, home modalities, and PT POC. Plan of Care Interventions Aquatic Therapy,Electrical Stimulation,Gait Training,Hot Pack/Cold Pack,Manual Therapy,Neuro Re-education,Patient/Caregiver Education, Therapeutic Activities,Therapeutic Exercise,Self- Care/Home Management PT Services Indicated Yes These treatments will address the objective and functional deficits as defined above. The patient will be advanced safely and appropriately in order for the patient to progress towards his/her prior level of function. Additional exercises will be introduced and as well as a comprehensive home exercise program upon discharge, if needed, ?to ensure carryover of functional gains achieved in the clinic. This treatment plan has been reviewed and agreement upon by the patient.
--- NOTE | 2025-01-17 08:09 | PCPTNOTE ---
Patient called this morning to cancel her PT appointment this date due to a work conflict.
--- NOTE | 2025-01-22 13:45 | PCPTNOTE ---
Pt no called no showed for treatment session today. Voicemail was left reminding about upcoming appointments.
== END 2025-04-10 23:59 | disposition home or self-care (01) ==
LOC: ANHGOSHPT 09:00
PROVIDERS: PCP Internal Medicine; Visit Provider Orthopaedic Surgery
DX: Z47.1 Aftercare following joint replacement surgery (principal); Z96.652 Presence of left artificial knee joint
CPT/HCPCS: 97110; 97112; 97161; 97530

== ENCOUNTER 2025-03-26 09:51 | Outpatient (CLI) | payer BC, SELFPAY ==
[2025-03-26 13:59] LABS: Hematocrit 42.8 % (37.0-47.0); Hemoglobin 13.6 g/dL (12.0-15.0); Immature Granulocyte Percent A 0.2 % (0-0.5); Lymphocytes Absolute Auto 1.68 K/mm3 (0.9-3.2); Mean Corpuscular HGB Conc 31.8 g/dl (32-36); Mean Corpuscular Hemoglobin 31.5 pg (26-34); Mean Corpuscular Volume 99.1 fl (80-100); Nucleated Red Blood Cells Absolute Auto 0.000 K/mm3 (0.0-0.012); Nucleated Red Blood Cells Perc 0.0 % (0.0-0.2); Platelet Count Result 299 k/mm3 (150-375); Red Blood Count 4.32 M/mm3 (4.2-5.4); White Blood Count 5.2 K/mm3 (4.5-10.0)
[2025-03-26 15:52] LABS: Alanine Aminotransferase 27 U/L (6-35); Albumin Level 4.7 g/dL (3.5-5.1); Alkaline Phosphatase 70 U/L (38-126); Anion Gap 9 mmol/L (4-12); Aspartate Amino Transferase 41 U/L (14-36); Bilirubin,Total 0.6 mg/dL (0.2-1.3); Blood Urea Nitrogen 14 mg/dL (7-17); Calcium 9.3 mg/dL (8.4-10.2); Carbon Dioxide 25 mmol/L (22-30); Chloride 103 mmol/L (98-107); Estimated Glomerular Filt Rate > 60; Glucose 100 mg/dL (65-110); Potassium 4.6 mmol/L (3.4-5.0); Sodium 137 mmol/L (137-145); Total Protein 8.1 g/dL (6.3-8.2)
[2025-03-26 16:31] LABS: Thyroid Stimulating Hormone 0.751 uIU/mL (0.465-4.680)
[2025-03-26 17:06] LABS: Vitamin B12 237.0 pg/mL (239-931)
[2025-03-26 17:59] LABS: Hemoglobin A1C 4.8 % (<5.7)
--- OUTSIDE RECORDS SUMMARY | 2025-03-27 09:40 | XMS_ITS | Clinical Summary ---
Author Organization [facility] [address] Address [address] [place] [id number] Care Team Providers Care Front Attendant Name Role Phone Bree Montemayor MD Unavailable [phone] Dick Kent DO Primary Care Provider Allergies No known active allergies Medications vilazodone [...] on file Legal Sex Female 3:06 AM CHEMICAL EQUIPMENT CONTROLLER Gender Identity Female 05/11/2021 11:56 PM CHEMICAL EQUIPMENT CONTROLLER Sexual Orientation Straight 05/11/2021 11 :56 PM CHEMICAL EQUIPMENT CONTROLLER Last Filed Vital Signs Vital Sign Reading [...] Read Routine (OP Routine) 05/07/2024 9:44 AM CHEMICAL EQUIPMENT CONTROLLER Screening mammogram, encounter for from Last 3 Months or Most Recently Relevant to Health Maintenance Results * Screening Mammogram Bilateral W Pancho (05/07/2024 9:44 AM CHEMICAL EQUIPMENT CONTROLLER) Anatomical Region Laterality Modality Breast Bilateral Mammography Narrative 05/08/2024 9:52 AM CHEMICAL EQUIPMENT CONTROLLER Mammogram Technique: Bilateral Digital Breast Tomosynthesis, Bilateral C-view 2D Screening mammogram. Views obtained: bilateral craniocaudal and bilateral mediolateral oblique. Computer Aided Detection was performed. Mammogram Findings: The present examination has been compared to prior imaging studies performed at [facility] on 01/16/2021, 03/31/2022 and 05/02/2023. There are [...] compared to prior imaging studies performed at [facility] on 01/16/2021, 03/31/2022 and 05/02/2023. There are scattered areas of fibroglandular density. There is no suspicious abnormality in either breast. Impression: There is no mammographic evidence of malignancy. Annual screening mammography is recommended. OVERALL FINAL ASSESSMENT: BI-RADS CATEGORY 1: Negative. us Self Screening Mammogram IMG MAMMO PROCEDURES Fi nal Result from Last 3 Months or Most Recently Relevant to Health Maintenance Insurance [employer] ACCESS CHOICE ANTHEM ACCESS CHOICE Member Subscriber Plan / Payer ( fective 2010-Present) Name:Leslee Olivares Relation to Subscriber:Self Name:Leslee Olivares Payer ID:[id number] (NAIC) Type:[facility] [employer] Address: [address] [place] [address] ANTHEM ACCESS CHOICE Member Subscriber Plan / Payer ( fective 2019-Present) Name:Leslee Olivares Thomas Relation to Subscriber:Self Name:Leslee Olivares Payer ID:[id number] (NAIC) Type:[employer] Address: [address] [place] [address] Care Teams Front Attendant Relationship Specialty Start Date End Date Dick Kent DO [address] [place] [address] PCP - General Internal Medicine 05/02/23 Bree Montemayor MD [address] [place] [address] Referring Physician Gynecology 03/31/22
--- OUTSIDE RECORDS SUMMARY | 2025-03-27 09:41 | XMS_ITS | Clinical Summary ---
Author Organization [facility] Address [address] [place] [address] Care Team Providers Care It Communications Manager Name Role Phone Jose Key Primary Care Provider Un available Source Comments [facility],non-owned Affiliates and Associated Physician Practices is amultiple site organization consisting of ambulatory clinics and hospital sitesin [place], [place], [place] and [place]. This disclosure is being madepursuant to the Care Everywhere program and may not contain all information available regarding this patient. Last updated 18.[facility] Allergies No known active allergies Medications * Be aware that medications may not be up to date on this document. Alwaysverify current medications with the patient. apixaban (Eliquis) 5 MG tablet Oral 4 Active aspirin EC (Ecotrin) 81 MG tablet Take 1 (one) tablet by mouth as needed Only when flies Active Cholecalcifero l 1.25 MG (27793 UT) TAKE 1 CAPSULE BY MOUTH WEEKLY [...] erythematosus or systemic inflammatory rheumatic disorder by [place] [employer] (ACR) diagnostic classification criteria [...] follow up with anti-Smooth muscle/antimitochondrial Ab testing. Social History Tobacco Use Types Packs/Day Years Used Date Smoking Tobacco: Never Assessed PHQ-2 Answer Date Recorded Patient Health Questionnaire-2 Score 0 10/21/2024 Comments Unknown Sex and Gender Information Value Date Recorded Sex Assigned at Not on file Legal Sex Female 5:26 PM DIRECTOR E LEARNING Gender Identity Not on file Sexual Orientation [...] VACCINE (1 of 2) 10/17/2017 COVID-19 VACCINE ( - season) 2025 05/12/2021, 09/18/2020, 08/21/2020 INFLUENZA VACCINE (#1) 2025 [...] / Payer (Ef fective for All Dates) Name:oB Meyers Member ID:Not on file Relation to Subscriber:Not on file Name:BO MEYERS Subscriber ID:Not on file Address: [address] [place] [address] Payer ID:Not on file Group ID:Not on file Type:Self Pay Address: [place], [place] AN[place] SELF PAY NO INSURANCE Member Subscriber Plan / Payer (Ef fective for All Dates) Name:Bo Meyers Member ID:Not on file Relation to Subscriber:Not on file Name:BO MEYERS Subscriber ID:Not on file Address: [address] [place], [place] [id number] Payer ID:Not on file Group ID:Not on file Type:Self Pay Address: [place], [place] SELF PAY NO INSURANCE Member Subscriber Plan / Payer (Ef fective for All Dates) Name:Bo Meyers Member ID:Not on file Relation to Subscriber:Not on file Name:BO MEYERS Subscriber ID:Not on file Address: [address] [place] [address] Payer ID:Not on file Group ID:Not on file Type:Self Pay Address: [place], [place] SELF PAY NO INSURANCE Member Subscriber Plan / Payer (Ef fective for All Dates) Name:Bo Meyers Member ID:Not on file Relation to Subscriber:Not on file Name:BO MEYERS Subscriber ID:Not on file Address: [address] [place] [address] Payer ID:Not on file Group ID:Not on file Type:Self Pay Address: [place], [place] SELF PAY NO INSURANCE Member Subscriber Plan / Payer (Ef fective for All Dates) Name:Bo Meyers Member ID:Not on file Relation to Subscriber:Not on file Name:BO MEYERS Subscriber ID:Not on file Address: [address] [place] [address] Payer ID:Not on file Group ID:Not on file Type:Self Pay Address: [place], [place] * Guarantor: BO MEYERS Account Type Relation to Patient Date of Phone Billing Address Personal/Family Spouse Care Teams It Communications Manager Relationship Specialty Start Date End Date Jose Key PCP - General 10/21/24
--- OUTSIDE RECORDS SUMMARY | 2025-03-27 09:41 | XMS_ITS | Patient Health Record ---
Author Organization [facility] [employer] Address [address] [place] [address] Care Team Providers Care Hearth Feeder Name Role Phone Dick Kent DO Primary Care Provider Briana Dallas Unavailable [phone] Allergies No Known Allergies Reason For Referral No Information Medications Medication SIG (Take, Route, Frequency, Duration) Notes Start Date End Date Status Vilazodone HCl 40 MG Tablet TAKE 1 TABLET BY MOUTH EVERY DAY WITH FOOD; Duration: 90 appointment needed Active Wegovy 1 MG/0.5ML Solution Auto-injector 1 MG (0.5 ML) SUBCUTANEOUSLY WEEKLY ADMINISTER WEEKS 9 THROUGH 12 OF THERAPY Subcutaneous; Duration: 28 Days Active HYDROcodone-Aceta minophen 5-325 MG Tablet Oral 08/25/2023 Not-Taking Soolantra 1 % Cream External 08/25/2023 Not-Taking hydrOXYzine HCl 10 MG Tablet TAKE 1 TABLET BY MOUTH TWICE A DAY FOR 30 DAYS; Duration: 90 Active traZODone HCl 50 MG Tablet TAKE 1 TABLET BY MOUTH AT BEDTIME FOR 90 DAYS Oral; Duration: 90 Days Active D3-50 1.25 MG (38642 UT) Capsule TAKE 1 CAPSULE BY MOUTH WEEKLY Oral; Duration: 28 Days Active ID Now COVID-19 Kit In Vitro *Reorder from [employer] for eRx and Interaction Alerts* 08/25/2023 Not-Taking Azelastine HCl 137 MCG/SPRAY Solution Nasal 08/25/2023 Active Famotidine 20 MG Tablet Oral 08/25/2023 Not-Taking Budesonide 3 MG Capsule Delayed Release Particles Oral 08/25/2023 Not-Taking Minocycline HCl 100 MG Capsule Oral 08/25/2023 Not-Taking Meloxicam 15 MG Tablet TAKE 1 TABLET (15 MG TOTAL) BY MOUTH DAILY WITH FOOD NEEDED FOR PAIN Oral; Duration: 30 Days Active Aspirin Low Dose 81 MG Tablet Delayed Release TAKE 1 TABLET BY MOUTH TWICE A DAY FOR 28 DAYS Oral; Duration: 28 Days Active Omeprazole 40 MG Capsule Delayed Release Oral 08/25/2023 Not-Taking Eliquis 5 MG Tablet Oral 08/25/2023 Not-Taking traZODone HCl 150 MG Tablet 1 tablet at bedtime Orally Once a day; Duration: 30 day(s) appointment needed for refills Active Immunizations Vaccine Route Administration Date Status Comme nts Moderna Covid-19 Vaccine 1st dose Unknown 08/21/2020 Ad ministered Moderna Covid-19 Vaccine 1st dose Unknown 09/18/2020 Ad ministered Moderna Covid-19 Vaccine 1st dose Unknown 05/12/2021 Ad ministered Tdap Unknown 03/06/2023 Administered Social History Sex Assigned At : Social History Observation Description Sex Assigned At Female Social History Sexual History: Social Info Question Answer Notes Sexual History Had sex in the past 12 months (vaginal, oral, or anal)? Yes with Men only Household: Social Info Question Answer Notes Household Marital status: Number of adults in household: 2 Number of children in household: 1 daughter- lives in [place] has 2 children Level of education: finished college 4 year Any household tobacco use? No Any household pets? Yes dog Drug/Alcohol: Social Info Question Answer Notes Drugs Have you used drugs other than those for medical reasons in the past 12 months? No AUDIT-C (Standard) Did you have a drink containing alcohol in the past year? Yes How often did you have six or more drinks on one occasion in the past year? 4 or more times a week (4 points) How many drinks did you have on a typical day when you were drinking in the past year? 3 or 4 drinks (1 point) How often did you have a drink containing alcohol in the past year? Daily or almost daily (4 points) Points 9 Interpretation Positive Additional Details Category Social Info Options Details Migrated Social History Migrated Social History Alcohol Intake: Heavy 12/17/2021,Tobacco Years: Never smoker 06/15/2021 Drug/Alcohol: Do you smoke marijuana? Den ies Do you drink alcohol? Yes Problems Problem Type SNOMED Code ICD Code Onset Dates Problem Status W/U Status Risk Notes Problem Alcohol dependence (90382823) Alcohol dependence, uncomplicated (F10.20) 4 Active confirmed Problem Severe recurrent major depression without psychotic features (53737714) Major depressive disorder, recurrent severe without psychotic features (F33.2) 4 Active confirmed Problem Generalized anxiety disorder (23102729) Generalized anxiety disorder (F41.1) 4 Active confirmed Problem Insomnia disorder related to another mental disorder (71598343) Insomnia due to other mental disorder (F51.05) 4 Active confirmed Problem Depression Screening (529408614) Encounter for screening for depression (Z13.31) Active confirmed Problem Moderate recurrent major depression (53266888) MDD (major depressive disorder), recurrent episode, moderate (F33.1) Active confirmed Vital Signs Heart Rate 85 /min 09/06/2024 Height-cm 165.10 cm 09/06/2024 Blood pressure diastolic 82 mm Hg 09/06/2024 Weight-kg 80.29 kg 09/06/2024 Height 65.00 in 09/06/2024 Blood pressure systolic 117 mm Hg 09/06/2024 Weight 177 lbs 09/06/2024 BMI 29.45 kg/m2 09/06/2024 Encounters Encounter Location Date Provider Diagnosis [facility] [address] [facility] [address] [place] [address] 09/06/2024 Briana England Generalized anxiety disorder F41.1 ; MDD (major depressive disorder), recurrent episode, moderate F33.1 ; Insomnia due to other mental disorder F51.05 ; Alcohol dependence, uncomplicated F10.20 and Encounter for screening for depression Z13.31 [facility] [address] [facility] [address] [place] [address] 05/02/2024 Briana England Assessments Encounter Date Diagnosis (ICD Code) Assessment Notes Treatment Notes Treatment Clinical Notes Section Notes 09/06/2024 Generalized anxiety disorder (ICD-10 - F41.1) [...] interactions with prescribed medications. http_s://www.ni .nih.gov/heal th/topics/menta s-xgxpre-hgzrgz tions http_s://www.na mi.org/About-Me ntal-Illness/Tr eatments/Mental -Health-Medicat ions http_s://www.na ut.org/About-Me ntal-Illness/Me mhex-Xkcvte-Eov ditions http_s://psychc entral.com/depr ession/the-cogn itive-symptoms- of-depression#t reatments http__s://www.n [facility].nih.gov/hea [facility]/topics/ment ct-qdiczu-phvdm ations http__s://www.n [facility].org/About-M ental-Illness/T reatments/Menta y-Myqdfr-Zjklti tions 09/06/2024 MDD (major depressive disorder), recurrent [...] interactions with prescribed medications. http_s://www.ni .nih.gov/heal th/topics/menta m-lskfgi-pnvozk tions http_s://www.[facility].org/About-Me ntal-Illness/Tr eatments/Mental -Health-Medicat ions http_s://www.na ut.org/About-Me ntal-Illness/Me rpaq-Nmnwgk-Xqe ditions http_s://psychc entral.com/depr ession/the-cogn itive-symptoms- of-depression#t reatments http__s://www.count includes the [facility].nih.gov/[facility]/topics/ment ct-iuevck-usbzt ations http__s://www.[facility].org/About-M ental-Illness/T reatments/Menta x-Awoobx-Dscfgs tions 09/06/2024 Insomnia due to other mental [...] interactions with prescribed medications. http_s://www.ni .nih.gov/heal th/topics/menta w-lxsclr-xzmynf tions http_s://www.na ut.org/About-Me ntal-Illness/Tr eatments/Mental -Health-Medicat ions http_s://www.na ut.org/About-Me ntal-Illness/Me elbq-Xjrfbj-Tyh ditions http_s://psychc entral.com/depr ession/the-cogn itive-symptoms- of-depression#t reatments http__s://www.n [facility].nih.gov/hea [facility]/topics/ment dh-kuuzyz-kaygy ations http__s://www.[facility].org/About-M ental-Illness/T reatments/Menta m-Sompbt-Dqsxtz tions 09/06/2024 Alcohol dependence, uncomplicated (ICD-10 - F10.20) [...] interactions with prescribed medications. http_s://www.ni .nih.gov/heal th/topics/menta o-qlegxw-ygntfq tions http_s://www.na ut.org/About-Me ntal-Illness/Tr eatments/Mental -Health-Medicat ions http_s://www.na mi.org/About-Me ntal-Illness/Me mwrl-Gwhzgi-Cor ditions http_s://psychc entral.com/depr ession/the-cogn itive-symptoms- of-depression#t reatments http__s://www.count includes the [facility].nih.gov/hea lt/topics/ment lx-hucpxi-jdqep ations http__s://www.n ami.org/About-M ental-Illness/T reatments/Menta y-Xhxirx-Gfnxsf tions 09/06/2024 Encounter for screening for depression (ICD-10 [...] interactions with prescribed medications. http_s://www.ni .nih.gov/heal th/topics/menta z-pywsua-qcdrmi tions http_s://www.na mi.org/About-Me ntal-Illness/Tr eatments/Mental -Health-Medicat ions http_s://www.na mi.org/About-Me ntal-Illness/Me nakw-Fregat-Han ditions http_s://psychc entrIR [facility].com/depr ession/the-cogn itive-symptoms- of-depression#t reatments http__s://www.count includes the [facility].gov/hea [facility]/topics/ment jn-hapdny-bmiez ations http__s://www. ami.org/About-M ental-Illness/T reatments/Menta s-Ovbdcq-Uysjjx tions 09/06/2024 Other Preventing Depression From Coming Back: [...] neurotoxicity and interactions with prescribed medications. http_s://www.ni mh.nih.gov/heal th/topics/menta e-xouice-ytvspj tions http_s://www.na mi.org/About-Me ntal-Illness/Tr eatments/Mental -Health-Medicat ions http_s://www.na mi.org/About-Me ntal-Illness/Me nmqc-Ijcphu-Wgo ditions http_s://psychc entral.com/depr ession/the-cogn itive-symptoms- of-depression#t reatments http__s://www.n [facility].nih.gov/[facility]/topics/ment es-quzhfq-vnfof ations http__s://www.n [facility].org/About-M ental-Illness/T reatments/Menta j-Eyuhye-Merbyd tions Plan Of Treatment No Information Insurance Providers Payer Name Payer Address Payer Phone Subscriber Number Group Number Insured Name Patient Relationship to Insured Coverage Start Date Coverage End Date [employer] Ppo [address] [place] [address] [id number] Self - patient is the insured Medical (General) History Medical History History ICD Code Problems: Alcohol dependence Generalized anxiety disorder Insomnia disorder related to another men bucky disorder Severe alcohol dependence Severe recurrent major depression , Surgical History Surgery Date(Month/Year) Removal of gallbladder (40405) 5
--- OUTSIDE RECORDS SUMMARY | 2025-03-27 09:41 | XMS_ITS | Clinical Summary ---
Author Organization [facility] Address [address], [address] [address] Phone Care Team Providers Care Drop Forger Helper Name Role Phone Dick Kent DO Primary Care Provider Aliya Cabral LEASING ASSISTANT, TURF FARMER Unavailable Allergies No known active allergies Medications [...] Comments Blood Pressure 110/70 07/12/2016 9:38 AM [facility] Pulse 62 07/12/2016 9:38 AM [facility] Temperature 37 C (98.6 F) 07/12/2016 9:38 AM [facility] Respiratory Rate 14 07/12/2016 9:38 AM [facility]EM[facility] Oxygen Saturation 96% 07/12/2016 9:38 AM [facility] Inhaled Oxygen Concentration - - Weight 85.3 kg (188 lb) 07/12/2016 9:38 AM [facility]EM[facility] Height 152.4 cm (5') 07/12/2016 9:38 AM [facility] Body Mass Index 36.72 07/12/2016 9:38 AM [facility] Plan of Treatment Health Maintenance Due Date Last Done Comments Hepatitis C Virus (HCV) Screening 1965 TdaP Immunization 1965 Hepatitis B Immunization (1 of 3 - 19+ 3-dose series) 10/17/1986 Pap Smear 10/17/1988 Cervical Cancer Screening (CCS) 10/17/1997 HPV/Cotest 10/17/1997 Cologuard 10/17/2012 Immunochemical Fecal Occult Blood 10/17/2012 Pneumococcal Immunization (5 0+ years) (1 of 1 - PCV) 10/17/2017 Zoster Immunization (1 of 2) 10/17/2017 Influenza Immunization (#1) 2025 SARS-COV-2 Immunization (1 - season) 2025 Colonoscopy 10/13/2026 10/13/2016, 07/06/2011 Colorectal Cancer [...] Procedure Name Priority Date/Time Associated Diagnosis Comments HM COLONOSCOPY Routine 10/13/2016 from Last 3 Months or Most Recently Relevant to Health Maintenance Results * HM COLONOSCOPY (10/13/2016) Dick Kent DO PROCEDURE/MINOR SURGICA L ORDERABLES Edited Result - Final from Last 3 Months or Most Recently Relevant to Health Maintenance Insurance [facility] Care Teams Drop Forger Helper Relationship Specialty Start Date End Date Dick Kent DO [address] [facility] [place] [address] PCP - General Internal Medicine 03/31/16 Aliya Cabral, LEASING ASSISTANT, TURF FARMER [address] [place] [address] [place], [place] [id number] Nurse Practitioner Advanced Practice Nurse 07/12/16
== END 2025-03-26 09:52 | disposition home or self-care (01) ==
LOC: ANHGOSHLAB 09:52
PROVIDERS: PCP Internal Medicine; Visit Provider Clinical Nurse Specialist
DX: R14.0 Abdominal distension (gaseous) (principal); F10.90 Alcohol use, unspecified, uncomplicated; R19.6 Halitosis; K52.831 Collagenous colitis; E78.00 Pure hypercholesterolemia, unspecified; F41.8 Other specified anxiety disorders; R73.01 Impaired fasting glucose
CPT/HCPCS: 36415; 80053; 82607; 82746; 83036; 84443; 85025